=== PATIENT | female | born 1945 | race Caucasian/White ===

== ENCOUNTER 2019-05-28 18:06 | Inpatient (IN) | payer OTHER ==
[2019-05-28] MEDS ORDERED: ACETAMINOPHEN 325 MG TABLET (FP) PO ONE (18:14)
--- NOTE | 2019-05-28 19:01 | PDOC ---
Documentation entered by Yenny Stapleton SCRIBE, acting as scribe for Abhijit Adam MD. Abhijit Adam MD: This documentation has been prepared by the lucianibePieter Maria, SCRIBE, under my direction and personally reviewed by me in its entirety. I confirm that the documentation accurately reflects all work, treatment, procedures, and medical decision making performed by me. History of Present Illness - General Chief Complaint: Injury Stated Complaint: LOWER BACK PAIN History Source: Patient Exam Limitations: No Limitations - History of Present Illness Initial Comments: 05/28/19 18:23 Patient is a 73 year old female with a significant PMH of hyperthyroid, anxiety and depression who presents to the ED, via EMS, s/p fall earlier today. As per patient, she was opening her blinds, tripped, leaned against her bed and slid onto the floor. Patient states she fell onto her buttock. Patient then developed lower back pain radiating to lower legs. Patient did not take any medication for pain. Patient denies head injury. Denies loss of consciousness. Denies any other symptoms. Past History - Past Medical History Allergies/Adverse Reactions: Allergies Allergy/AdvReac Type Severity Reaction Status Date / Time No Known Allergies Allergy Verified 05/28/19 18:40 Home Medications: Ambulatory Orders Bupropion HCl [Bupropion Xl] 300 mg PO DAILY 05/28/19 Hyoscyamine Sulfate [Levsin 0.125MG Tablet -] 0.125 mg PO BID 05/28/19 Iron 65 mg PO DAILY 05/28/19 LORazepam [Ativan] 2 mg PO BID 05/28/19 Liothyronine Sodium 25 mcg PO DAILY 05/28/19 Omeprazole 40 mg PO DAILY 05/28/19 Sertraline HCl 100 mg PO DAILY 05/28/19 Ziprasidone HCl 160 mg PO HS 05/28/19 Review of Systems - Review of Systems Able to Perform ROS?: Yes Constitutional: No: Symptoms Reported, See HPI, Chills, Diaphoresis, Fever, Loss of Appetite, Malaise, Night Sweats, Weakness, Weight Stable, Unintentional Wgt. Loss, Unexplained wgt Loss, Other HEENTM: No: Symptoms Reported, See HPI, Eye Pain, Blurred Vision, Tearing, Recent change in vision, Double Vision, Cataracts, Ear Pain, Ocular Prothesis, Ear Discharge, Nose Pain, Nose Congestion, Tinnitus, Nose Bleeding, Hearing Loss , Throat Pain, Throat Swelling, Mouth Pain, Dental Problems, Difficulty Swallowing, Mouth Swelling, Other Respiratory: No: Symptoms reported, See HPI, Cough, Orthopnea, Shortness of Breath, SOB with Exertion, SOB at Rest, Stridor, Wheezing, Productive cough, Hemoptysis, Other Cardiac (ROS): No: Symptoms Reported, See HPI, Chest Pain, Edema, Irregular Heart Rate, Lightheadedness, Palpitations, Syncope, Chest Tightness, Other ABD/GI: No: Symptoms Reported, See HPI, Abdominal Distended, Abd. Pain w/ defecation, Blood Streaked Bowels, Constipated, Diarrhea, Difficulty Swallowing , Nausea, Poor Appetite, Poor Fluid Intake, Rectal Bleeding, Vomiting, Indigestion, Abdominal cramping, Tarry Stools, Other : No: Symptoms Reported, See HPI, Burning, Dysuria, Discharge, Frequency, Flank Pain, Hematuria, Incontinence, Pain, Urgency, Testicular Mass, Testicular Swelling, Lesions, Testicular Pain, Other Musculoskeletal: Yes: Other (Back Pain and leg pain). No: Symptoms Reported, See HPI, Back Pain, Gout, Joint Pain, Joint Swelling, Muscle Pain, Muscle Weakness, Neck Pain, Joint Stiffness Integumentary: No: Symptoms Reported, See HPI, Bruising, Change in Color, Change in Hair/Nails, Dryness, Erythema, Flushing, Lesions, Lumps, Pallor, Pruritus, Rash, Sweating, Other Neurological: No: Symptoms reported, See HPI, Headache, Numbness, Paresthesia, Pre-Existing Deficit, Seizure, Tingling, Tremors, Weakness, Unsteady Gait, Ataxia, Dizziness, Other Psychiatric: No: Anxiety, Depression, Frequent Crying, Stressors, Sleep Pattern Change, Emotional Problems, Mood Swings, Change in Appetite, Other Endocrine: No: Symptoms Reported, See HPI, Excessive Sweating, Flushing, Intolerance to Cold, Intolerance to Heat, Increased Hunger, Increased Thirst, Increased Urine, Unexplained Weight Gain, Unexplained Weight Loss, Change in Weight, Other Hematologic/Lymphatic: No: Symptoms Reported, See HPI, Anemia, Blood Clots, Easy Bleeding, Easy Bruising, Bleeding Diathesis, Lymph Node Abnormalities, Swollen Glands, Other All Other Systems: Reviewed and Negative *Physical Exam - Vital Signs Last Vital Signs Temp Pulse Resp BP Pulse Ox 97.5 F L 97 H 20 149/85 97 05/28/19 18:07 05/28/19 18:07 05/28/19 18:07 05/28/19 18:07 05/28/19 18:07 - Physical Exam Comments: 05/28/19 18:23 GENERAL: Well developed, well nourished. Awake and alert. No acute distress. HEENT: Normocephalic, atraumatic. PERRLA, EOMI. No conjunctival pallor. Sclera are non- icteric. Moist mucous membranes. Oropharynx is clear. NECK: Supple. Full ROM. No JVD. Carotid pulses 2+ and symmetric, without bruits. No thyromegaly. No lymphadenopathy. CARDIOVASCULAR: Regular rate and rhythm. No murmurs, rubs, or gallops. Distal pulses are 2+ and symmetric. PULMONARY: No evidence of respiratory distress. Lungs clear to auscultation bilaterally. No wheezing, rales or rhonchi. ABDOMINAL: Soft. Non-tender. Non-distended. No rebound or guarding. No organomegaly. Normoactive bowel sounds. MUSCULOSKELETAL Normal range of motion at all joints. No bony deformities or tenderness. No CVA tenderness. No spinal tenderness EXTREMITIES: No cyanosis. No clubbing. No edema. No calf tenderness. SKIN: + abrasions to b/l knees Warm and dry. Normal capillary refill. No rashes. No jaundice. NEUROLOGICAL: Alert, awake, appropriate. Cranial nerves 2-12 intact. No deficits to light touch and temperature in face, upper extremities and lower extremities. No motor deficits in the in face, upper extremities and lower extremities. Normoreflexic in the upper and lower extremities. Normal speech. Toes are down- going bilaterally. PSYCHIATRIC: Cooperative. Good eye contact. Appropriate mood and affect. ED Treatment Course - RADIOLOGY Radiology Studies Ordered: Category Date Time Status SPINE-LUMBAR SACRAL [RAD] Stat Radiology 05/28/19 18:14 Taken ED Progress Note - Progress Note Progress Note: 05/28/19 18:58 Xray lumbar spine: scoliosis, degenerative changes ? compression fracture Will obtain CT lumbar spine to r/o compression fracture Case to be endorsed to Dr. Esquivel at 1900. Discharge - Discharge Information Problems reviewed: Yes Clinical Impression/Diagnosis: Back pain Qualifiers: Back pain location: low back pain Chronicity: acute Back pain laterality: midline Sciatica presence: without sciatica Qualified Code(s): M54.5 - Low back pain Condition: Fair - Follow up/Referral - Patient Discharge Instructions - Post Discharge Activity
[2019-05-28] MEDS ORDERED: ACETAMINOPHEN 650 MG/20.3 ML ORAL SOLUTION (CUPS) ONE (19:23)
--- NOTE | 2019-05-28 21:16 | HP ---
Admitting History and Physical - Primary Care Physician PCP: Dr. Little - Admission Chief Complaint: low back pain s/p fall History of Present Illness: 73 year old female with a significant PMH of hyperthyroid, anxiety and depression who presents to the ED, via EMS, s/p fall earlier today. As per patient, she was opening her blinds, tripped, leaned against her bed and slid onto the floor. Patient states she fell onto her buttock. Patient then developed lower back pain radiating to lower legs. Patient did not take any medication for pain. Patient denies head injury. Denies loss of consciousness. Denies any other symptoms. History Source: Patient Limitations to Obtaining History: No Limitations - Past Medical History Gastrointestinal: Yes: GERD Psych: Yes: Anxiety, Bipolar, Depression Endocrine: Yes: Hypothyroidism - Past Surgical History Past Surgical History: Yes: None - Smoking History Smoking history: Never smoked Have you smoked in the past 12 months: No - Alcohol/Substance Use Hx Alcohol Use: No - Social History History of Recent Travel: No Home Medications - Allergies Allergies/Adverse Reactions: Allergies Allergy/AdvReac Type Severity Reaction Status Date / Time No Known Allergies Allergy Verified 05/28/19 18:40 - Home Medications Home Medications: Ambulatory Orders Bupropion HCl [Bupropion Xl] 300 mg PO DAILY 05/28/19 Hyoscyamine Sulfate [Levsin 0.125MG Tablet -] 0.125 mg PO BID 05/28/19 Iron 65 mg PO DAILY 05/28/19 LORazepam [Ativan] 2 mg PO BID 05/28/19 Liothyronine Sodium 25 mcg PO DAILY 05/28/19 Omeprazole 40 mg PO DAILY 05/28/19 Sertraline HCl 100 mg PO DAILY 05/28/19 Ziprasidone HCl 160 mg PO HS 05/28/19 Review of Systems - Review of Systems Constitutional: reports: No Symptoms Eyes: reports: No Symptoms HENT: reports: No Symptoms Neck: reports: No Symptoms Cardiovascular: reports: No Symptoms Respiratory: reports: No Symptoms Gastrointestinal: reports: No Symptoms Genitourinary: reports: No Symptoms Musculoskeletal: reports: Back Pain Integumentary: reports: No Symptoms Neurological: reports: No Symptoms Endocrine: reports: No Symptoms Hematology/Lymphatic: reports: No Symptoms Psychiatric: reports: No Symptoms Physical Examination Vital Signs: Vital Signs Temperature 97.5 F L 05/28/19 18:07 Pulse Rate 97 H 05/28/19 18:07 Respiratory Rate 20 05/28/19 18:07 Blood Pressure 149/85 05/28/19 18:07 O2 Sat by Pulse Oximetry (%) 97 05/28/19 18:07 Constitutional: Yes: No Distress, Calm Eyes: Yes: Conjunctiva Clear, EOM Intact HENT: Yes: Atraumatic, Normocephalic Neck: Yes: Supple, Trachea Midline Cardiovascular: Yes: Regular Rate and Rhythm Respiratory: Yes: Regular, CTA Bilaterally Gastrointestinal: Yes: Normal Bowel Sounds, Soft Musculoskeletal: Yes: WNL Edema: No Peripheral Pulses WNL: Yes Neurological: Yes: Alert, Oriented Imaging - Results X-ray: Report Reviewed (Xray lumbar spine: scoliosis, degenerative changes ? compression fracture) Problem List - Problems (1) Status post fall Code(s): Z91.81 - HISTORY OF FALLING (2) Ataxia Code(s): R27.0 - ATAXIA, UNSPECIFIED (3) Back pain Code(s): M54.9 - DORSALGIA, UNSPECIFIED Qualifiers: Back pain location: low back pain Chronicity: acute Back pain laterality : midline Sciatica presence: without sciatica Qualified Code(s): M54.5 - Low back pain (4) Depression Code(s): F32.9 - MAJOR DEPRESSIVE DISORDER, SINGLE EPISODE, UNSPECIFIED (5) Anxiety Code(s): F41.9 - ANXIETY DISORDER, UNSPECIFIED (6) GERD (gastroesophageal reflux disease) Code(s): K21.9 - GASTRO-ESOPHAGEAL REFLUX DISEASE WITHOUT ESOPHAGITIS (7) Hypothyroid Code(s): E03.9 - HYPOTHYROIDISM, UNSPECIFIED Assessment/Plan 73 year old female with a significant PMH of hyperthyroid, anxiety and depression who presents to the ED, via EMS, s/p fall earlier today, now with low back pain radiating down lower legs. # S/p fall # Lower back pain # Ataxia - Xray lumbar spine: scoliosis, degenerative changes ? compression fracture - CT Lumbar spine: compression fx of T12 with less than 20% height loss, and severe fxT11 ( appears old) - In ED given Tylenol - Pain management - follow up Ortho in AM - Physical therapy follow up # Pre-renal Azotemia - continue with IVF - follow up BMP in AM # Hypothyrodism -Liothyronine Sodium 25 mcg PO DAILY # Depression # Anxiety -Bupropion HCl 300 mg PO DAILY -LORazepam 2 mg PO BID -Sertraline HCl 100 mg PO DAILY -Ziprasidone HCl 160 mg PO HS - monitor for acute behavioral issues # GERD -Omeprazole 40 mg PO DAILY -Hyoscyamine Sulfate 0.125 mg PO BID DIET: Regular VTE: Heparin SQ Visit type - Emergency Visit Emergency Visit: Yes ED Registration Date: 05/28/19 Care time: The patient presented to the Emergency Department on the above date and was hospitalized for further evaluation of their emergent condition. - New Patient This patient is new to me today: Yes Date on this admission: 05/28/19 - Critical Care Critical Care patient: No
[2019-05-28 21:27] LABS: BASO % 0.4 % (0-2.0); HEMATOCRIT 42.4 % (32.4-45.2); HEMOGLOBIN 13.8 GM/dl (10.7-15.3); LYMPH % 14.3 % (8-40); MCH 31.5 pg (25.7-33.7); MCHC 32.6 g/dl (32.0-36.0); MEAN CELL VOLUME 96.8 fl (80-96); MEAN PLT VOLUME 7.3 fl (7.5-11.1); MONO % 4.6 % (3.8-10.2); NEUT % 79.7 % (42.8-82.8); PLATELET COUNT 252 K/MM3 (134-434); RBC 4.38 M/mm3 (3.60-5.2); RDW 13.5 % (11.6-15.6); WHITE BLOOD COUNT 10.5 K/mm3 (4.0-10.8)
[2019-05-28 21:37] LABS: ALBUMIN 3.6 g/dl (3.4-5.0); BILIRUBIN,TOTAL 0.2 mg/dl (0.2-1); CALCIUM 9.1 mg/dl (8.5-10); TOT PROT 6.4 g/dl (6.4-8.2)
--- NOTE | 2019-05-28 21:43 | PDOC ---
History of Present Illness - General Chief Complaint: Injury Stated Complaint: LOWER BACK PAIN Time Seen by Provider: 05/28/19 18:08 Past History - Past Medical History Allergies/Adverse Reactions: Allergies Allergy/AdvReac Type Severity Reaction Status Date / Time No Known Allergies Allergy Verified 05/28/19 18:40 Home Medications: Ambulatory Orders Bupropion HCl [Bupropion Xl] 300 mg PO DAILY 05/28/19 Hyoscyamine Sulfate [Levsin 0.125MG Tablet -] 0.125 mg PO BID 05/28/19 Iron 65 mg PO DAILY 05/28/19 LORazepam [Ativan] 2 mg PO BID 05/28/19 Liothyronine Sodium 25 mcg PO DAILY 05/28/19 Omeprazole 40 mg PO DAILY 05/28/19 Sertraline HCl 100 mg PO DAILY 05/28/19 Ziprasidone HCl 160 mg PO HS 05/28/19 COPD: No Thyroid Disease: Yes - Psycho Social/Smoking Cessation Hx Smoking History: Never smoked Have you smoked in the past 12 months: No Information on smoking cessation initiated: No Hx Alcohol Use: No Drug/Substance Use Hx: No *Physical Exam - Vital Signs Last Vital Signs Temp Pulse Resp BP Pulse Ox 97.5 F L 97 H 20 149/85 97 05/28/19 18:07 05/28/19 18:07 05/28/19 18:07 05/28/19 18:07 05/28/19 18:07 ED Treatment Course - LABORATORY CBC & Chemistry Diagram: 05/28/19 21:05 05/28/19 21:05 - ADDITIONAL ORDERS Additional order review: 05/28/19 21:05 RBC 4.38 MCV 96.8 H MCHC 32.6 RDW 13.5 MPV 7.3 L Neutrophils % 79.7 Lymphocytes % 14.3 Monocytes % 4.6 Eosinophils % 1.0 Basophils % 0.4 - Medications Given in the ED: ED Medications Discontinued Medications Generic Name Dose Route Start Last Admin Trade Name Freq PRN Reason Stop Dose Admin Acetaminophen 650 mg 05/28/19 18:14 05/28/19 19:26 Tylenol - PO 05/28/19 18:15 Not Given ONCE ONE Medical Decision Making - Medical Decision Making 05/28/19 21:41 received on signout. extensive degenerative disease on CT with old lower thoracic fracture. To my exam, no bony low back tenderness. She also has normal strength in lower extremities, though cannot ambulate because of poor coordination. Check labs to search for toxic/ metabolic etiology. Admit for serial exams Discharge - Discharge Information Problems reviewed: Yes Clinical Impression/Diagnosis: Back pain Qualifiers: Back pain location: low back pain Chronicity: acute Back pain laterality: midline Sciatica presence: without sciatica Qualified Code(s): M54.5 - Low back pain Condition: Fair - Follow up/Referral - Patient Discharge Instructions - Post Discharge Activity
--- NOTE | 2019-05-28 21:47 | PDOC ---
*Physical Exam - Vital Signs Last Vital Signs Temp Pulse Resp BP Pulse Ox 97.5 F L 97 H 20 149/85 97 05/28/19 18:07 05/28/19 18:07 05/28/19 18:07 05/28/19 18:07 05/28/19 18:07 ED Treatment Course - LABORATORY CBC & Chemistry Diagram: 05/28/19 21:05 05/28/19 21:05 - ADDITIONAL ORDERS Additional order review: Laboratory Results 05/28/19 21:05 Sodium 141 Potassium 4.0 Chloride 103 Carbon Dioxide 28 Anion Gap 10 BUN 31.0 H Creatinine 1.0 Est GFR (CKD-EPI)AfAm 64.27 Est GFR (CKD-EPI)NonAf 55.45 Random Glucose 104 Calcium 9.1 Total Bilirubin 0.2 AST 28 ALT 26 Alkaline Phosphatase 117 Total Protein 6.4 Albumin 3.6 05/28/19 21:05 RBC 4.38 MCV 96.8 H MCHC 32.6 RDW 13.5 MPV 7.3 L Neutrophils % 79.7 Lymphocytes % 14.3 Monocytes % 4.6 Eosinophils % 1.0 Basophils % 0.4 - Medications Given in the ED: ED Medications Discontinued Medications Generic Name Dose Route Start Last Admin Trade Name Freq PRN Reason Stop Dose Admin Acetaminophen 650 mg 05/28/19 18:14 05/28/19 19:26 Tylenol - PO 05/28/19 18:15 Not Given ONCE ONE Discharge - Discharge Information Problems reviewed: Yes Clinical Impression/Diagnosis: Back pain Qualifiers: Back pain location: low back pain Chronicity: acute Back pain laterality: midline Sciatica presence: without sciatica Qualified Code(s): M54.5 - Low back pain Condition: Fair - Admission Yes - Follow up/Referral - Patient Discharge Instructions - Post Discharge Activity
[2019-05-28] MEDS ORDERED: SODIUM CHLORIDE 0.9% 500 ML INFUS.BAG IV ONE (22:07)
[2019-05-28] MEDS ORDERED: SODIUM CHLORIDE 1,000 ML IV SCH (23:45)
[2019-05-29 08:13] LABS: HEMATOCRIT 38.3 % (32.4-45.2); HEMOGLOBIN 12.6 GM/dl (10.7-15.3); MCH 31.8 pg (25.7-33.7); MCHC 32.8 g/dl (32.0-36.0); MEAN CELL VOLUME 96.9 fl (80-96); MEAN PLT VOLUME 7.7 fl (7.5-11.1); PLATELET COUNT 169 K/MM3 (134-434); RBC 3.96 M/mm3 (3.60-5.2); WHITE BLOOD COUNT 5.6 K/mm3 (4.0-10.8)
[2019-05-29 08:17] LABS: CALCIUM 8.4 mg/dl (8.5-10); CREATININE 0.8 mg/dl (0.55-1.3); POTASSIUM 3.4 mmol/L (3.5-5.1)
[2019-05-29] MEDS ORDERED: PT OWN MED DRAWER 7, Y5N ONE (08:29)
[2019-05-29] MEDS ORDERED: POTASSIUM CHLORIDE TABS 20 MEQ TABLET.ER (FP) PO ONE (08:45)
[2019-05-29] MEDS ORDERED: HYOSCYAMINE SULFATE 0.125 MG TABLET PO SCH (10:00)
[2019-05-29] MEDS ORDERED: LORazepam 1 MG TABLET PO SCH (10:00)
[2019-05-29] MEDS: FERROUS SO4 325 MG TABLET (FP) PO SCH (10:08)
[2019-05-29] MEDS: HEPARIN NA (PORCINE) 5,000 UNITS/ML 1ML VIAL SQ SCH ×2 (10:08→21:30)
[2019-05-29] MEDS: SERTRALINE HCL 50 MG TABLET (FP) PO SCH (10:08)
[2019-05-29] MEDS: LIOTHYRONINE SODIUM 25 MCG TABLET PO SCH (10:09)
[2019-05-29] MEDS: PANTOPRAZOLE 40 MG TABLET (FP) PO SCH (10:09)
--- NOTE | 2019-05-29 12:17 | PN ---
Physical Exam: ADDITIONAL HPI Patient and HCP [facility] PCP is Dr. Adkins [phone]; called his office , she has not been seen there since 2016 [address]yschiatrist: Dr. Vadim Donohue: [phone]; cell [phone]; has been treating patient since 2001 for schizoaffective disorder and depression; has had multiple psych hospitalization over the years, none in the past few years; last time he was face to face with the patient was several years ago, conducts phone sessions, he has no information regarding her physicalhealth; the medications he prescribes are as follows: Ziprazadone PO 80 mg daily Sertraline 200mg daily Wellbutrin XL 300mg daily Liothyronine 25mcg daily (enhances effect of anti-depressants) Hyoscyamine 0.125mg BID Lorazepam 0.5mg QID3 Obtained records from [facility] 2015. Records show: Left total hip replacement Anterior 3mm listhesis of C2 on C3 03/16/16 CT spine: progressive erosive changes left C2-3 facet joint associated with edema, infectious v. inflammatory v. aggressive lesion; recommended MRI SUBJECTIVE: Patient seen and examined at bedside. Denies any type of pain. OBJECTIVE Vital Signs Period Temp Pulse Resp BP Sys/Miller Pulse Ox Last 24 Hr 97.5 F-98.2 F 88-106 17-20 117-149/70-96 93-97 GENERAL: The patient is A&O x 1 (month wrong, year 1970, place: meeting belcher) could not be reoriented; calm, friendly demeanor; thin, frail, cachectic. Protruding clavicles. Temporal wasting. Absence of body fat HEAD: Normal with no signs of trauma. EYES: PERRL, extraocular movements intact, sclera anicteric, conjunctiva clear. No ptosis. ENT: Missing teeth LUNGS: Breath sounds equal, clear to auscultation bilaterally, no wheezes, no crackles, no accessory muscle use. HEART: Regular rate and rhythm, S1, S2 ABDOMEN: Soft, nontender, nondistended, normoactive bowel sounds, no guarding, no rebound EXTREMITIES: Bilateral feet: multiple scabs on all toes, both feet; feet and lower ext deeply erythematous, 1+ DP pulses, warm NEUROLOGICAL: Cranial nerves II through XII grossly intact. Normal speech Laboratory Results - last 24 hr 05/28/19 05/28/19 05/29/19 21:05 21:05 06:55 WBC 10.5 5.6 RBC 4.38 3.96 Hgb 13.8 12.6 Hct 42.4 38.3 MCV 96.8 H 96.9 H MCH 31.5 31.8 MCHC 32.6 32.8 RDW 13.5 14.0 Plt Count 252 169 MPV 7.3 L 7.7 Absolute Neuts (auto) 8.4 Neutrophils % 79.7 Lymphocytes % 14.3 Monocytes % 4.6 Eosinophils % 1.0 Basophils % 0.4 Sodium 141 Potassium 4.0 Chloride 103 Carbon Dioxide 28 Anion Gap 10 BUN 31.0 H Creatinine 1.0 Est GFR (CKD-EPI)AfAm 64.27 Est GFR (CKD-EPI)NonAf 55.45 Random Glucose 104 Calcium 9.1 Total Bilirubin 0.2 AST 28 ALT 26 Alkaline Phosphatase 117 Total Protein 6.4 Albumin 3.6 05/29/19 06:55 WBC RBC Hgb Hct MCV MCH MCHC RDW Plt Count MPV Absolute Neuts (auto) Neutrophils % Lymphocytes % Monocytes % Eosinophils % Basophils % Sodium 142 Potassium 3.4 L Chloride 108 H Carbon Dioxide 27 Anion Gap 7 L BUN 21.0 H Creatinine 0.8 Est GFR (CKD-EPI)AfAm 84.18 Est GFR (CKD-EPI)NonAf 72.63 Random Glucose 76 Calcium 8.4 L Total Bilirubin AST ALT Alkaline Phosphatase Total Protein Albumin Active Medications Generic Name Dose Route Start Last Admin Trade Name Capoq PRN Reason Stop Dose Admin Bupropion HCl 300 mg 05/29/19 10:00 05/29/19 10:09 Wellbutrin Xl - PO 300 mg DAILY VALENCIA Administration Ferrous Sulfate 325 mg 05/29/19 10:00 05/29/19 10:08 Feosol - PO 325 mg DAILY VALENCIA Administration Heparin Sodium (Porcine) 5,000 unit 05/29/19 10:00 05/29/19 10:08 Heparin - SQ 5,000 unit BID VALENCIA Administration Liothyronine Sodium 25 mcg 05/29/19 10:00 05/29/19 10:09 Cytomel - PO 25 mcg DAILY VALENCIA Administration Lorazepam 2 mg 05/29/19 10:00 05/29/19 10:08 Ativan - PO 2 mg BID VALENCIA Administration Pantoprazole Sodium 40 mg 05/29/19 10:00 05/29/19 10:09 Protonix - PO 40 mg DAILY VALENCIA Administration Sertraline HCl 100 mg 05/29/19 10:00 05/29/19 10:08 Zoloft - PO 100 mg DAILY VALENCIA Administration Ziprasidone 160 mg 05/29/19 22:00 Geodon - PO HS VALENCIA ASSESSMENT/PLAN 73 year-old female with a PMH significant for schizoaffective disorder, depression, degenerative disc disease, s/p left total hip replacement. Has been treated via telephone sessions by her psychiatrist for several years. Has not seen PCP since ~2015. Last time brought to ED was to [place] in 2016. Adult Protective Services has been involved with patient. s/p fall at home Compression fractures --05/28 CT spine: T11 compression fracture which may be subacute; no obvious bony retropulsion; moderate T12 and mild to moderate L4 vertebral body compression fractures, chronic; at least moderate lumbar levoscoliosis; multilevel degenerate facet arthropathy; multilevel disc bulging; L3-L4 central canal stenosis --was unable to ambulate with PT --ortho consult pending Schizoaffective disorder --has had two episodes of acute agitation, one while in ED, and today on the floor; observed a rapid change in demeanor, from friendly and cooperative to suspicious, then agitated, then physically aggressive within several minutes; bitinge, threw ice water across the room onto a staff member; gave Haldol IVP 2mg --consult placed for Dr. Huynh for inpatient management --currently refusing PO meds; ziprasidone IV not in formulary; pharmacy ordered and will be here in am --for tonight will give ativan 1mg IM q6h PRN for extreme agitation, monitor respiratory status closely Prolonged QT interval --ECG from 2015 shows prolonged QTc 500; will attempt to get ECG now --check Mg level --keep K>4, Mg>2 --telemetry monitoring Hypokalemia --repleted FEN Fluids: NS@50mL/hr Electrolytes: replete as indicated Nutrition: regular diet DVT prophylaxis: subq heparin Physical therapy Dispo: continues to require inpatient care. Full code. Visit type - Emergency Visit Emergency Visit: Yes ED Registration Date: 05/28/19 Care time: The patient presented to the Emergency Department on the above date and was hospitalized for further evaluation of their emergent condition. - New Patient This patient is new to me today: Yes Date on this admission: 05/29/19 - Critical Care Critical Care patient: No
[2019-05-29] MEDS ORDERED: HALOPERIDOL LACTATE 5 MG/ML ONE (14:45)
[2019-05-29] MEDS ORDERED: HALOPERIDOL LACTATE 5 MG/ML IM ONE ×2 (15:00)
[2019-05-29] MEDS: ZIPRASIDONE 40 MG CAPSULE (FP) PO SCH ×2 (15:03→17:51)
[2019-05-29] MEDS: MUPIROCIN 2% TOPICAL OINTMENT 22 GM TUBE TP SCH (15:04)
[2019-05-29] MEDS ORDERED: SODIUM CHLORIDE 1,000 ML IV SCH (17:45)
[2019-05-29] MEDS ORDERED: LORazepam 2 MG/ML SDV VIAL IM PRN (17:52)
[2019-05-29 18:11] LABS: MAGNESIUM 2.1 mg/dL (1.8-2.4)
--- NOTE | 2019-05-29 18:32 | CONSULT ---
Consult Consult Specialty:: Vascular Surgery Reason for Consultation:: Bl lower extremity scabs. - History Source Limitations to Obtaining History: No Limitations - Past Medical History [employer]: Yes: Other (Schizo-affective disorder ) Gastrointestinal: Yes: GERD Psych: Yes: Anxiety, Bipolar, Depression Endocrine: Yes: Hypothyroidism - Past Surgical History Past Surgical History: Yes: None - Alcohol/Substance Use Hx Alcohol Use: No - Smoking History Smoking history: Never smoked Have you smoked in the past 12 months: No - Social History History of Recent Travel: No Home Medications - Allergies Allergies/Adverse Reactions: Allergies Allergy/AdvReac Type Severity Reaction Status Date / Time erythromycin base Allergy Severe Verified 05/29/19 16:36 Penicillins Allergy Severe Rash Verified 05/29/19 16:37 - Home Medications Home Medications: Ambulatory Orders Bupropion HCl [Bupropion Xl] 300 mg PO DAILY 05/28/19 LORazepam [Ativan] 0.5 mg PO QID 05/28/19 Liothyronine Sodium 25 mcg PO DAILY 05/28/19 Omeprazole 40 mg PO DAILY 05/28/19 Sertraline HCl 200 mg PO DAILY 05/28/19 Ziprasidone HCl 80 mg PO DAILY 05/28/19 Review of Systems - Review of Systems Constitutional: reports: No Symptoms Eyes: reports: No Symptoms HENT: reports: No Symptoms Neck: reports: No Symptoms Cardiovascular: reports: No Symptoms Respiratory: reports: No Symptoms Gastrointestinal: reports: No Symptoms Genitourinary: reports: No Symptoms Musculoskeletal: reports: No Symptoms Integumentary: reports: No Symptoms Neurological: reports: Confusion Endocrine: reports: No Symptoms Hematology/Lymphatic: reports: No Symptoms Physical Exam Vital Signs: Vital Signs Temperature 97.7 F 05/29/19 17:35 Pulse Rate 109 H 05/29/19 17:35 Respiratory Rate 20 05/29/19 17:35 Blood Pressure 145/87 05/29/19 17:35 O2 Sat by Pulse Oximetry (%) 95 05/29/19 14:00 Constitutional: Yes: Well Nourished, No Distress, Calm Eyes: Yes: WNL, Conjunctiva Clear, EOM Intact HENT: Yes: WNL, Atraumatic, Normocephalic Neck: Yes: WNL, Supple, Trachea Midline Cardiovascular: Yes: WNL, Regular Rate and Rhythm Respiratory: Yes: WNL, Regular, CTA Bilaterally Gastrointestinal: Yes: WNL, Normal Bowel Sounds ...Rectal Exam: Yes: WNL Renal/: Yes: WNL Breast(s): Yes: WNL Musculoskeletal: Yes: WNL Extremities: Yes: WNL, Other (Bl lower ext scabs on both feet. Palpable pulses. Dry extremities) Edema: No Peripheral Pulses WNL: Yes Integumentary: Yes: WNL Neurological: Yes: WNL, Alert, Oriented ...Motor Strength: WNL Psychiatric: Yes: WNL Labs: CBC, BMP 05/29/19 06:55 05/29/19 06:55 Problem List - Problems (1) Status post fall Assessment/Plan: Bl lower ext scabs with dryness. 1. Pt has bl lower ext palpable pulses. 2. Moisturize both legs. 3. BAcitracin to scabs on both feet daily. Barry Eller DO Code(s): Z91.81 - HISTORY OF FALLING
[2019-05-29] MEDS: LORazepam 0.5 MG TABLET PO SCH ×2 (18:35→21:31)
[2019-05-29] MEDS: BACITRACIN 15 GM TUBE TOPICAL OINTMENT TP SCH (18:59)
[2019-05-29] MEDS ORDERED: SERTRALINE HCL 50 MG TABLET (FP) PO ONE (19:17)
[2019-05-29] MEDS ORDERED: LORazepam 0.5 MG TABLET PO ONE (19:18)
[2019-05-29] MEDS ORDERED: ZIPRASIDONE 40 MG CAPSULE (FP) PO ONE (19:18)
[2019-05-29] MEDS: HYOSCYAMINE SULFATE 0.125 MG *ODT PO SCH (21:30)
[2019-05-29] MEDS: MINERAL OIL/PET HY-PHL TOPICAL OINTMENT 454 GM JAR TP SCH (21:31)
[2019-05-29] MEDS ORDERED: ZIPRASIDONE 40 MG CAPSULE (FP) PO SCH (22:00)
[2019-05-29] MEDS ORDERED: ZIPRASIDONE 80 MG CAPSULE PO SCH (22:00)
[2019-05-30 08:18] LABS: BASO % 0.8 % (0-2.0); HEMATOCRIT 39.9 % (32.4-45.2); LYMPH % 18.2 % (8-40); MCH 31.3 pg (25.7-33.7); MCHC 32.5 g/dl (32.0-36.0); MEAN CELL VOLUME 96.3 fl (80-96); MEAN PLT VOLUME 7.6 fl (7.5-11.1); MONO % 6.4 % (3.8-10.2); NEUT % 73.6 % (42.8-82.8); PLATELET COUNT 191 K/MM3 (134-434); RBC 4.14 M/mm3 (3.60-5.2); RDW 13.9 % (11.6-15.6); WHITE BLOOD COUNT 5.4 K/mm3 (4.0-10.8)
[2019-05-30 08:22] LABS: ALBUMIN 3.1 g/dl (3.4-5.0); BILIRUBIN,TOTAL 0.8 mg/dl (0.2-1); CALCIUM 8.7 mg/dl (8.5-10); CREATININE 0.8 mg/dl (0.55-1.3); MAGNESIUM 2.1 mg/dL (1.8-2.4); PHOSPHOROUS 3.6 mg/dl (2.5-4.9); TOT PROT 5.9 g/dl (6.4-8.2)
--- NOTE | 2019-05-30 09:27 | CON.PSY ---
Psychiatry Consult Chief Complaint: Patient admitted with a Compression Fracture of HIp. This 73 year old female with a long history of Schizo Affective Disorder and on Meds, being [id number] bya Psych in [facility]. tammy is a poor historian and has no relatives at this point. Her neighbor is her Health Care Proxy. Symptoms: reports: Depressed Mood, Inability to Control Temper, Aggressivity, Impulsivity - Previous Psychiatric Treatment Outpatient: More than 6 mos ago Inpatient: None - Previous Substance Abuse Treatment Outpatient: None Inpatient: None - Reason for Previous Treatment Reason for Previous Treatment: Psychotic Episode - Current Medications Current Medications: Active Medications Bacitracin (Bacitracin -) 1 applic TP DAILY [facility] Last Admin: 05/29/19 18:59 Dose: 1 applic Bupropion HCl (Wellbutrin Xl -) 300 mg PO DAILY [facility] Last Admin: 05/29/19 10:09 Dose: 300 mg Emollient Ointment (Aquaphor -) 1 applic TP BID [facility] Last Admin: 05/29/19 21:31 Dose: 1 applic Ferrous Sulfate (Feosol -) 325 mg PO DAILY [facility] Last Admin: 05/29/19 10:08 Dose: 325 mg Heparin Sodium (Porcine) (Heparin -) 5,000 unit SQ BID [facility] Last Admin: 05/29/19 21:30 Dose: Not Given Hyoscyamine Sulfate (Levsin Odt -) 0.125 mg PO BID [facility] Last Admin: 05/29/19 21:30 Dose: Not Given Sodium Chloride (Normal Saline -) 1,000 mls @ 50 mls/hr IV ASDIR [facility] Stop: 05/30/19 17:33 Last Admin: 05/29/19 17:50 Dose: 50 mls/hr Liothyronine Sodium (Cytomel -) 25 mcg PO DAILY [facility] Last Admin: 05/29/19 10:09 Dose: 25 mcg Lorazepam (Ativan -) 0.5 mg PO QID [facility] Last Admin: 05/29/19 21:31 Dose: Not Given Lorazepam (Ativan Injection -) 1 mg IM ONCE PRN PRN Reason: AGITATION Stop: 05/30/19 17:47 Last Admin: 05/29/19 20:19 Dose: 1 mg Mupirocin (Bactroban 2% Ointment -) 1 applic TP DAILY [facility] Last Admin: 05/29/19 15:04 Dose: 1 applic Pantoprazole Sodium (Protonix -) 40 mg PO DAILY [facility] Last Admin: 05/29/19 10:09 Dose: 40 mg Sertraline HCl (Zoloft -) 100 mg PO DAILY [facility] Last Admin: 05/29/19 10:08 Dose: 100 mg Ziprasidone (Geodon Injection -) 20 mg IM Q4H [facility] - Allergies Allergies: Allergies Allergy/AdvReac Type Severity Reaction Status Date / Time erythromycin base Allergy Severe Verified 05/29/19 16:36 Penicillins Allergy Severe Rash Verified 05/29/19 16:37 - Current Living Status Usual Living Arrangement: Alone - Current Mental Status Evaluation Appearance: Disheveled Attitude: Belligerent - Mood Mood: Angry - Speech/Language Expressive: Coherent - Psychomotor Activity Psychomotor Activity: Hyperactive - Thought Process Thought Process: Circumstantial - Thought Content Type: Visual Delusions: Absent - Self Perception Self Perception: No Impairment - Cognition Attention: Alert Orientation: Time Memory, Immediate Recall: Intact Memory, Short Term: 2/3 Memory, Remote with Promptin/3 - Concentration Serial Sevens Intact: No Simple Calculations Intact: Yes - Abstraction Proverb Interpretation: Impaired Judgement: Moderately Impaired - Insight Insight: Impaired - Impulse Control Impulse Control: Severly Impaired - Suicidal Ideation Suicidal Ideation: No - Homicidal Ideation Homicidal Ideation: No Assessment/Plan 1) [facility]
[2019-05-30] MEDS ORDERED: PT OWN MED DRAWER 7, Y5N ONE ×2 (09:56→20:59)
[2019-05-30] MEDS ORDERED: ZIPRASIDONE 20 MG VIAL IM SCH (10:00)
[2019-05-30] MEDS: HEPARIN NA (PORCINE) 5,000 UNITS/ML 1ML VIAL SQ SCH ×3 (10:10→21:15)
[2019-05-30] MEDS: LORazepam 0.5 MG TABLET PO SCH ×4 (10:11→21:04)
[2019-05-30] MEDS: LIOTHYRONINE SODIUM 25 MCG TABLET PO SCH (10:11)
[2019-05-30] MEDS: ZIPRASIDONE 40 MG CAPSULE (FP) PO SCH (10:15)
[2019-05-30] MEDS: SERTRALINE HCL 50 MG TABLET (FP) PO SCH (10:17)
[2019-05-30] MEDS: PANTOPRAZOLE 40 MG TABLET (FP) PO SCH (10:18)
[2019-05-30] MEDS: FERROUS SO4 325 MG TABLET (FP) PO SCH (10:18)
[2019-05-30] MEDS: HYOSCYAMINE SULFATE 0.125 MG *ODT PO SCH ×2 (10:19→21:05)
[2019-05-30] MEDS: BACITRACIN 15 GM TUBE TOPICAL OINTMENT TP SCH (10:21)
[2019-05-30] MEDS: MINERAL OIL/PET HY-PHL TOPICAL OINTMENT 454 GM JAR TP SCH ×2 (10:23→21:04)
[2019-05-30] MEDS: MUPIROCIN 2% TOPICAL OINTMENT 22 GM TUBE TP SCH (10:24)
--- NOTE | 2019-05-30 10:44 | EKG ---
Test Reason : Blood Pressure : / mmHG Vent. Rate : 111 BPM Atrial Rate : 111 BPM P-R Int : 148 ms QRS Dur : 078 ms QT Int : 348 ms P-R-T Axes : 073 -62 077 degrees QTc Int : 473 ms SINUS TACHYCARDIA POSSIBLE LEFT ATRIAL ENLARGEMENT LEFT AXIS DEVIATION ANTERIOR INFARCT , AGE UNDETERMINED ABNORMAL ECG Confirmed by MD KHRIS, NILAY ([id number]) on 05/30/2019 10:44:27 AM Referred By: HUMBERTO ANDRADE Confirmed By:NILAY PINEDO MD
--- NOTE | 2019-05-30 12:00 | PN ---
Progress Note (short form) - Note Progress Note: Ortho FULL CONSULT DICTATED BY DR. CLIFTON
--- NOTE | 2019-05-30 12:27 | CONS ---
ORTHOPAEDIC CONSULTATION [facility] DATE OF CONSULTATION: 05/30/2019 HISTORY: Patient is a 73-year-old female status post fall. Was initially complaining of some lower back pain but currently is not. Patient suffers from multiple psychiatric disorders. Difficult to get a concise history. On physical exam, patient has minimal pain in the paraspinal areas in the lower lumbar region. Good range of motion hip, knee, ankles, and toes, 5/5 motor, 2+ reflexes, intact sensation throughout. Able to straight leg raise. Negative femoral stress test, straight leg raise sign. X-rays and CAT scan revealed a chronic compression fracture L4 and T11 but no acute fracture or dislocation, lytic or blastic lesions. IMPRESSION: Chronic compression fractures seen on x-rays in a patient status post fall but with minimal, if any, symptoms currently. PLAN: Weightbearing as tolerated. Physical therapy. Discharge when medically okay. NAE CLIFTON M.D. ABAD/[id number]
--- NOTE | 2019-05-30 13:55 | PN ---
Physical Exam: SUBJECTIVE: Patient seen and examined. 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 Later in the afternoon, was oriented to place ([facility]) and month May. LUNGS: Breath sounds equal, clear to auscultation bilaterally, no wheezes, no crackles, no accessory muscle use. HEART: Regular rate and rhythm, S1, S2 ABDOMEN: Soft, nontender, nondistended, normoactive bowel sounds, no guarding, no rebound EXTREMITIES: Bilateral feet: multiple scabs on all toes, both feet; feet and lower ext deeply erythematous, 1+ DP pulses, warm NEUROLOGICAL: Cranial nerves II through XII grossly intact. Normal speech 000 Laboratory Results - last 24 hr 05/29/19 05/29/19 05/30/19 06:55 06:55 07:00 WBC 5.4 RBC 4.14 Hgb 13.0 Hct 39.9 MCV 96.3 H MCH 31.3 MCHC 32.5 RDW 13.9 Plt Count 191 MPV 7.6 Absolute Neuts (auto) 4.0 Neutrophils % 73.6 Lymphocytes % 18.2 Monocytes % 6.4 Eosinophils % 1.0 Basophils % 0.8 Sodium 142 Potassium 3.4 L Chloride 108 H Carbon Dioxide 27 Anion Gap 7 L BUN 21.0 H Creatinine 0.8 Est GFR (CKD-EPI)AfAm 84.18 Est GFR (CKD-EPI)NonAf 72.63 Random Glucose 76 Calcium 8.4 L Phosphorus Magnesium 2.1 Total Bilirubin AST ALT Alkaline Phosphatase Total Protein Albumin TSH 2.02 05/30/19 07:00 WBC RBC Hgb Hct MCV MCH MCHC RDW Plt Count MPV Absolute Neuts (auto) Neutrophils % Lymphocytes % Monocytes % Eosinophils % Basophils % Sodium 142 Potassium 4.0 Chloride 111 H Carbon Dioxide 26 Anion Gap 5 L BUN 19.0 H Creatinine 0.8 Est GFR (CKD-EPI)AfAm 84.18 Est GFR (CKD-EPI)NonAf 72.63 Random Glucose 93 Calcium 8.7 Phosphorus 3.6 Magnesium 2.1 Total Bilirubin 0.8 AST 23 ALT 22 Alkaline Phosphatase 98 D Total Protein 5.9 L Albumin 3.1 L TSH Active Medications Generic Name Dose Route Start Last Admin Trade Name Freq PRN Reason Stop Dose Admin Bacitracin 1 applic 05/29/19 18:45 05/30/19 10:21 Bacitracin - TP 1 applic DAILY [facility] Administration Bupropion HCl 300 mg 05/29/19 10:00 05/30/19 10:16 Wellbutrin Xl - PO 300 mg DAILY [facility] Administration Emollient Ointment 1 applic 05/29/19 22:00 05/30/19 10:23 Aquaphor - TP 1 applic BID [facility] Administration Ferrous Sulfate 325 mg 05/29/19 10:00 05/30/19 10:18 Feosol - PO 325 mg DAILY [facility] Administration Heparin Sodium (Porcine) 5,000 unit 05/29/19 10:00 05/30/19 10:34 Heparin - SQ Not Given BID [facility] Hyoscyamine Sulfate 0.125 mg 05/29/19 22:00 05/30/19 10:19 Levsin Odt - PO 0.125 mg BID [facility] Administration Sodium Chloride 1,000 mls @ 50 mls/hr 05/29/19 17:45 05/29/19 17:50 Normal Saline - IV 05/30/19 17:33 50 mls/hr ASDIR [facility] Administration Liothyronine Sodium 25 mcg 05/29/19 10:00 05/30/19 10:11 Cytomel - PO 25 mcg DAILY [facility] Administration Lorazepam 0.5 mg 05/29/19 18:00 05/30/19 10:11 Ativan - PO 0.5 mg QID [facility] Administration Lorazepam 1 mg 05/29/19 17:52 05/29/19 20:19 Ativan Injection - IM 05/30/19 17:47 1 mg ONCE PRN Administration AGITATION Mupirocin 1 applic 05/29/19 14:15 05/30/19 10:24 Bactroban 2% Ointment - TP 1 applic DAILY [facility] Administration Pantoprazole Sodium 40 mg 05/29/19 10:00 05/30/19 10:18 Protonix - PO 40 mg DAILY [facility] Administration Sertraline HCl 100 mg 05/29/19 10:00 05/30/19 10:17 Zoloft - PO 100 mg DAILY [facility] Administration Ziprasidone 80 mg 05/30/19 10:00 05/30/19 10:15 [place] - PO 80 mg DAILY [facility] Administration ASSESSMENT/PLAN 73 year-old female with a PMH significant for schizoaffective disorder, depression, degenerative disc disease, s/p left total hip replacement. Has been treated via telephone sessions by her psychiatrist for several years. Has not seen PCP since ~2015. Last time brought to ED was to [place] in 2016. s/p fall at home Compression fractures --05/28 CT spine: T11 compression fracture which may be subacute; no obvious bony retropulsion; moderate T12 and mild to moderate L4 vertebral body compression fractures, chronic; at least moderate lumbar levoscoliosis; multilevel degenerate facet arthropathy; multilevel disc bulging; L3-L4 central canal stenosis --was unable to ambulate with PT --ortho consult: no surgical intervention, weight-bearing as tolerated, PT Schizoaffective disorder --had two episodes of acute agitation in first 24 hours, much calmer today --seen and evaluated by Dr. Huynh, continue psych meds Prolonged QT interval --on ant-psychotic meds; avoid additional QT prolonging agents --keep K>4, Mg>2 --telemetry monitoring Severe protein calorie malnutrition --BMI 14.8, severe depletion of subq fat and muscle mass in the orbital, temporal and clavicular regions FEN Fluids: PO intake adequate Electrolytes: replete as indicated Nutrition: regular diet DVT prophylaxis: subq heparin Physical therapy Dispo: continues to require inpatient care. Full code Visit type - Emergency Visit Emergency Visit: Yes ED Registration Date: 05/28/19 Care time: The patient presented to the Emergency Department on the above date and was hospitalized for further evaluation of their emergent condition. - New Patient This patient is new to me today: No - Critical Care Critical Care patient: No
[2019-05-30] MEDS: SENNOSIDES 8.6MG TABLET (FP) PO SCH (21:05)
[2019-05-31] MEDS: ZIPRASIDONE 40 MG CAPSULE (FP) PO SCH (09:18)
[2019-05-31] MEDS: LORazepam 0.5 MG TABLET PO SCH ×2 (09:19→21:24)
[2019-05-31] MEDS: HEPARIN NA (PORCINE) 5,000 UNITS/ML 1ML VIAL SQ SCH ×2 (09:22→21:31)
[2019-05-31] MEDS: PANTOPRAZOLE 40 MG TABLET (FP) PO SCH (09:22)
[2019-05-31] MEDS: SERTRALINE HCL 50 MG TABLET (FP) PO SCH (09:22)
[2019-05-31] MEDS: FERROUS SO4 325 MG TABLET (FP) PO SCH (09:22)
[2019-05-31] MEDS ORDERED: PT OWN MED DRAWER 7, Y5N ONE ×2 (09:45→21:18)
[2019-05-31] MEDS: LIOTHYRONINE SODIUM 25 MCG TABLET PO SCH (09:49)
[2019-05-31] MEDS: BACITRACIN 15 GM TUBE TOPICAL OINTMENT TP SCH (09:50)
[2019-05-31] MEDS: MUPIROCIN 2% TOPICAL OINTMENT 22 GM TUBE TP SCH (09:50)
[2019-05-31] MEDS: HYOSCYAMINE SULFATE 0.125 MG *ODT PO SCH ×2 (09:50→21:25)
[2019-05-31] MEDS: MINERAL OIL/PET HY-PHL TOPICAL OINTMENT 454 GM JAR TP SCH ×2 (09:50→21:24)
--- NOTE | 2019-05-31 10:22 | PN ---
Physical Exam: SUBJECTIVE: Patient seen and examined oob to chair. Went for barium swallow earlier, tolerated procedure. OBJECTIVE: Vital Signs Period Temp Pulse Resp BP Sys/Miller Pulse Ox Last 24 Hr 97.4 F-99.1 F 78-93 19-20 134-150/69-81 94-98 GENERAL: Resting comfortably, sleeping but arousable. LUNGS: Breath sounds equal, clear to auscultation bilaterally, no wheezes, no crackles, no accessory muscle use. HEART: Regular rate and rhythm, S1, S2 ABDOMEN: Soft, nontender, nondistended EXTREMITIES: 2+ pulses, warm, well-perfused, no edema. Scabs on feet and legs improving. NEUROLOGICAL: Cranial nerves II through XII grossly intact. Normal speech, gait not observed. Active Medications Generic Name Dose Route Start Last Admin Trade Name Freq PRN Reason Stop Dose Admin Bacitracin 1 applic 05/29/19 18:45 05/31/19 09:50 Bacitracin - TP 1 applic DAILY [facility] Administration Bupropion HCl 300 mg 05/29/19 10:00 05/31/19 09:22 Wellbutrin Xl - PO 300 mg DAILY [facility] Administration Emollient Ointment 1 applic 05/29/19 22:00 05/31/19 09:50 Aquaphor - TP 1 applic BID [facility] Administration Ferrous Sulfate 325 mg 05/29/19 10:00 05/31/19 09:22 Feosol - PO 325 mg DAILY [facility] Administration Heparin Sodium (Porcine) 5,000 unit 05/29/19 10:00 05/31/19 09:22 Heparin - SQ 5,000 unit BID [facility] Administration Hyoscyamine Sulfate 0.125 mg 05/29/19 22:00 05/31/19 09:50 Levsin Odt - PO 0.125 mg BID [facility] Administration Liothyronine Sodium 25 mcg 05/29/19 10:00 05/31/19 09:49 Cytomel - PO 25 mcg DAILY [facility] Administration Lorazepam 0.5 mg 05/29/19 18:00 05/31/19 09:19 Ativan - PO 0.5 mg QID [facility] Administration Mupirocin 1 applic 05/29/19 14:15 05/31/19 09:50 Bactroban 2% Ointment - TP 1 applic DAILY [facility] Administration Pantoprazole Sodium 40 mg 05/29/19 10:00 05/31/19 09:22 Protonix - PO 40 mg DAILY [facility] Administration Senna 2 tab 05/30/19 22:00 05/30/19 21:05 Senna - PO 2 tab HS [facility] Administration Sertraline HCl 100 mg 05/29/19 10:00 05/31/19 09:22 Zoloft - PO 100 mg DAILY [facility] Administration Ziprasidone 80 mg 05/30/19 10:00 05/31/19 09:18 Geodon - PO 80 mg DAILY [facility] Administration ASSESSMENT/PLAN 73 year-old female with a PMH significant for schizoaffective disorder, depression, degenerative disc disease, s/p left total hip replacement. Has been treated via telephone sessions by her psychiatrist for several years. Has not seen PCP since ~2015. Last time brought to ED was to [place] in 2016. s/p fall at home Compression fractures --05/28 CT spine: T11 compression fracture which may be subacute; no obvious bony retropulsion; moderate T12 and mild to moderate L4 vertebral body compression fractures, chronic; at least moderate lumbar levoscoliosis; multilevel degenerate facet arthropathy; multilevel disc bulging; L3-L4 central canal stenosis --receives daily PT, still has not walked --ortho consult: no surgical intervention, weight-bearing as tolerated, PT Schizoaffective disorder --had two episodes of acute agitation in first 24 hours, mood is much better on current psych drug regimen --seen and evaluated by Dr. Huynh, continue psych meds Prolonged QT interval --on ant-psychotic meds; avoid additional QT prolonging agents --keep K>4, Mg>2 --telemetry monitoring Severe protein calorie malnutrition --BMI 14.8, severe depletion of subq fat and muscle mass in the orbital, temporal and clavicular regions Swallow evaluation --barium swallow today, normal study FEN Fluids: PO intake adequate Electrolytes: replete as indicated Nutrition: regular diet, ensure, magic cup DVT prophylaxis: subq heparin Physical therapy Dispo: continues to require inpatient care. Full code Visit type - Emergency Visit Emergency Visit: Yes ED Registration Date: 05/28/19 Care time: The patient presented to the Emergency Department on the above date and was hospitalized for further evaluation of their emergent condition. - New Patient This patient is new to me today: No - Critical Care Critical Care patient: No
[2019-05-31] MEDS: NYSTATIN 100,000 UNIT/GM TOPICAL CREAM 15 GM TUBE TP SCH (21:51)
[2019-05-31] MEDS: SENNOSIDES 8.6MG TABLET (FP) PO SCH (21:52)
[2019-05-31] MEDS ORDERED: SODIUM CHLORIDE 1,000 ML IV SCH (22:00)
--- NOTE | 2019-06-01 10:00 | PN ---
Physical Exam: SUBJECTIVE: Patient seen and examined at bedside. OBJECTIVE: Vital Signs Period Temp Pulse Resp BP Sys/Miller Pulse Ox Last 24 Hr 97.7 F-98.6 F 80-102 14-20 109-177/59-87 93-95 GENERAL: The patient is awake, alert, anxious, distressed, resisting care; cachectic LUNGS: CTA HEART: Regular rate and rhythm, S1, S2 ABDOMEN: Soft, nontender, nondistended, normoactive bowel sounds, no guarding, no rebound EXTREMITIES: 2+ pulses, warm, well-perfused, no edema. NEUROLOGICAL: Cranial nerves II through XII grossly intact. SKIN: Bilateral feet: many of scabs seen on admission now resolved; skin intact ; venous stasis changes Active Medications Generic Name Dose Route Start Last Admin Trade Name Freq PRN Reason Stop Dose Admin Bacitracin 1 applic 05/29/19 18:45 05/31/19 09:50 Bacitracin - TP 1 applic DAILY [facility] Administration Bupropion HCl 300 mg 05/29/19 10:00 05/31/19 09:22 Wellbutrin Xl - PO 300 mg DAILY [facility] Administration Emollient Ointment 1 applic 05/29/19 22:00 05/31/19 21:24 Aquaphor - TP 1 applic BID [facility] Administration Heparin Sodium (Porcine) 5,000 unit 05/29/19 10:00 05/31/19 21:31 Heparin - SQ 5,000 unit BID [facility] Administration Hyoscyamine Sulfate 0.125 mg 05/29/19 22:00 05/31/19 21:25 Levsin Odt - PO 0.125 mg BID [facility] Administration Liothyronine Sodium 25 mcg 05/29/19 10:00 05/31/19 09:49 Cytomel - PO 25 mcg DAILY [facility] Administration Lorazepam 0.5 mg 05/31/19 22:00 05/31/19 21:24 Ativan - PO 0.5 mg BID [facility] Administration Mupirocin 1 applic 05/29/19 14:15 05/31/19 09:50 Bactroban 2% Ointment - TP 1 applic DAILY [facility] Administration Nystatin 1 applic 05/31/19 22:00 05/31/19 21:51 Mycostatin Cream - TP 1 applic BID [facility] Administration Pantoprazole Sodium 40 mg 05/29/19 10:00 05/31/19 09:22 Protonix - PO 40 mg DAILY [facility] Administration Senna 2 tab 05/30/19 22:00 05/31/19 21:52 Senna - PO 2 tab HS [facility] Administration Sertraline HCl 100 mg 05/29/19 10:00 05/31/19 09:22 Zoloft - PO 100 mg DAILY [facility] Administration Ziprasidone 80 mg 05/30/19 10:00 05/31/19 09:18 Geodon - PO 80 mg DAILY [facility] Administration ASSESSMENT/PLAN 73 year-old female with a PMH significant for schizoaffective disorder, depression, degenerative disc disease, s/p left total hip replacement. Admitted following a fall at home. s/p fall at home Compression fractures, chronic --05/28 CT spine: T11 compression fracture which may be subacute; no obvious bony retropulsion; moderate T12 and mild to moderate L4 vertebral body compression fractures, chronic; at least moderate lumbar levoscoliosis; multilevel degenerate facet arthropathy; multilevel disc bulging; L3-L4 central canal stenosis --ortho consult: no surgical intervention, weight-bearing as tolerated, PT; will order lumbar corset Schizoaffective disorder --had two episodes of acute agitation in first 24 hours; mental status waxes and wanes --seen and evaluated by Dr. Huynh, continue psych meds Fungal dermatitis --erythematous papular rash across back --Nystatin cream BID Peripheral vascular disease --chronic venous stasis changes --scabbing improved with Aquaphor Knee abrasions --present on admission --mupirocin Prolonged QT interval --on ant-psychotic meds; avoid additional QT prolonging agents --keep K>4, Mg>2 Severe protein calorie malnutrition --BMI 14.8, severe depletion of subq fat and muscle mass in the orbital, temporal and clavicular regions FEN Fluids: PO intake adequate Electrolytes: replete as indicated Nutrition: regular diet, magic cup, Ensure DVT prophylaxis: subq heparin Physical therapy Dispo: continues to require inpatient care. Full code Visit type - Emergency Visit Emergency Visit: Yes ED Registration Date: 05/28/19 Care time: The patient presented to the Emergency Department on the above date and was hospitalized for further evaluation of their emergent condition. - New Patient This patient is new to me today: No - Critical Care Critical Care patient: No
[2019-06-01] MEDS: MINERAL OIL/PET HY-PHL TOPICAL OINTMENT 454 GM JAR TP SCH ×2 (10:03→21:48)
[2019-06-01] MEDS: LORazepam 0.5 MG TABLET PO SCH (10:04)
[2019-06-01] MEDS: BACITRACIN 15 GM TUBE TOPICAL OINTMENT TP SCH (10:04)
[2019-06-01] MEDS: MUPIROCIN 2% TOPICAL OINTMENT 22 GM TUBE TP SCH (10:04)
[2019-06-01] MEDS: HEPARIN NA (PORCINE) 5,000 UNITS/ML 1ML VIAL SQ SCH ×2 (10:05→21:47)
[2019-06-01] MEDS: ZIPRASIDONE 40 MG CAPSULE (FP) PO SCH (10:05)
[2019-06-01] MEDS: PANTOPRAZOLE 40 MG TABLET (FP) PO SCH (10:06)
[2019-06-01] MEDS: SERTRALINE HCL 50 MG TABLET (FP) PO SCH (10:06)
[2019-06-01] MEDS ORDERED: PT OWN MED DRAWER 7, Y5N ONE (10:23)
[2019-06-01] MEDS: NYSTATIN 100,000 UNIT/GM TOPICAL CREAM 15 GM TUBE TP SCH ×2 (10:29→21:49)
--- NOTE | 2019-06-01 10:57 | CONSULT ---
Consult Consult Specialty:: podiatry Reason for Consultation:: b/l wounds - History of Present Illness History of Present Illness: s/p fall admitted with fractures and scabbing on feet. - Past Medical History BAGGAGE PORTER: Yes: Other (Schizo-affective disorder ) Gastrointestinal: Yes: GERD Psych: Yes: Anxiety, Bipolar, Depression Endocrine: Yes: Hypothyroidism Dermatology: Yes: Other (b/l LE scabbing, no erythema, no edema, no ope wound, no signs of infection) - Past Surgical History Past Surgical History: Yes: None - Alcohol/Substance Use Hx Alcohol Use: No - Smoking History Smoking history: Never smoked Have you smoked in the past 12 months: No - Social History Usual Living Arrangement: Alone History of Recent Travel: No Home Medications - Allergies Allergies/Adverse Reactions: Allergies Allergy/AdvReac Type Severity Reaction Status Date / Time erythromycin base Allergy Severe Verified 05/29/19 16:36 Penicillins Allergy Severe Rash Verified 05/29/19 16:37 - Home Medications Home Medications: Ambulatory Orders Bupropion HCl [Bupropion Xl] 300 mg PO DAILY 05/28/19 LORazepam [Ativan] 0.5 mg PO QID 05/28/19 Liothyronine Sodium 25 mcg PO DAILY 05/28/19 Omeprazole 40 mg PO DAILY 05/28/19 Sertraline HCl 200 mg PO DAILY 05/28/19 Ziprasidone HCl 80 mg PO DAILY 05/28/19 Physical Exam Vital Signs: Vital Signs Temperature 98.2 F 06/01/19 06:00 Pulse Rate 94 H 06/01/19 06:00 Respiratory Rate 18 06/01/19 06:00 Blood Pressure 138/79 06/01/19 06:56 O2 Sat by Pulse Oximetry (%) 94 L 06/01/19 06:00 Labs: CBC, BMP 05/30/19 07:00 05/30/19 07:00 Assessment/Plan 73 y/o schizophrenic female s/p fall with compression fracture Evaluated and reviewed cont bacitracin stable scabs on feet b/l f/u as outpatient; no acute podiatric care needed at this time Thank you for this consult.
[2019-06-01] MEDS: LIOTHYRONINE SODIUM 25 MCG TABLET PO SCH (12:13)
[2019-06-01] MEDS: HYOSCYAMINE SULFATE 0.125 MG *ODT PO SCH (12:13)
--- NOTE | 2019-06-01 15:52 | HOSP ---
Subjective - Review of Symptoms Events since last encounter: Patient with increasing lethargy. Periods of wakefulness and interaction with the staff less frequent over the past 48 hours, noticeably after administration of morning meds. On 05/31, decreased ativan 0.5mg QID to BID but lethargy persisting today, will d/c. Will also discontinue hyoscyamine, not clear why patient was on med at home , contraindicated under [place]ers criteria. Neuro consult pending. Will discuss with Dr. Huynh. Physical Examination Vital Signs: Vital Signs Temperature 97.6 F 06/01/19 14:11 Pulse Rate 84 06/01/19 14:11 Respiratory Rate 16 06/01/19 14:11 Blood Pressure 149/80 06/01/19 14:11 O2 Sat by Pulse Oximetry (%) 100 06/01/19 14:11 Labs: CBC, BMP 05/30/19 07:00 05/30/19 07:00
[2019-06-01 16:18] LABS: BASO % 0.6 % (0-2.0); EOS % 0.8 % (0-4.5); HEMOGLOBIN 12.9 GM/dl (10.7-15.3); LYMPH % 23.7 % (8-40); MCH 30.9 pg (25.7-33.7); MCHC 31.5 g/dl (32.0-36.0); MEAN CELL VOLUME 98.1 fl (80-96); MEAN PLT VOLUME 7.7 fl (7.5-11.1); MONO % 8.2 % (3.8-10.2); NEUT % 66.7 % (42.8-82.8); PLATELET COUNT 160 K/MM3 (134-434); RBC 4.18 M/mm3 (3.60-5.2); RDW 14.5 % (11.6-15.6); WHITE BLOOD COUNT 5.9 K/mm3 (4.0-10.8)
[2019-06-01 16:31] LABS: ALBUMIN 3.2 g/dl (3.4-5.0); BILIRUBIN,TOTAL 0.4 mg/dl (0.2-1); CALCIUM 8.6 mg/dl (8.5-10); CREATININE 0.7 mg/dl (0.55-1.3); MAGNESIUM 2.3 mg/dL (1.8-2.4); PHOSPHOROUS 3.3 mg/dl (2.5-4.9); POTASSIUM 3.9 mmol/L (3.5-5.1); TOT PROT 5.8 g/dl (6.4-8.2)
[2019-06-01 16:38] LABS: BILIRUBIN,DIRECT 0.1 mg/dL (0.0-0.2)
--- NOTE | 2019-06-01 18:07 | CON.NEURO ---
Consult - History of Present Illness History of Present Illness: 73 year old female with a significant PMH of hyperthyroid, anxiety and depression who presents to the ED, via EMS, s/p fall, found to have thoracic compression FX. Patient then developed lower back pain radiating to lower legs. Patient did not take any medication for pain. Patient denies head injury. Denies loss of consciousness. 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: Other (Schizo-affective disorder ) Gastrointestinal: Yes: GERD Psych: Yes: Anxiety, Bipolar, Depression Endocrine: Yes: Hypothyroidism Dermatology: Yes: Other (b/l LE scabbing, no erythema, no edema, no ope wound, no signs of infection) - Past Surgical History Past Surgical History: Yes: None - Alcohol/Substance Use Hx Alcohol Use: No - Smoking History Smoking history: Never smoked Have you smoked in the past 12 months: No - Social History Usual Living Arrangement: Alone History of Recent Travel: No Home Medications - Allergies Allergies/Adverse Reactions: Allergies Allergy/AdvReac Type Severity Reaction Status Date / Time erythromycin base Allergy Severe Verified 05/29/19 16:36 Penicillins Allergy Severe Rash Verified 05/29/19 16:37 - Home Medications Home Medications: Ambulatory Orders Bupropion HCl [Bupropion Xl] 300 mg PO DAILY 05/28/19 LORazepam [Ativan] 0.5 mg PO QID 05/28/19 Liothyronine Sodium 25 mcg PO DAILY 05/28/19 Omeprazole 40 mg PO DAILY 05/28/19 Sertraline HCl 200 mg PO DAILY 05/28/19 Ziprasidone HCl 80 mg PO DAILY 05/28/19 Physical Exam-Neuro Vital Signs: Vital Signs Temperature 97.6 F 06/01/19 14:11 Pulse Rate 84 06/01/19 14:11 Respiratory Rate 16 06/01/19 14:11 Blood Pressure 149/80 06/01/19 14:11 O2 Sat by Pulse Oximetry (%) 100 06/01/19 14:11 Constitutional: Yes: Cachectic (poorly arousable, but then wakes up, difficult answering orientation questions, follow simple request, EOMI, no facial, motor : neck dec ROM , no focal weakness but very poor effort ) Labs: CBC, BMP 06/01/19 15:55 06/01/19 15:55 Problem List - Problems (1) Dementia Code(s): F03.90 - UNSPECIFIED DEMENTIA WITHOUT BEHAVIORAL DISTURBANCE (2) Ataxia Code(s): R27.0 - ATAXIA, UNSPECIFIED (3) Back pain Code(s): M54.9 - DORSALGIA, UNSPECIFIED Qualifiers: Back pain location: low back pain Chronicity: acute Back pain laterality : midline Sciatica presence: without sciatica Qualified Code(s): M54.5 - Low back pain (4) Depression Code(s): F32.9 - MAJOR DEPRESSIVE DISORDER, SINGLE EPISODE, UNSPECIFIED Assessment/Plan 73 year old female with a significant PMH of hyperthyroid, anxiety and depression who presents to the ED, via EMS, s/p fall, found to have thoracic compression FX. Patient then developed lower back pain radiating to lower legs. Patient did not take any medication for pain. Patient denies head injury. Denies loss of consciousness. called for change MS Xavi smith stopped this AM, limited mobility as per staff from home , she lives alone, appears cachetic --poorly arousable now on barely answers any questions, does not know yr , place, date ; AP : suspect dementia with underlying depression /schizoaffective DO , very poorly deconditioned / ? malnourished, no clear evidence of meningitis, seizure , stroke no evidence of tardive dyskinesia limit sedatives/anticholinergics if this is sig change form her baseline would check HD CT check B12/ B1 /VIT E /vit D SW/ likely candidate for NH given poor functional status and cognitive state PSYCH FU DR KRUEGER
[2019-06-01] MEDS: SENNOSIDES 8.6MG TABLET (FP) PO SCH (21:48)
[2019-06-02] MEDS ORDERED: PT OWN MED DRAWER 7, Y5N ONE (09:50)
[2019-06-02] MEDS: SERTRALINE HCL 50 MG TABLET (FP) PO SCH (10:00)
[2019-06-02] MEDS: ZIPRASIDONE 40 MG CAPSULE (FP) PO SCH ×2 (10:00→11:53)
[2019-06-02] MEDS: PANTOPRAZOLE 40 MG TABLET (FP) PO SCH ×2 (10:00→10:19)
[2019-06-02] MEDS: BACITRACIN 15 GM TUBE TOPICAL OINTMENT TP SCH (10:01)
[2019-06-02] MEDS: MINERAL OIL/PET HY-PHL TOPICAL OINTMENT 454 GM JAR TP SCH ×2 (10:01→22:31)
[2019-06-02] MEDS: HEPARIN NA (PORCINE) 5,000 UNITS/ML 1ML VIAL SQ SCH ×2 (10:01→22:31)
[2019-06-02] MEDS: MUPIROCIN 2% TOPICAL OINTMENT 22 GM TUBE TP SCH (10:01)
--- NOTE | 2019-06-02 10:01 | PN ---
Physical Exam: SUBJECTIVE: Patient seen and examined at bedside. OBJECTIVE: Vital Signs Period Temp Pulse Resp BP Sys/Miller Pulse Ox Last 24 Hr 97.6 F-99.0 F 82-92 14-19 136-168/77-90 94-100 GENERAL: The patient is awake, oriented x 2 but says she lives in [place]. LUNGS: CTA HEART: Regular rate and rhythm, S1, S2 ABDOMEN: Soft, nontender, nondistended, normoactive bowel sounds EXTREMITIES: 2+ pulses, warm, well-perfused, no edema. Scabbing on lower extremities much improved. NEUROLOGICAL: Cranial nerves II through XII grossly intact. SKIN: Warm, dry, normal turgor, no rashes or lesions noted Laboratory Results - last 24 hr 06/01/19 06/01/19 06/01/19 15:55 15:55 18:30 WBC 5.9 RBC 4.18 Hgb 12.9 Hct 41.0 MCV 98.1 H MCH 30.9 MCHC 31.5 L RDW 14.5 Plt Count 160 MPV 7.7 Absolute Neuts (auto) 4.0 Neutrophils % 66.7 Lymphocytes % 23.7 Monocytes % 8.2 Eosinophils % 0.8 Basophils % 0.6 Sodium 143 Potassium 3.9 Chloride 109 H Carbon Dioxide 30 Anion Gap 4 L BUN 22.0 H Creatinine 0.7 Est GFR (CKD-EPI)AfAm 98.92 Est GFR (CKD-EPI)NonAf 85.35 Random Glucose 103 Calcium 8.6 Phosphorus 3.3 Magnesium 2.3 Total Bilirubin 0.4 Direct Bilirubin 0.1 AST 16 ALT 19 Alkaline Phosphatase 99 Total Protein 5.8 L Albumin 3.2 L Vitamin B12 451 Urine Color Urine Appearance Urine pH Urine Protein Urine Glucose (UA) Urine Ketones Urine Blood Urine Nitrite Urine Bilirubin Urine Urobilinogen Ur Leukocyte Esterase 06/01/19 19:00 WBC RBC Hgb Hct MCV MCH MCHC RDW Plt Count MPV Absolute Neuts (auto) Neutrophils % Lymphocytes % Monocytes % Eosinophils % Basophils % Sodium Potassium Chloride Carbon Dioxide Anion Gap BUN Creatinine Est GFR (CKD-EPI)AfAm Est GFR (CKD-EPI)NonAf Random Glucose Calcium Phosphorus Magnesium Total Bilirubin Direct Bilirubin AST ALT Alkaline Phosphatase Total Protein Albumin Vitamin B12 Urine Color Yellow Urine Appearance Clear Urine pH 7.0 Urine Protein Negative Urine Glucose (UA) Negative Urine Ketones Negative Urine Blood Negative Urine Nitrite Negative Urine Bilirubin Negative Urine Urobilinogen 0.2 Ur Leukocyte Esterase Negative Active Medications Generic Name Dose Route Start Last Admin Trade Name Freq PRN Reason Stop Dose Admin Bacitracin 1 applic 05/29/19 18:45 06/01/19 10:04 Bacitracin - TP 1 applic DAILY VALENCIA Administration Bupropion HCl 300 mg 05/29/19 10:00 06/01/19 10:06 Wellbutrin Xl - PO 300 mg DAILY VALENCIA Administration Emollient Ointment 1 applic 05/29/19 22:00 06/01/19 21:48 Aquaphor - TP 1 applic BID VALENCIA Administration Heparin Sodium (Porcine) 5,000 unit 05/29/19 10:00 06/01/19 21:47 Heparin - SQ 5,000 unit BID VALENCIA Administration Liothyronine Sodium 25 mcg 05/29/19 10:00 06/01/19 12:13 Cytomel - PO Not Given DAILY VALENCIA Mupirocin 1 applic 05/29/19 14:15 06/01/19 10:04 Bactroban 2% Ointment - TP 1 applic DAILY VALENCIA Administration Nystatin 1 applic 05/31/19 22:00 06/01/19 21:49 Mycostatin Cream - TP 1 applic BID VALENCIA Administration Pantoprazole Sodium 40 mg 05/29/19 10:00 06/01/19 10:06 Protonix - PO 40 mg DAILY VALENCIA Administration Senna 2 tab 05/30/19 22:00 06/01/19 21:48 Senna - PO 2 tab HS VALENCIA Administration Sertraline HCl 100 mg 05/29/19 10:00 06/01/19 10:06 Zoloft - PO 100 mg DAILY VALENCIA Administration Ziprasidone 80 mg 05/30/19 10:00 06/01/19 10:05 Geodon - PO 80 mg DAILY VALENCIA Administration ASSESSMENT/PLAN 73 year-old female with a PMH significant for schizoaffective disorder, depression, degenerative disc disease, s/p left total hip replacement. Admitted following a fall at home. s/p fall at home Compression fractures, chronic --05/28 CT spine: T11 compression fracture which may be subacute; no obvious bony retropulsion; moderate T12 and mild to moderate L4 vertebral body compression fractures, chronic; at least moderate lumbar levoscoliosis; multilevel degenerate facet arthropathy; multilevel disc bulging; L3-L4 central canal stenosis --ortho consult: no surgical intervention, weight-bearing as tolerated, PT; will order lumbar corset Schizoaffective disorder --had two episodes of acute agitation in first 24 hours; in the past 48 hours has been somnolent and lethargic --have weaned off ativan, stopped hyoscyamine (anticholinergic), and stopped protonix, see if mental status improves --psych following Fungal dermatitis --erythematous papular rash across back --Nystatin cream BID Peripheral vascular disease --chronic venous stasis changes --scabbing improved with Aquaphor Knee abrasions --present on admission --mupirocin Prolonged QT interval --on ant-psychotic meds; avoid additional QT prolonging agents --keep K>4, Mg>2 Severe protein calorie malnutrition --BMI 14.8, severe depletion of subq fat and muscle mass in the orbital, temporal and clavicular regions FEN Fluids: PO intake adequate Electrolytes: replete as indicated Nutrition: regular diet, magic cup, Ensure DVT prophylaxis: subq heparin Physical therapy Dispo: continues to require inpatient care. Full code Visit type - Emergency Visit Emergency Visit: Yes ED Registration Date: 05/28/19 Care time: The patient presented to the Emergency Department on the above date and was hospitalized for further evaluation of their emergent condition. - New Patient This patient is new to me today: No - Critical Care Critical Care patient: No
[2019-06-02] MEDS: NYSTATIN 100,000 UNIT/GM TOPICAL CREAM 15 GM TUBE TP SCH ×2 (10:02→22:31)
[2019-06-02] MEDS: LIOTHYRONINE SODIUM 25 MCG TABLET PO SCH (10:02)
[2019-06-02] MEDS: dilTIAZem HCL 50 MG/10 ML - 10 ML VIAL IVPUSH SCH ×2 (10:45→11:35)
[2019-06-02] MEDS ORDERED: LORazepam 2 MG/ML SDV VIAL ONE (10:52)
--- NOTE | 2019-06-02 11:16 | HOSP ---
Subjective - Review of Symptoms Events since last encounter: Summoned to patient's room for elevated BP 174/134, p120. ECG: sinus tach @139 BP 185/118 Physical exam General/neuro: non verbal, making soft repetitive sounds, not following commands ; extremities tensed Lungs: rapid shallow breathing CV: S1, S2, regular, rapid Assessment Sinus tachycardia --had been attempting to wean ativan for lethargy, last dose was 24 hours ago ; ativan 1mg IM given; resume 0.25mg IM q12h, go back up to q6h if needed --cardizem IVP 10mg x 2 pushes --BP improved after the second push of cardizem -->131/99, p93 --if mental status improves may start PO cardizem --echo --cardiology consult Physical Examination Vital Signs: Vital Signs Temperature 99.0 F 06/02/19 05:00 Pulse Rate 85 06/02/19 05:00 Respiratory Rate 18 06/02/19 05:00 Blood Pressure 162/90 06/02/19 05:00 O2 Sat by Pulse Oximetry (%) 95 06/02/19 06:22 Labs: CBC, BMP 06/01/19 15:55 06/01/19 15:55
[2019-06-02 11:20] LABS: BASO % 0.5 % (0-2.0); EOS % 0.2 % (0-4.5); HEMATOCRIT 43.9 % (32.4-45.2); HEMOGLOBIN 14.4 GM/dl (10.7-15.3); LYMPH % 9.6 % (8-40); MCH 31.9 pg (25.7-33.7); MCHC 32.8 g/dl (32.0-36.0); MEAN CELL VOLUME 97.5 fl (80-96); MEAN PLT VOLUME 7.5 fl (7.5-11.1); MONO % 3.1 % (3.8-10.2); NEUT % 86.6 % (42.8-82.8); PLATELET COUNT 241 K/MM3 (134-434); RBC 4.51 M/mm3 (3.60-5.2); RDW 14.3 % (11.6-15.6); WHITE BLOOD COUNT 8.8 K/mm3 (4.0-10.8)
[2019-06-02] MEDS: ZIPRASIDONE 20 MG VIAL IM SCH (11:29)
[2019-06-02 11:34] LABS: ALBUMIN 3.6 g/dl (3.4-5.0); BILIRUBIN,TOTAL 0.6 mg/dl (0.2-1); CALCIUM 9.2 mg/dl (8.5-10); CREATININE 0.8 mg/dl (0.55-1.3); MAGNESIUM 2.1 mg/dL (1.8-2.4); PHOSPHOROUS 3.5 mg/dl (2.5-4.9); POTASSIUM 4.1 mmol/L (3.5-5.1); TOT PROT 6.6 g/dl (6.4-8.2)
[2019-06-02] MEDS ORDERED: LORazepam 2 MG/ML SDV VIAL IM ONE (12:00)
[2019-06-02] MEDS ORDERED: DEXTROSE 5%-0.45% SALINE 1,000 ML IV SCH (13:30)
--- NOTE | 2019-06-02 13:55 | ECHO ---
Name: ONEILL, RAGHU Exam:Adult Echocardiogram Study Date: 06/02/2019 12:53 PM Age: 73 yrs Height: 66 in Weight: 97 lb BSA: 1.5 m2 MMode/2D Measurements & Calculations IVSd: 0.93 cm Ao root diam: 3.2 cm LVIDd: 2.9 cm LA dimension: 1.9 cm LVIDs: 2.2 cm LVPWd: 1.0 cm LVPWs: 0.83 cm EDV(Teich): 30.9 ml ESV(Teich): 15.3 ml LVOT diam: 1.7 cm Doppler Measurements & Calculations MV E max miguel: 65.4 cm/sec MV A max miguel: 88.2 cm/sec MV dec slope: 407.6 cm/sec2 MV E/A: 0.74 Ao V2 max: 85.7 cm/sec LV V1 max P.5 mmHg Ao max P.9 mmHg LV V1 max: 78.6 cm/sec BRDOY(V,D): 2.1 cm2 TR max miguel: 191.0 cm/sec PA V2 max: 64.1 cm/sec TR max P.6 mmHg PA max P.6 mmHg Left Ventricle There is mild concentric left ventricular hypertrophy. Left ventricular systolic function is normal. Ejection Fraction = 55-60%. Right Ventricle The right ventricle is normal in size and function. Atria Normal left and right atrial size and function. Mitral Valve There is mild mitral valve thickening. There is no mitral valve stenosis. Tricuspid Valve The tricuspid valve is not well visualized, but is grossly normal. There is mild tricuspid regurgitat ion. Right ventricular systolic pressure is normal. Aortic Valve The aortic valve opens well. No hemodynamically significant valvular aortic stenosis. Pulmonic Valve The pulmonic valve is not well visualized. There is no pulmonic valvular stenosis. Great Vessels The aortic root is normal size. Pericardium/Pleura Trivial pericardial effusion not hemodynamically significant. Interpretation Summary There is mild concentric left ventricular hypertrophy. Left ventricular systolic function is normal. Ejection Fraction = 55-60%. The right ventricle is normal in size and function. There is mild mitral valve thickening. There is mild tricuspid regurgitation. Right ventricular systolic pressure is normal. Trivial pericardial effusion not hemodynamically significant MD Rangel *Amber 06/02/2019 01:55 PM
[2019-06-02] MEDS ORDERED: ZIPRASIDONE 20 MG VIAL IM PRN (16:02)
--- NOTE | 2019-06-02 16:37 | CON.CARD ---
Cardiology Consult (text) - Consultation Consultation Note: cc: fall hpi: 73 f hx hyperthyroid,dementia, depression, anxiety here s/p fall. She says she tripped near her bed and fell but had no prodrome sxs or loc. Denies frequent falls. No cp sob palps dizzy loc pnd orthopnea le edema. Denies hx hrt dz. pmh: per hpi psh: denies social: no tob fam: unknown ros: per hpi; all others nl meds: Ambulatory Orders Bupropion HCl [Bupropion Xl] 300 mg PO DAILY 05/28/19 LORazepam [Ativan] 0.5 mg PO QID 05/28/19 Liothyronine Sodium 25 mcg PO DAILY 05/28/19 Omeprazole 40 mg PO DAILY 05/28/19 Sertraline HCl 200 mg PO DAILY 05/28/19 Ziprasidone HCl 80 mg PO DAILY 05/28/19 pe: Vital Signs Period Temp Pulse Resp BP Sys/Miller Pulse Ox Last 24 Hr 98.0 F-99.5 F 82-125 15-24 119-190/77-173 94-100 nad no jvd rrr s1s2 no mrg cta bl nl eff awake alert no le e/c/c abd nt nd pos bs no jaundice diaphoresis abd nt nd pos bs Laboratory Last Values WBC 8.8 K/mm3 (4.0-10.8) 06/02/19 11:00 RBC 4.51 M/mm3 (3.60-5.2) 06/02/19 11:00 Hgb 14.4 GM/dl (10.7-15.3) 06/02/19 11:00 Hct 43.9 % (32.4-45.2) 06/02/19 11:00 MCV 97.5 fl (80-96) H 06/02/19 11:00 MCH 31.9 pg (25.7-33.7) 06/02/19 11:00 MCHC 32.8 g/dl (32.0-36.0) 06/02/19 11:00 RDW 14.3 % (11.6-15.6) 06/02/19 11:00 Plt Count 241 K/MM3 (134-434) 06/02/19 11:00 MPV 7.5 fl (7.5-11.1) 06/02/19 11:00 Absolute Neuts (auto) 7.7 K/mm3 06/02/19 11:00 Neutrophils % 86.6 % (42.8-82.8) H 06/02/19 11:00 Lymphocytes % 9.6 % (8-40) 06/02/19 11:00 Monocytes % 3.1 % (3.8-10.2) L 06/02/19 11:00 Eosinophils % 0.2 % (0-4.5) 06/02/19 11:00 Basophils % 0.5 % (0-2.0) 06/02/19 11:00 Sodium 140 mmol/L (136-145) 06/02/19 11:00 Potassium 4.1 mmol/L (3.5-5.1) 06/02/19 11:00 Chloride 107 mmol/L (98-107) 06/02/19 11:00 Carbon Dioxide 26 mmol/L (21-32) 06/02/19 11:00 Anion Gap 7 MMOL/L (8-16) L 06/02/19 11:00 BUN 23.0 mg/dl (7-18) H 06/02/19 11:00 Creatinine 0.8 mg/dl (0.55-1.3) 06/02/19 11:00 Est GFR (CKD-EPI)AfAm 84.18 06/02/19 11:00 Est GFR (CKD-EPI)NonAf 72.63 06/02/19 11:00 Random Glucose 131 mg/dl (74-106) H 06/02/19 11:00 Calcium 9.2 mg/dl (8.5-10) 06/02/19 11:00 Phosphorus 3.5 mg/dl (2.5-4.9) 06/02/19 11:00 Magnesium 2.1 mg/dL (1.8-2.4) 06/02/19 11:00 Total Bilirubin 0.6 mg/dl (0.2-1) 06/02/19 11:00 Direct Bilirubin 0.1 mg/dL (0.0-0.2) 06/01/19 15:55 AST 22 U/L (15-37) 06/02/19 11:00 ALT 20 U/L (13-61) 06/02/19 11:00 Alkaline Phosphatase 109 U/L (45-117) D 06/02/19 11:00 Troponin I < 0.03 ng/ml (0.00-0.05) 06/02/19 11:00 Total Protein 6.6 g/dl (6.4-8.2) 06/02/19 11:00 Albumin 3.6 g/dl (3.4-5.0) 06/02/19 11:00 Vitamin B12 451 pg/ml (193-986) 06/01/19 18:30 TSH 2.02 uIU/ml (0.358-3.74) 05/29/19 06:55 Urine Color Yellow 06/01/19 19:00 Urine Appearance Clear 06/01/19 19:00 Urine pH 7.0 (4.5-8) 06/01/19 19:00 Urine Protein Negative (NEGATIVE) 06/01/19 19:00 Urine Glucose (UA) Negative (NEGATIVE) 06/01/19 19:00 Urine Ketones Negative (NEGATIVE) 06/01/19 19:00 Urine Blood Negative (NEGATIVE) 06/01/19 19:00 Urine Nitrite Negative (NEGATIVE) 06/01/19 19:00 Urine Bilirubin Negative (NEGATIVE) 06/01/19 19:00 Urine Urobilinogen 0.2 (0.2-1.0) 06/01/19 19:00 Ur Leukocyte Esterase Negative (NEGATIVE) 06/01/19 19:00 echo 05/2019: mild lvh, nl lvef, nl rv, mild tr, nl rvsp cxr: clear lungs ecg: sr nl intervals no ischemic changes tele: sr a/p: 73 f hx hyperthyroid,dementia, depression, anxiety here s/p fall. fall: -seems mechanical -echo and tele benign -pt/rehab eval htn: -no known hx htn but having episodes of htn here. Possibly related to episodes of agitation and withdrawal from ativan. Continue to monitor for now, if has frequent elevations then would start cardizem 120 mg qd. sinus tachy: -likely related to psych issues and psych med adjustments -ecg, tsh, tele benign -cont tele for now
[2019-06-02] MEDS ORDERED: LORazepam 2 MG/ML SDV VIAL IM SCH (22:00)
[2019-06-02] MEDS: SENNOSIDES 8.6MG TABLET (FP) PO SCH (22:31)
--- NOTE | 2019-06-02 23:34 | EKG ---
Test Reason : Blood Pressure : / mmHG Vent. Rate : 109 BPM Atrial Rate : 109 BPM P-R Int : 138 ms QRS Dur : 068 ms QT Int : 342 ms P-R-T Axes : 075 -70 090 degrees QTc Int : 460 ms POOR DATA QUALITY, INTERPRETATION MAY BE ADVERSELY AFFECTED SINUS TACHYCARDIA POSSIBLE LEFT ATRIAL ENLARGEMENT LEFT ANTERIOR FASCICULAR BLOCK CANNOT RULE OUT ANTERIOR INFARCT (CITED ON OR BEFORE 29-MAY-2019) ABNORMAL ECG WHEN COMPARED WITH ECG OF 29-MAY-2019 18:08, QUESTIONABLE CHANGE IN INITIAL FORCES OF ANTERIOR LEADS Confirmed by MD Sandro, Silvestre ([id number]) on 06/02/2019 11:34:34 PM Referred By: MADIHA ANDRADE Confirmed By:Silvestre Jo MD
[2019-06-03] MEDS ORDERED: dilTIAZem HCL 30 MG TABLET (FP) PO ONE (08:27)
[2019-06-03] MEDS: SERTRALINE HCL 50 MG TABLET (FP) PO SCH (08:30)
[2019-06-03] MEDS: ZIPRASIDONE 20 MG VIAL IM SCH (08:30)
--- NOTE | 2019-06-03 08:35 | PN ---
Physical Exam: SUBJECTIVE: Patient seen and examined at bedside. BP elevated this morning. started cardizem CD 120mg last night; give 30mg PO now, titrate as needed NO ATIVAN - causes respiratory distress Give morning meds at 8am Can titrate geodon up to 20mg IM twice a day (MDD 40mg) Discussed with Iain Huynh OBJECTIVE: Vital Signs Period Temp Pulse Resp BP Sys/Miller Pulse Ox Last 24 Hr 98.2 F-99.5 F 83-125 15-24 119-190/78-173 96-100 GENERAL: The patient is awake, oriented x 2, lives in [place]. LUNGS: CTA HEART: Regular rate and rhythm, S1, S2 ABDOMEN: Soft, nontender, nondistended, normoactive bowel sounds EXTREMITIES: 2+ pulses, warm, well-perfused, no edema. Scabbing on lower extremities resolved. NEUROLOGICAL: Cranial nerves II through XII grossly intact. SKIN: Warm, dry, normal turgor, no rashes or lesions noted Laboratory Results - last 24 hr 06/02/19 06/02/19 06/02/19 11:00 11:00 11:00 WBC 8.8 RBC 4.51 Hgb 14.4 Hct 43.9 MCV 97.5 H MCH 31.9 MCHC 32.8 RDW 14.3 Plt Count 241 MPV 7.5 Absolute Neuts (auto) 7.7 Neutrophils % 86.6 H Lymphocytes % 9.6 Monocytes % 3.1 L Eosinophils % 0.2 Basophils % 0.5 Sodium 140 Potassium 4.1 Chloride 107 Carbon Dioxide 26 Anion Gap 7 L BUN 23.0 H Creatinine 0.8 Est GFR (CKD-EPI)AfAm 84.18 Est GFR (CKD-EPI)NonAf 72.63 Random Glucose 131 H Calcium 9.2 Phosphorus 3.5 Magnesium 2.1 Total Bilirubin 0.6 AST 22 ALT 20 Alkaline Phosphatase 109 D Troponin I < 0.03 Total Protein 6.6 Albumin 3.6 06/02/19 16:50 WBC RBC Hgb Hct MCV MCH MCHC RDW Plt Count MPV Absolute Neuts (auto) Neutrophils % Lymphocytes % Monocytes % Eosinophils % Basophils % Sodium Potassium Chloride Carbon Dioxide Anion Gap BUN Creatinine Est GFR (CKD-EPI)AfAm Est GFR (CKD-EPI)NonAf Random Glucose Calcium Phosphorus Magnesium Total Bilirubin AST ALT Alkaline Phosphatase Troponin I < 0.03 Total Protein Albumin Active Medications Generic Name Dose Route Start Last Admin Trade Name Paco PRN Reason Stop Dose Admin Bacitracin 1 applic 05/29/19 18:45 06/02/19 10:01 Bacitracin - TP 1 applic DAILY VALENCIA Administration Bupropion HCl 300 mg 05/29/19 10:00 06/02/19 10:00 Wellbutrin Xl - PO 300 mg DAILY VALENCIA Administration Diltiazem HCl 120 mg 06/02/19 22:00 06/02/19 22:30 Cardizem Cd - PO 120 mg DAILY VALENCIA Administration Diltiazem HCl 30 mg 06/03/19 08:27 Cardizem - PO 06/03/19 08:28 ONCE ONE Emollient Ointment 1 applic 05/29/19 22:00 06/02/19 22:31 Aquaphor - TP 1 applic BID VALENCIA Administration Heparin Sodium (Porcine) 5,000 unit 05/29/19 10:00 06/02/19 22:31 Heparin - SQ 5,000 unit BID VALENCIA Administration Dextrose/Sodium Chloride 1,000 mls @ 50 mls/hr 06/02/19 13:30 06/02/19 13:38 D5-1/2ns - IV 50 mls/hr ASDIR VALENCIA Administration Liothyronine Sodium 25 mcg 05/29/19 10:00 06/02/19 10:02 Cytomel - PO 25 mcg DAILY VALENCIA Administration Mupirocin 1 applic 05/29/19 14:15 06/02/19 10:01 Bactroban 2% Ointment - TP 1 applic DAILY VALENCIA Administration Nystatin 1 applic 05/31/19 22:00 06/02/19 22:31 Mycostatin Cream - TP 1 applic BID VALENCIA Administration Senna 2 tab 05/30/19 22:00 06/02/19 22:31 Senna - PO 2 tab HS VALENCIA Administration Sertraline HCl 100 mg 05/29/19 10:00 06/02/19 10:00 Zoloft - PO 100 mg DAILY VALENCIA Administration Ziprasidone 20 mg 06/02/19 11:30 06/02/19 11:29 Geodon Injection - IM 20 mg DAILY VALENCIA Administration Ziprasidone 10 mg 06/02/19 16:02 Geodon Injection - IM ONCE PRN AGITATION ASSESSMENT/PLAN: 73 year-old female with a PMH significant for schizoaffective disorder, depression, degenerative disc disease, s/p left total hip replacement. Admitted following a fall at home. s/p fall at home Compression fractures, chronic --05/28 CT spine: T11 compression fracture which may be subacute; no obvious bony retropulsion; moderate T12 and mild to moderate L4 vertebral body compression fractures, chronic; at least moderate lumbar levoscoliosis; multilevel degenerate facet arthropathy; multilevel disc bulging; L3-L4 central canal stenosis --ortho consult: no surgical intervention, weight-bearing as tolerated, PT Schizoaffective disorder --mental status waxes and wanes; at her most lucent, responds to most questions with the answer "yes", makes eye contact, eats food that is fed to her ; other times somnolent, sometimes mildly agitated; no further repeat of the psychotic episodes witnessed in the first 24 hours --no ativan as it leads to oversedation and respiratory depression --reviewed meds with Dr. Huynh yesterday, continue bupropion, sertraline, ziprasidone, liothyronine Hypertension --yesterday's events recorded in previous notes, spike in BP and HR, treated with cardizem IVP x 2, started Cardizem CD 120mg last night; hypertensive again this morning, gave 30mg PO dose --06/02 Echo: mild cLVH; LV normal, EF 55-60%; RV normal; mild TR --cardiology following Fungal dermatitis --erythematous papular rash across back --Nystatin cream BID Peripheral vascular disease --chronic venous stasis changes --scabbing improved with Aquaphor Knee abrasions --present on admission --mupirocin Prolonged QT interval --on ant-psychotic meds; avoid additional QT prolonging agents --keep K>4, Mg>2 Severe protein calorie malnutrition --BMI 14.8, severe depletion of subq fat and muscle mass in the orbital, temporal and clavicular regions Functional quadriplegia --completely dependent for all ADLs, needs to be fed, toileted, positioned FEN Fluids: PO intake adequate Electrolytes: replete as indicated Nutrition: passed barium swallow exam, regular diet, Ensure, Magic Cup DVT prophylaxis: subq heparin Physical therapy Dispo: continues to require inpatient care. Full code Visit type - Emergency Visit Emergency Visit: Yes ED Registration Date: 05/28/19 Care time: The patient presented to the Emergency Department on the above date and was hospitalized for further evaluation of their emergent condition. - New Patient This patient is new to me today: No - Critical Care Critical Care patient: No
[2019-06-03] MEDS: NYSTATIN 100,000 UNIT/GM TOPICAL CREAM 15 GM TUBE TP SCH ×2 (09:28→21:40)
[2019-06-03] MEDS: HEPARIN NA (PORCINE) 5,000 UNITS/ML 1ML VIAL SQ SCH ×2 (09:28→21:40)
[2019-06-03] MEDS: MINERAL OIL/PET HY-PHL TOPICAL OINTMENT 454 GM JAR TP SCH ×2 (09:29→21:40)
[2019-06-03] MEDS: LIOTHYRONINE SODIUM 25 MCG TABLET PO SCH (09:29)
[2019-06-03] MEDS: BACITRACIN 15 GM TUBE TOPICAL OINTMENT TP SCH (09:29)
[2019-06-03] MEDS: MUPIROCIN 2% TOPICAL OINTMENT 22 GM TUBE TP SCH (09:29)
[2019-06-03] MEDS: SENNOSIDES 8.6MG TABLET (FP) PO SCH (21:40)
[2019-06-04] MEDS: LIOTHYRONINE SODIUM 25 MCG TABLET PO SCH (07:58)
[2019-06-04] MEDS: SERTRALINE HCL 50 MG TABLET (FP) PO SCH (07:58)
[2019-06-04] MEDS: BACITRACIN 15 GM TUBE TOPICAL OINTMENT TP SCH (09:29)
[2019-06-04] MEDS: MUPIROCIN 2% TOPICAL OINTMENT 22 GM TUBE TP SCH (09:29)
[2019-06-04] MEDS: MINERAL OIL/PET HY-PHL TOPICAL OINTMENT 454 GM JAR TP SCH ×2 (09:29→22:03)
[2019-06-04] MEDS: ZIPRASIDONE 20 MG VIAL IM SCH ×2 (09:29→20:37)
[2019-06-04] MEDS: NYSTATIN 100,000 UNIT/GM TOPICAL CREAM 15 GM TUBE TP SCH ×2 (09:29→22:04)
[2019-06-04] MEDS: HEPARIN NA (PORCINE) 5,000 UNITS/ML 1ML VIAL SQ SCH ×2 (09:29→22:04)
--- NOTE | 2019-06-04 09:44 | PN ---
Physical Exam: SUBJECTIVE: Patient seen and examined at bedside, remains weak/ lethargic but easily arousable. OBJECTIVE: Vital Signs Period Temp Pulse Resp BP Sys/Miller Pulse Ox Last 24 Hr 97.9 F-99.0 F 82-95 17-20 116-171/65-99 96-100 GENERAL: The patient is awake, alert, no acute distress. HEAD: Normal with no signs of trauma. EYES: PERRL, extraocular movements intact, sclera anicteric, conjunctiva clear. No ptosis. ENT: Ears normal, nares patent, oropharynx clear without exudates, moist mucous membranes. NECK: Trachea midline, full range of motion, supple. LUNGS: Breath sounds equal, clear to auscultation bilaterally, no wheezes, no crackles, no accessory muscle use. HEART: Regular rate and rhythm, S1, S2 without murmur, rub or gallop. ABDOMEN: Soft, nontender, nondistended, normoactive bowel sounds, no guarding, no rebound, no hepatosplenomegaly, no masses. EXTREMITIES: 2+ pulses, warm, well-perfused, no edema. NEUROLOGICAL: Cranial nerves II through XII grossly intact. Normal speech, gait not observed. PSYCH: Normal mood, normal affect. SKIN: Pressure ulcers sacral and left hip, left knee abrasion intact with dsg Active Medications Generic Name Dose Route Start Last Admin Trade Name Freq PRN Reason Stop Dose Admin Bacitracin 1 applic 05/29/19 18:45 06/04/19 09:29 Bacitracin - TP 1 applic DAILY VALENCIA Administration Bupropion HCl 300 mg 06/04/19 08:00 06/04/19 07:57 Wellbutrin Xl - PO 300 mg 0800 VALENCIA Administration Diltiazem HCl 180 mg 06/03/19 22:00 06/03/19 21:40 Cardizem Cd - PO 180 mg HS VALENCIA Administration Emollient Ointment 1 applic 05/29/19 22:00 06/04/19 09:29 Aquaphor - TP 1 applic BID VALENCIA Administration Heparin Sodium (Porcine) 5,000 unit 05/29/19 10:00 06/04/19 09:29 Heparin - SQ 5,000 unit BID VALENCIA Administration Liothyronine Sodium 25 mcg 06/04/19 08:00 06/04/19 07:58 Cytomel - PO 25 mcg DAILY@0800 VALENCIA Administration Mupirocin 1 applic 05/29/19 14:15 06/04/19 09:29 Bactroban 2% Ointment - TP 1 applic DAILY VALENCIA Administration Nystatin 1 applic 05/31/19 22:00 06/04/19 09:29 Mycostatin Cream - TP 1 applic BID VALENCIA Administration Senna 2 tab 05/30/19 22:00 06/03/19 21:40 Senna - PO 2 tab HS VALENCIA Administration Sertraline HCl 100 mg 06/04/19 08:00 06/04/19 07:58 Zoloft - PO 100 mg DAILY@0800 VALENCIA Administration Ziprasidone 20 mg 06/02/19 11:30 06/04/19 09:29 Geodon Injection - IM 20 mg DAILY VALENCIA Administration Ziprasidone 10 mg 06/02/19 16:02 Geodon Injection - IM ONCE PRN AGITATION Imaging 05/28 CT spine: T11 compression fracture which may be subacute; no obvious bony retropulsion; moderate T12 and mild to moderate L4 vertebral body compression fractures, chronic; at least moderate lumbar levoscoliosis; multilevel degenerate facet arthropathy; multilevel disc bulging; L3-L4 central canal stenosis, Diffuse osteoporosis. Head CT: No acute intracranial pathology CXR: No acute lung pathology ASSESSMENT/PLAN: 73 year-old female with a PMH significant for schizoaffective disorder, depression,,anxiety,hyperthyroid,dementia, degenerative disc disease, s/p left total hip replacement. Admitted following a fall at home. *s/p fall at home CT Lumabr spine: T11 compression fracture which may be subacute; -ortho consult done, rec no surgical intervention, weight-bearing as tolerated , PT - Pt following *Schizoaffective disorder - seen by PSY Dr. Huynh ,rec to continue bupropion, sertraline, ziprasidone, liothyronine - remains calm -no ativan as it leads to oversedation and respiratory depression *Hypertension- Uncontrolled BP and tachycardia -BP and HR stable now remains stable now - s/p cardizem IVP x2 - will cont on Cardizem 180mg daily -06/02 Echo: mild cLVH; LV normal, EF 55-60%; RV normal; mild TR -cardiology input appreciated *Fungal dermatitis -erythematous papular rash across back -will cont on Nystatin cream BID *Peripheral vascular disease -chronic venous stasis changes -will cont on Aquaphor *Knee abrasions-present on admission - on mupirocin *Prolonged QT interval, < QTC < 500 -on ant-psychotic meds; avoid additional QT prolonging agents -will keep keep K>4, Mg>2 *Severe protein calorie malnutrition -BMI 14.8, severe depletion of subq fat and muscle mass in the orbital, temporal and clavicular regions *Functional quadriplegia -completely dependent for all ADLs, needs to be fed, toileted, positioned * Hypothyroidism - will cont on Cytomel - TSH- WNL *FEN Fluids: PO intake adequate Electrolytes: replete as indicated Nutrition: passed barium swallow exam, regular diet, Ensure, Magic Cup DVT prophylaxis: subq heparin Physical therapy Dispo: continues to require inpatient care. Full code Visit type - Emergency Visit Emergency Visit: Yes ED Registration Date: 05/28/19 Care time: The patient presented to the Emergency Department on the above date and was hospitalized for further evaluation of their emergent condition. - New Patient This patient is new to me today: Yes Date on this admission: 06/04/19 - Critical Care Critical Care patient: No
[2019-06-04] MEDS ORDERED: VANCOMYCIN 1 GM in D5W (PRE-DOCKED) 1,000 MG/250 ML IVPB ONE (19:19)
[2019-06-04] MEDS ORDERED: ACETAMINOPHEN 1000 MG/100 ML VIAL (NON FORMULARY) IVPB PRN (19:21)
[2019-06-04] MEDS ORDERED: SODIUM CHLORIDE 1,000 ML IV SCH (19:30)
[2019-06-04 19:33] LABS: BASO % 0.8 % (0-2.0); HEMOGLOBIN 14.8 GM/dl (10.7-15.3); LYMPH % 5.6 % (8-40); MCH 31.5 pg (25.7-33.7); MCHC 32.1 g/dl (32.0-36.0); MEAN PLT VOLUME 8.1 fl (7.5-11.1); MONO % 3.9 % (3.8-10.2); NEUT % 89.7 % (42.8-82.8); PLATELET COUNT 265 K/MM3 (134-434); RBC 4.69 M/mm3 (3.60-5.2); RDW 14.3 % (11.6-15.6); WHITE BLOOD COUNT 15.1 K/mm3 (4.0-10.8)
[2019-06-04] MEDS ORDERED: MEROPENEM 1 GM in DEXTROSE 5%-WATER 100 ML IVPB SCH (19:45)
[2019-06-04 19:46] LABS: ALBUMIN 4.1 g/dl (3.4-5.0); BILIRUBIN,TOTAL 0.7 mg/dl (0.2-1); CREATININE 0.9 mg/dl (0.55-1.3); MAGNESIUM 2.5 mg/dL (1.8-2.4); TOT PROT 7.2 g/dl (6.4-8.2)
[2019-06-04] MEDS ORDERED: SODIUM CHLORIDE 500 ML IV STA ×2 (19:54→21:20)
[2019-06-04 20:07] LABS: EPITHELIAL CELLS MODERATE /hpf
[2019-06-04] MEDS ORDERED: PIPERACILLIN/TAZOB 2.25 GM 2.25 GM in DEXTROSE 5%-WATER - 50 ML IVPB SCH (21:00)
[2019-06-04] MEDS ORDERED: DEXTROSE 5%-WATER 100 ML IVPB ONE (21:57)
[2019-06-04] MEDS ORDERED: MEROPENEM 1 GM VIAL (RESTRICTED TO ID) IVPB ONE (21:57)
[2019-06-04 22:01] LABS: CALCIUM 9.9 mg/dl (8.5-10); POTASSIUM 4.3 mmol/L (3.5-5.1)
[2019-06-04] MEDS: MEROPENEM 1 GM in DEXTROSE 5%-WATER 100 ML IVPB SCH (22:03)
[2019-06-04] MEDS: SENNOSIDES 8.6MG TABLET (FP) PO SCH (22:04)
[2019-06-04] MEDS: ACETAMINOPHEN 1000 MG/100 ML VIAL (NON FORMULARY) IVPB PRN (23:00)
[2019-06-05] MEDS: ACETAMINOPHEN 1000 MG/100 ML VIAL (NON FORMULARY) IVPB PRN ×2 (06:07→22:49)
[2019-06-05] MEDS ORDERED: DEXTROSE 5%-WATER 100 ML IVPB ONE ×2 (07:11→17:27)
[2019-06-05] MEDS ORDERED: MEROPENEM 1 GM VIAL (RESTRICTED TO ID) IVPB ONE ×2 (07:11→17:27)
--- NOTE | 2019-06-05 07:28 | PN ---
Physical Exam: SUBJECTIVE: Patient seen and examined at bedside. Earlier this morning was visited by nephew and grand niece. Recognized a photo of her brother, said his name. One word answers, mostly "yes." This afternoon not responding to commands. OBJECTIVE: Vital Signs Period Temp Pulse Resp BP Sys/Miller Pulse Ox Last 24 Hr 98.1 F-102.6 F 79-105 18-22 130-150/68-118 90-99 GENERAL: The patient is awake. Answers questions with "yes". Reaching to grab medical devices. No other words. Involuntary movements arms and legs. LUNGS: CTA HEART: Regular rate and rhythm, S1, S2 ABDOMEN: Soft, nontender, nondistended, normoactive bowel sounds EXTREMITIES: 2+ pulses, warm, well-perfused, no edema. NEUROLOGICAL: Cranial nerves II through XII grossly intact. Normal speech, gait not observed. SKIN: Rash on back resolved. Laboratory Results - last 24 hr 06/04/19 06/04/19 06/04/19 19:12 19:12 19:12 WBC 15.1 H RBC 4.69 Hgb 14.8 Hct 46.0 H MCV 98.0 H MCH 31.5 MCHC 32.1 RDW 14.3 Plt Count 265 MPV 8.1 Absolute Neuts (auto) 13.6 Neutrophils % 89.7 H Lymphocytes % 5.6 L Monocytes % 3.9 Eosinophils % 0.0 Basophils % 0.8 Sodium 144 Potassium 4.3 Chloride 108 H Carbon Dioxide 31 Anion Gap 5 L BUN 36.0 H Creatinine 0.9 Est GFR (CKD-EPI)AfAm 73.00 Est GFR (CKD-EPI)NonAf 62.99 Random Glucose 113 H Lactic Acid 2.4 H* Calcium 9.9 Magnesium 2.5 H Total Bilirubin 0.7 AST 23 ALT 21 Alkaline Phosphatase 111 Total Protein 7.2 Albumin 4.1 Urine Color Urine Appearance Urine pH Urine Protein Urine Glucose (UA) Urine Ketones Urine Blood Urine Nitrite Urine Bilirubin Urine Urobilinogen Ur Leukocyte Esterase Urine RBC Urine WBC Ur Transition Epith Cell Urine Bacteria 06/04/19 19:39 WBC RBC Hgb Hct MCV MCH MCHC RDW Plt Count MPV Absolute Neuts (auto) Neutrophils % Lymphocytes % Monocytes % Eosinophils % Basophils % Sodium Potassium Chloride Carbon Dioxide Anion Gap BUN Creatinine Est GFR (CKD-EPI)AfAm Est GFR (CKD-EPI)NonAf Random Glucose Lactic Acid Calcium Magnesium Total Bilirubin AST ALT Alkaline Phosphatase Total Protein Albumin Urine Color Yellow Urine Appearance Cloudy Urine pH 5.5 Urine Protein 1+ H Urine Glucose (UA) Negative Urine Ketones Negative Urine Blood 3+ H Urine Nitrite Positive H Urine Bilirubin Negative Urine Urobilinogen 0.2 Ur Leukocyte Esterase 2+ Urine RBC 10-20 Urine WBC 60-80 Ur Transition Epith Cell Moderate Urine Bacteria Moderate Active Medications Generic Name Dose Route Start Last Admin Trade Name Freq PRN Reason Stop Dose Admin Acetaminophen 750 mg 06/04/19 21:27 06/05/19 06:07 Ofirmev Injection - IVPB 750 mg Q6H PRN Administration FEVER Bacitracin 1 applic 05/29/19 18:45 06/04/19 09:29 Bacitracin - TP 1 applic DAILY VALENCIA Administration Bupropion HCl 300 mg 06/04/19 08:00 06/04/19 07:57 Wellbutrin Xl - PO 300 mg 0800 VALENCIA Administration Diltiazem HCl 180 mg 06/03/19 22:00 06/04/19 22:04 Cardizem Cd - PO 180 mg HS VALENCIA Administration Emollient Ointment 1 applic 05/29/19 22:00 06/04/19 22:03 Aquaphor - TP 1 applic BID VALENCIA Administration Heparin Sodium (Porcine) 5,000 unit 05/29/19 10:00 06/04/19 22:04 Heparin - SQ 5,000 unit BID VALENCIA Administration Sodium Chloride 1,000 mls @ 50 mls/hr 06/04/19 19:30 06/04/19 20:17 Normal Saline - IV 06/05/19 19:19 50 mls/hr ASDIR VALENCIA Administration Meropenem 1 gm/ Dextrose 100 mls @ 100 mls/hr 06/04/19 19:45 IVPB Q12H VALENCIA Meropenem 1 gm/ Dextrose 100 mls @ 200 mls/hr 06/04/19 20:00 06/04/19 22:03 IVPB 06/05/19 08:29 200 mls/hr Q12H VALENCIA Administration Liothyronine Sodium 25 mcg 06/04/19 08:00 06/04/19 07:58 Cytomel - PO 25 mcg DAILY@0800 VALENCIA Administration Mupirocin 1 applic 05/29/19 14:15 06/04/19 09:29 Bactroban 2% Ointment - TP 1 applic DAILY VALENCIA Administration Nystatin 1 applic 05/31/19 22:00 06/04/19 22:04 Mycostatin Cream - TP 1 applic BID VALENCIA Administration Senna 2 tab 05/30/19 22:00 06/04/19 22:04 Senna - PO 2 tab HS VALENCIA Administration Sertraline HCl 100 mg 06/04/19 08:00 06/04/19 07:58 Zoloft - PO 100 mg DAILY@0800 VALENCIA Administration Ziprasidone 20 mg 06/04/19 20:00 06/04/19 20:37 Geodon Injection - IM 20 mg BID VALENCIA Administration ASSESSMENT/PLAN 73 year-old female with a PMH significant for schizoaffective disorder, depression, degenerative disc disease, s/p left total hip replacement. Admitted following a fall at home. Severe sepsis secondary to UTI --yesterday spiked fever to 102, WBC 15.1k, lactic acid 2.4, pyuria --started on meropenem (today day #2) --fluid resuscitated but not to sepsis guidelines due to BMI 13.8, co- morbidities, concern for respiratory distress Schizoaffective disorder --discussed geodon dosing with Dr. Huynh, will increase to 20mg IM q8h --no ativan as it leads to oversedation and respiratory depression --continue bupropion, sertraline, liothyronine Hypertension --continue cardizem CD 180mg daily ++++++++++++++++++++++ Compression fractures, chronic --ortho consult: no surgical intervention, weight-bearing as tolerated, PT Fungal dermatitis, resolved Peripheral vascular disease --chronic venous stasis changes Knee abrasions, improved --present on admission --mupirocin Prolonged QT interval --on anti-psychotic meds; avoid additional QT prolonging agents --keep K>4, Mg>2 Severe protein calorie malnutrition --BMI 14.8, severe depletion of subq fat and muscle mass in the orbital, temporal and clavicular regions Functional quadriplegia --completely dependent for all ADLs, needs to be fed, toileted, positioned FEN Fluids: D51/2@83mL/hr Electrolytes: replete as indicated Nutrition: NPO for now due to mental status DVT prophylaxis: subq heparin Physical therapy Dispo: continues to require inpatient care. Full code Visit type - Emergency Visit Emergency Visit: Yes ED Registration Date: 05/28/19 Care time: The patient presented to the Emergency Department on the above date and was hospitalized for further evaluation of their emergent condition. - New Patient This patient is new to me today: No - Critical Care Critical Care patient: Yes Total Critical Care Time (in minutes): 90 Critical Care Statement: The care of this patient involved high complexity decision making to prevent further life threatening deterioration of the patient 's condition and/or to evaluate & treat vital organ system(s) failure or risk of failure.
[2019-06-05] MEDS: MEROPENEM 1 GM in DEXTROSE 5%-WATER 100 ML IVPB SCH ×2 (07:32→18:00)
[2019-06-05] MEDS: ZIPRASIDONE 20 MG VIAL IM SCH ×3 (07:46→16:52)
[2019-06-05 08:18] LABS: HEMATOCRIT 38.2 % (32.4-45.2); HEMOGLOBIN 12.6 GM/dl (10.7-15.3); MCH 31.9 pg (25.7-33.7); MCHC 32.9 g/dl (32.0-36.0); MEAN CELL VOLUME 97.1 fl (80-96); MEAN PLT VOLUME 8.1 fl (7.5-11.1); PLATELET COUNT 187 K/MM3 (134-434); RBC 3.94 M/mm3 (3.60-5.2); RDW 14.3 % (11.6-15.6); WHITE BLOOD COUNT 11.7 K/mm3 (4.0-10.8)
[2019-06-05 09:12] LABS: ALBUMIN 3.3 g/dl (3.4-5.0); BILIRUBIN,DIRECT 0.2 mg/dL (0.0-0.2); BILIRUBIN,TOTAL 0.7 mg/dL (0.2-1); BLOOD UREA NITROGEN 27.1 mg/dL (7-18); CALCIUM 9.3 mg/dL (8.5-10.1); CREATININE 0.8 mg/dL (0.55-1.3); MAGNESIUM 2.5 mg/dL (1.8-2.4); PHOSPHOROUS 3.2 mg/dL (2.5-4.9); POTASSIUM 3.7 mmol/L (3.5-5.1); TOT PROT 6.6 g/dl (6.4-8.2)
[2019-06-05 09:33] LABS: PLATELET ESTIMATE ADEQUATE
[2019-06-05] MEDS: SERTRALINE HCL 50 MG TABLET (FP) PO SCH (09:57)
[2019-06-05] MEDS: LIOTHYRONINE SODIUM 25 MCG TABLET PO SCH (09:58)
[2019-06-05] MEDS: MINERAL OIL/PET HY-PHL TOPICAL OINTMENT 454 GM JAR TP SCH ×2 (09:58→21:08)
[2019-06-05] MEDS: BACITRACIN 15 GM TUBE TOPICAL OINTMENT TP SCH (09:58)
[2019-06-05] MEDS: NYSTATIN 100,000 UNIT/GM TOPICAL CREAM 15 GM TUBE TP SCH ×2 (09:59→21:07)
[2019-06-05] MEDS: MUPIROCIN 2% TOPICAL OINTMENT 22 GM TUBE TP SCH (09:59)
[2019-06-05] MEDS: HEPARIN NA (PORCINE) 5,000 UNITS/ML 1ML VIAL SQ SCH ×2 (09:59→21:07)
--- NOTE | 2019-06-05 14:41 | PN ---
Progress Note (short form) - Note Progress Note: s: alert, not responding to questions. Current Medications Acetaminophen (Ofirmev Injection -) 750 mg IVPB Q6H PRN PRN Reason: FEVER Last Admin: 06/05/19 06:07 Dose: 750 mg Bacitracin (Bacitracin -) 1 applic TP DAILY VALENCIA Last Admin: 06/05/19 09:58 Dose: 1 applic Bupropion HCl (Wellbutrin Xl -) 300 mg PO 0800 [facility] Last Admin: 06/05/19 09:58 Dose: 300 mg Diltiazem HCl (Cardizem Cd -) 180 mg PO HS VALENCIA Last Admin: 06/04/19 22:04 Dose: 180 mg Emollient Ointment (Aquaphor -) 1 applic TP BID [facility] Last Admin: 06/05/19 09:58 Dose: 1 applic Heparin Sodium (Porcine) (Heparin -) 5,000 unit SQ BID [facility] Last Admin: 06/05/19 09:59 Dose: 5,000 unit Sodium Chloride (Normal Saline -) 1,000 mls @ 50 mls/hr IV ASDIR VALENCIA Stop: 06/05/19 19:19 Last Admin: 06/04/19 20:17 Dose: 50 mls/hr Meropenem 1 gm/ Dextrose 100 mls @ 100 mls/hr IVPB Q12H [facility] Liothyronine Sodium (Cytomel -) 25 mcg PO DAILY@0800 [facility] Last Admin: 06/05/19 09:58 Dose: 25 mcg Mupirocin (Bactroban 2% Ointment -) 1 applic TP DAILY [facility] Last Admin: 06/05/19 09:59 Dose: 1 applic Nystatin (Mycostatin Cream -) 1 applic TP BID [facility] Last Admin: 06/05/19 09:59 Dose: 1 applic Senna (Senna -) 2 tab PO HS [facility] Last Admin: 06/04/19 22:04 Dose: 2 tab Sertraline HCl (Zoloft -) 100 mg PO DAILY@0800 [facility] Last Admin: 06/05/19 09:57 Dose: 100 mg Ziprasidone (Geodon Injection -) 20 mg IM Q8H [facility] Vital Signs Period Temp Pulse Resp BP Sys/Miller Pulse Ox Last 24 Hr 98.6 F-102.6 F 79-105 18-22 130-150/69-118 90-98 nad no jvd rrr s1s2 no mrg cta bl nl eff awake alert no le e/c/c abd nt nd pos bs no jaundice diaphoresis abd nt nd pos bs echo 05/2019: mild lvh, nl lvef, nl rv, mild tr, nl rvsp cxr: clear lungs ecg: sr nl intervals no ischemic changes tele: sr, artifact a/p: 73 f hx hyperthyroid,dementia, depression, anxiety here s/p fall. fever, UTI - abx per primary fall: -seems mechanical -echo and tele benign -pt/rehab eval htn: -no known hx htn but having episodes of htn here. Possibly related to episodes of agitation and withdrawal from ativan. - cardizem started - increased to 180 mg daily with improved BP, continue sinus tachy: -likely related to psych issues and psych med adjustments as well as fever -ecg, tsh, tele benign -cont tele for now
--- NOTE | 2019-06-05 16:09 | CON.ID ---
Consult Consult Specialty:: infectious diseases Referred by:: Peg Reason for Consultation:: sepsis,fever - History of Present Illness Chief Complaint: fever History of Present Illness: patient is demented,failure to thrive.History obtained from the charts 73 year old female with a significant PMH of hyperthyroid, anxiety and depression , s/p fall As per patient, she was opening her blinds, tripped, leaned against her bed and slid onto the floor. Patient states she fell onto her buttock. Patient then developed lower back pain radiating to lower legs. Patient did not take any medication for pain. Patient denies head injury. Denies loss of consciousness. Denies any other symptoms. this was the history obtained from the charts seems patients mental status was better and now patient is awake but non responsive and not answering any questions patient started spiking high grade fevers and i was called to evaluate the patient - History Source History Provided By: Medical Record Limitations to Obtaining History: Clinical Condition - Past Medical History [employer]: Yes: Other (Schizo-affective disorder ) Gastrointestinal: Yes: GERD Psych: Yes: Anxiety, Bipolar, Depression Endocrine: Yes: Hypothyroidism Dermatology: Yes: Other (b/l LE scabbing, no erythema, no edema, no ope wound, no signs of infection) - Past Surgical History Past Surgical History: Yes: None - Alcohol/Substance Use Hx Alcohol Use: No - Smoking History Smoking history: Never smoked Have you smoked in the past 12 months: No - Social History Usual Living Arrangement: Alone History of Recent Travel: No Home Medications - Allergies Allergies/Adverse Reactions: Allergies Allergy/AdvReac Type Severity Reaction Status Date / Time erythromycin base Allergy Severe Verified 05/29/19 16:36 Penicillins Allergy Severe Rash Verified 05/29/19 16:37 lorazepam [From Ativan] AdvReac Difficulty Verified 06/02/19 16:01 Breathing - Home Medications Home Medications: Ambulatory Orders Bupropion HCl [Bupropion Xl] 300 mg PO DAILY 05/28/19 LORazepam [Ativan] 0.5 mg PO QID 05/28/19 Liothyronine Sodium 25 mcg PO DAILY 05/28/19 Omeprazole 40 mg PO DAILY 05/28/19 Sertraline HCl 200 mg PO DAILY 05/28/19 Ziprasidone HCl 80 mg PO DAILY 05/28/19 Review of Systems Unable to obtain ROS, reason: unable to obtain Physical Exam Vital Signs: Vital Signs Temperature 99.1 F 06/05/19 10:00 Pulse Rate 105 H 06/05/19 05:00 Respiratory Rate 19 06/05/19 05:00 Blood Pressure 130/80 06/05/19 05:00 O2 Sat by Pulse Oximetry (%) 93 L 06/05/19 08:20 Constitutional: Yes: Other (failure to thrive) Eyes: Yes: Conjunctiva Clear Cardiovascular: Yes: Regular Rate and Rhythm Respiratory: Yes: Regular, Poor Air Entry Gastrointestinal: Yes: Normal Bowel Sounds, Soft Musculoskeletal: Yes: WNL Extremities: Yes: WNL Neurological: Yes: Other (non responsive ,non verbal) Labs: CBC, BMP 06/05/19 06:40 06/05/19 06:40 Imaging - Results Chest X-ray: Report Reviewed, Image Reviewed Cat Scan: Report Reviewed, Image Reviewed Assessment/Plan 73 year-old female with a PMH significant for schizoaffective disorder, depression, degenerative disc disease, s/p left total hip replacement. Admitted following a fall at home. the exact course of fevers unknown.patients oral cavity is bad.I am worried if patient has uti or is having silent aspiration i agree with the patient starting on meropenam would consider keeping the patient npo hydration rest as per the team await for all cx reports
[2019-06-05] MEDS ORDERED: IBUPROFEN 800 MG/8 ML IJ IVPB ONE (16:28)
[2019-06-05] MEDS ORDERED: DEXTROSE 5%-0.45% SALINE 1,000 ML IV SCH (17:00)
[2019-06-05] MEDS: SENNOSIDES 8.6MG TABLET (FP) PO SCH (21:08)
[2019-06-06] MEDS: ZIPRASIDONE 20 MG VIAL IM SCH ×3 (00:34→15:50)
[2019-06-06] MEDS ORDERED: DEXTROSE 5%-WATER 100 ML IVPB ONE ×3 (01:17→18:01)
[2019-06-06] MEDS ORDERED: MEROPENEM 1 GM VIAL (RESTRICTED TO ID) IVPB ONE ×3 (01:17→18:02)
[2019-06-06] MEDS: MEROPENEM 1 GM in DEXTROSE 5%-WATER 100 ML IVPB SCH ×3 (01:32→18:31)
--- NOTE | 2019-06-06 06:33 | PN ---
Physical Exam: SUBJECTIVE: Patient seen and examined at bedside. . RN at bedside administering morning meds. OBJECTIVE: Vital Signs Period Temp Pulse Resp BP Sys/Miller Pulse Ox Last 24 Hr 99.1 F-103.4 F 67-102 17-19 140-152/64-101 93-94 GENERAL: The patient is awake. Nonverbal, tense, flexed extremities, pulling at devices LUNGS: CTA HEART: Regular rate and rhythm, S1, S2 ABDOMEN: Soft, nontender, nondistended, normoactive bowel sounds EXTREMITIES: 2+ pulses, warm, well-perfused, no edema. NEUROLOGICAL: Cranial nerves II through XII grossly intact. Normal speech, gait not observed. SKIN: Rash on back slightly worse today Laboratory Results - last 24 hr 06/05/19 06/05/19 06/05/19 06:40 06:40 06:40 WBC 11.7 H RBC 3.94 Hgb 12.6 Hct 38.2 D MCV 97.1 H MCH 31.9 MCHC 32.9 RDW 14.3 Plt Count 187 MPV 8.1 Absolute Neuts (auto) 10.6 Neutrophils % No Result Required. Neutrophils % (Manual) 93.0 H* Lymphocytes % No Result Required. Lymphocytes % (Manual) 5.0 L Monocytes % (Manual) 2 L Platelet Estimate Adequate Sodium 146 H Potassium 3.7 Chloride 111 H Carbon Dioxide 31 Anion Gap 4 L BUN 27.1 H Creatinine 0.8 Est GFR (CKD-EPI)AfAm 84.18 Est GFR (CKD-EPI)NonAf 72.63 Random Glucose 95 Lactic Acid 1.0 Calcium 9.3 Phosphorus 3.2 Magnesium 2.5 H Total Bilirubin 0.7 Direct Bilirubin 0.2 AST 16 ALT 22 Alkaline Phosphatase 120 H Total Protein 6.6 Albumin 3.3 L Urine Osmolality Ur Random Creatinine Ur Random Sodium 06/05/19 06/05/19 06/05/19 12:30 12:30 12:30 WBC RBC Hgb Hct MCV MCH MCHC RDW Plt Count MPV Absolute Neuts (auto) Neutrophils % Neutrophils % (Manual) Lymphocytes % Lymphocytes % (Manual) Monocytes % (Manual) Platelet Estimate Sodium Potassium Chloride Carbon Dioxide Anion Gap BUN Creatinine Est GFR (CKD-EPI)AfAm Est GFR (CKD-EPI)NonAf Random Glucose Lactic Acid Calcium Phosphorus Magnesium Total Bilirubin Direct Bilirubin AST ALT Alkaline Phosphatase Total Protein Albumin Urine Osmolality 628 Ur Random Creatinine 44.0 Ur Random Sodium 112 Active Medications Generic Name Dose Route Start Last Admin Trade Name Freq PRN Reason Stop Dose Admin Acetaminophen 750 mg 06/04/19 21:27 06/05/19 22:49 Ofirmev Injection - IVPB 750 mg Q6H PRN Administration FEVER Bacitracin 1 applic 05/29/19 18:45 06/05/19 09:58 Bacitracin - TP 1 applic DAILY VALENCIA Administration Bupropion HCl 300 mg 06/04/19 08:00 06/05/19 09:58 Wellbutrin Xl - PO 300 mg 0800 VALENCIA Administration Diltiazem HCl 180 mg 06/03/19 22:00 06/05/19 20:18 Cardizem Cd - PO 180 mg HS VALENCIA Administration Emollient Ointment 1 applic 05/29/19 22:00 06/05/19 21:08 Aquaphor - TP 1 applic BID VALENCIA Administration Heparin Sodium (Porcine) 5,000 unit 05/29/19 10:00 06/05/19 21:07 Heparin - SQ 5,000 unit BID VALENCIA Administration Meropenem 1 gm/ Dextrose 100 mls @ 200 mls/hr 06/05/19 18:00 06/06/19 01:32 IVPB 200 mls/hr Q8H-IV VALENCIA Administration Dextrose/Sodium Chloride 1,000 mls @ 83 mls/hr 06/05/19 17:00 06/05/19 17:41 D5-1/2ns - IV 83 mls/hr ASDIR VALENCIA Administration Liothyronine Sodium 25 mcg 06/04/19 08:00 06/05/19 09:58 Cytomel - PO 25 mcg DAILY@0800 VALENCIA Administration Mupirocin 1 applic 05/29/19 14:15 06/05/19 09:59 Bactroban 2% Ointment - TP 1 applic DAILY VALENCIA Administration Nystatin 1 applic 05/31/19 22:00 06/05/19 21:07 Mycostatin Cream - TP 1 applic BID VALENCIA Administration Senna 2 tab 05/30/19 22:00 06/05/19 21:08 Senna - PO 2 tab HS VALENCIA Administration Sertraline HCl 100 mg 06/04/19 08:00 06/05/19 09:57 Zoloft - PO 100 mg DAILY@0800 VALENCIA Administration Ziprasidone 20 mg 06/05/19 16:00 06/06/19 00:34 Geodon Injection - IM 20 mg Q8H VALENCIA Administration Microbiology 06/04/19 19:39 Urine - Urine - Catheterized Urine Culture - Preliminary Lactose Fermenting Neg Bacilli 06/04/19 19:17 Blood - Peripheral Venous Blood Culture - Preliminary NO GROWTH OBTAINED AFTER 24 HOURS, INCUBATION TO CONTINUE FOR 4 DAYS. 06/04/19 19:12 Blood - Peripheral Venous Blood Culture - Preliminary NO GROWTH OBTAINED AFTER 24 HOURS, INCUBATION TO CONTINUE FOR 4 DAYS. 06/01/19 19:00 Urine - Urine - Catheterized Urine Culture - Final NO GROWTH OBTAINED ASSESSMENT/PLAN: 73 year-old female with a PMH significant for schizoaffective disorder, depression, degenerative disc disease, s/p left total hip replacement. Admitted following a fall at home. Severe sepsis secondary to LFGNB UTI --Tm 102.7, Tc 100.1, leukocytosis resolved --continue meropenem (day #3) Schizoaffective disorder --episodes of agitation, muscle rigidity, non purposeful movements are decreased on the increased dose of geodon; but periods of somnolence are longer --no ativan as it leads to oversedation and respiratory depression --continue bupropion, sertraline, liothyronine Hypertension --continue cardizem CD 180mg daily Hypokalemia --replete Compression fractures, chronic --ortho consult: no surgical intervention, weight-bearing as tolerated, PT Fungal dermatitis --Nystatin cream Peripheral vascular disease --chronic venous stasis changes Knee abrasions, improved --present on admission --mupirocin Prolonged QT interval --on anti-psychotic meds; avoid additional QT prolonging agents --keep K>4, Mg>2 Severe protein calorie malnutrition --BMI 14.8, severe depletion of subq fat and muscle mass in the orbital, temporal and clavicular regions --starting tube feeds Functional quadriplegia --completely dependent for all ADLs, needs to be fed, toileted, positioned FEN Fluids: D51/2+40K@83mL/hr Electrolytes: replete as indicated Nutrition: Jevity 1.5, goal 45mL/hr DVT prophylaxis: subq heparin Physical therapy Dispo: continues to require inpatient care. Full code Visit type - Emergency Visit Emergency Visit: Yes ED Registration Date: 05/28/19 Care time: The patient presented to the Emergency Department on the above date and was hospitalized for further evaluation of their emergent condition. - New Patient This patient is new to me today: No - Critical Care Critical Care patient: No
[2019-06-06 09:00] LABS: BASO % 1.5 % (0-2.0); EOS % 0.1 % (0-4.5); HEMATOCRIT 39.3 % (32.4-45.2); HEMOGLOBIN 12.7 GM/dl (10.7-15.3); LYMPH % 10.1 % (8-40); MCH 31.9 pg (25.7-33.7); MCHC 32.3 g/dl (32.0-36.0); MEAN CELL VOLUME 98.8 fl (80-96); MEAN PLT VOLUME 8.8 fl (7.5-11.1); MONO % 5.3 % (3.8-10.2); PLATELET COUNT 147 K/MM3 (134-434); RBC 3.98 M/mm3 (3.60-5.2); RDW 14.6 % (11.6-15.6); WHITE BLOOD COUNT 8.8 K/mm3 (4.0-10.8)
[2019-06-06 09:17] LABS: ALBUMIN 3.5 g/dl (3.4-5.0); BILIRUBIN,TOTAL 0.6 mg/dl (0.2-1); CALCIUM 8.8 mg/dl (8.5-10); CREATININE 0.7 mg/dl (0.55-1.3); MAGNESIUM 2.3 mg/dL (1.8-2.4); TOT PROT 6.3 g/dl (6.4-8.2)
[2019-06-06] MEDS: MINERAL OIL/PET HY-PHL TOPICAL OINTMENT 454 GM JAR TP SCH ×2 (09:30→22:10)
[2019-06-06] MEDS: BACITRACIN 15 GM TUBE TOPICAL OINTMENT TP SCH (10:00)
[2019-06-06] MEDS: NYSTATIN 100,000 UNIT/GM TOPICAL CREAM 15 GM TUBE TP SCH ×2 (10:00→22:10)
[2019-06-06] MEDS: LIOTHYRONINE SODIUM 25 MCG TABLET PO SCH (10:30)
[2019-06-06] MEDS ORDERED: D5-1/2NS+40 MEQ KCL - 40 MEQ/1,000 ML INFUS.BAG IV SCH (10:30)
[2019-06-06] MEDS: SERTRALINE HCL 50 MG TABLET (FP) PO SCH (10:31)
[2019-06-06] MEDS: HEPARIN NA (PORCINE) 5,000 UNITS/ML 1ML VIAL SQ SCH ×2 (10:31→22:10)
[2019-06-06] MEDS: KCL 10 MEQ IVPB 10 MEQ/100 ML INFUS.BAG IVPB SCH ×3 (12:08→14:11)
[2019-06-06] MEDS: MUPIROCIN 2% TOPICAL OINTMENT 22 GM TUBE TP SCH (13:02)
--- NOTE | 2019-06-06 13:20 | PN ---
Progress Note, Physician Chief Complaint: eyes open Able to answer yes/no Denies CP, SOB, palps. TELE: NSR, artifact. Receiving K+ supplement - Current Medication List Current Medications: Active Medications Acetaminophen (Ofirmev Injection -) 750 mg IVPB Q6H PRN PRN Reason: FEVER Last Admin: 06/05/19 22:49 Dose: 750 mg Bacitracin (Bacitracin -) 1 applic TP DAILY [facility] Last Admin: 06/06/19 10:00 Dose: 1 applic Bupropion HCl (Wellbutrin Xl -) 300 mg PO 0800 [facility] Last Admin: 06/06/19 10:31 Dose: 300 mg Diltiazem HCl (Cardizem Cd -) 180 mg PO HS [facility] Last Admin: 06/05/19 20:18 Dose: 180 mg Emollient Ointment (Aquaphor -) 1 applic TP BID [facility] Last Admin: 06/06/19 09:30 Dose: 1 applic Heparin Sodium (Porcine) (Heparin -) 5,000 unit SQ BID [facility] Last Admin: 06/06/19 10:31 Dose: 5,000 unit Meropenem 1 gm/ Dextrose 100 mls @ 200 mls/hr IVPB Q8H-IV [facility] Last Admin: 06/06/19 10:32 Dose: 200 mls/hr Potassium Chloride (Potassium Chloride 10 Meq Premix Ivpb -) 10 meq in 100 mls @ 100 mls/hr IVPB Q60M [facility] Stop: 06/06/19 13:29 Last Admin: 06/06/19 13:05 Dose: 100 mls/hr Dextrose/Sodium Chloride (D5-1/2ns+40 Meq Kcl -) 40 meq in 1,000 mls @ 83 mls/ hr IV ASDIR [facility] Stop: 06/06/19 22:33 Last Admin: 06/06/19 12:07 Dose: 83 mls/hr Liothyronine Sodium (Cytomel -) 25 mcg PO DAILY@0800 [facility] Last Admin: 06/06/19 10:30 Dose: 25 mcg Mupirocin (Bactroban 2% Ointment -) 1 applic TP DAILY [facility] Last Admin: 06/06/19 13:02 Dose: 1 applic Nystatin (Mycostatin Cream -) 1 applic TP BID [facility] Last Admin: 06/06/19 10:00 Dose: 1 applic Senna (Senna -) 2 tab PO HS [facility] Last Admin: 06/05/19 21:08 Dose: 2 tab Sertraline HCl (Zoloft -) 100 mg PO DAILY@0800 [facility] Last Admin: 06/06/19 10:31 Dose: 100 mg Ziprasidone (Geodon Injection -) 20 mg IM Q8H [facility] Last Admin: 06/06/19 10:30 Dose: 20 mg - Objective Vital Signs: Vital Signs Temperature 99.1 F 06/06/19 05:42 Pulse Rate 76 06/06/19 05:42 Respiratory Rate 17 06/06/19 05:42 Blood Pressure 151/91 06/06/19 05:42 O2 Sat by Pulse Oximetry (%) 94 L 06/06/19 05:43 Constitutional: Yes: No Distress, Thin Eyes: Yes: Conjunctiva Clear Cardiovascular: Yes: Regular Rate and Rhythm Respiratory: Yes: CTA Bilaterally Gastrointestinal: Yes: Soft (NT) Edema: No Neurological: Yes: Alert Labs: CBC, BMP 06/06/19 08:18 06/06/19 08:18 Microbiology 06/01/19 19:00 Urine - Urine - Catheterized Urine Culture - Final NO GROWTH OBTAINED 06/04/19 19:39 Urine - Urine - Catheterized Urine Culture - Preliminary Lactose Fermenting Neg Bacilli 06/04/19 19:12 Blood - Peripheral Venous Blood Culture - Preliminary NO GROWTH OBTAINED AFTER 24 HOURS, INCUBATION TO CONTINUE FOR 4 DAYS. Laboratory Tests 06/06/19 06/06/19 08:18 08:18 WBC 8.8 Hgb 12.7 Plt Count 147 Sodium 144 Potassium 3.0 L Creatinine 0.7 - ....Imaging EKG: Image Reviewed Assessment/Plan echo 05/2019: mild lvh, nl lvef, nl rv, mild tr, nl rvsp cxr: clear lungs ecg: sr nl intervals no ischemic changes tele: sr, artifact a/p: 73 f hx hyperthyroid,dementia, depression, anxiety here s/p fall with UTI. fever, UTI: - abx per primary, f/u cultures fall: -seems mechanical -echo and tele benign -pt/rehab eval htn: -no known hx htn but having episodes of htn here. Possibly related to episodes of agitation and withdrawal from ativan. - cardizem titrated yesterday- overall BP trend improved and now near goal 150/ 90 (for age) sinus tachy: -likely related to psych issues and psych med adjustments as well as fever- also improved. -ecg, tsh, tele benign -can d/c tele as there are no sig arrhythmias and sinus tach has improved.
[2019-06-06] MEDS: SENNOSIDES 8.6MG TABLET (FP) PO SCH (22:09)
[2019-06-07] MEDS: ZIPRASIDONE 20 MG VIAL IM SCH ×3 (00:05→16:38)
[2019-06-07] MEDS: ACETAMINOPHEN 1000 MG/100 ML VIAL (NON FORMULARY) IVPB PRN ×3 (00:20→22:07)
[2019-06-07] MEDS: MEROPENEM 1 GM in DEXTROSE 5%-WATER 100 ML IVPB SCH ×3 (03:17→22:06)
[2019-06-07 08:07] LABS: HEMATOCRIT 42.4 % (32.4-45.2); HEMOGLOBIN 13.8 GM/dl (10.7-15.3); MCH 31.8 pg (25.7-33.7); MCHC 32.5 g/dl (32.0-36.0); MEAN CELL VOLUME 97.6 fl (80-96); MEAN PLT VOLUME 8.1 fl (7.5-11.1); PLATELET COUNT 207 K/MM3 (134-434); RBC 4.34 M/mm3 (3.60-5.2); RDW 14.8 % (11.6-15.6)
--- NOTE | 2019-06-07 08:10 | PN ---
Physical Exam: SUBJECTIVE: Patient seen and examined at bedside. OBJECTIVE: Vital Signs Period Temp Pulse Resp BP Sys/Miller Pulse Ox Last 24 Hr 99.6 F-101.6 F 73-112 20-20 131-160/44-104 97-98 GENERAL/Neuro: The patient is awake. Answers "yes" to every question. Tracks with eyes. Follows commands. Shown picture of brother, said "[place]." LUNGS: CTA HEART: Regular rate and rhythm, S1, S2 ABDOMEN: Soft, nontender, nondistended, normoactive bowel sounds EXTREMITIES: 2+ pulses, warm, well-perfused, no edema. NEUROLOGICAL: Cranial nerves II through XII grossly intact. Normal speech, gait not observed. SKIN: maculopapular rash on back Laboratory Results - last 24 hr 06/06/19 06/06/19 06/06/19 06:00 06:00 08:18 WBC 8.8 RBC 3.98 Hgb 12.7 Hct 39.3 MCV 98.8 H MCH 31.9 MCHC 32.3 RDW 14.6 Plt Count 147 MPV 8.8 Absolute Neuts (auto) 7.3 Neutrophils % 83.0 H Lymphocytes % 10.1 Monocytes % 5.3 Eosinophils % 0.1 Basophils % 1.5 Sodium Potassium Chloride Carbon Dioxide Anion Gap BUN Creatinine Est GFR (CKD-EPI)AfAm Est GFR (CKD-EPI)NonAf Random Glucose Calcium Magnesium Total Bilirubin AST ALT Alkaline Phosphatase Total Protein Albumin TSH 0.54 Free T4 0.66 L Free T3 1.6 L 06/06/19 08:18 WBC RBC Hgb Hct MCV MCH MCHC RDW Plt Count MPV Absolute Neuts (auto) Neutrophils % Lymphocytes % Monocytes % Eosinophils % Basophils % Sodium 144 Potassium 3.0 L Chloride 111 H Carbon Dioxide 27 Anion Gap 6 L BUN 28.0 H Creatinine 0.7 Est GFR (CKD-EPI)AfAm 98.92 Est GFR (CKD-EPI)NonAf 85.35 Random Glucose 99 Calcium 8.8 Magnesium 2.3 Total Bilirubin 0.6 AST 41 H ALT 24 Alkaline Phosphatase 87 D Total Protein 6.3 L Albumin 3.5 TSH Free T4 Free T3 Active Medications Generic Name Dose Route Start Last Admin Trade Name Freq PRN Reason Stop Dose Admin Bacitracin 1 applic 05/29/19 18:45 06/06/19 10:00 Bacitracin - TP 1 applic DAILY [facility] Administration Bupropion HCl 300 mg 06/04/19 08:00 06/06/19 10:31 Wellbutrin Xl - PO 300 mg 0800 [facility] Administration Diltiazem HCl 180 mg 06/03/19 22:00 06/06/19 22:09 Cardizem Cd - PO 180 mg HS [facility] Administration Emollient Ointment 1 applic 05/29/19 22:00 06/06/19 22:10 Aquaphor - TP 1 applic BID [facility] Administration Heparin Sodium (Porcine) 5,000 unit 05/29/19 10:00 06/06/19 22:10 Heparin - SQ 5,000 unit BID [facility] Administration Meropenem 1 gm/ Dextrose 100 mls @ 200 mls/hr 06/05/19 18:00 06/07/19 03:17 IVPB 200 mls/hr Q8H-IV [facility] Administration Liothyronine Sodium 25 mcg 06/04/19 08:00 06/06/19 10:30 Cytomel - PO 25 mcg DAILY@0800 [facility] Administration Mupirocin 1 applic 05/29/19 14:15 06/06/19 13:02 Bactroban 2% Ointment - TP 1 applic DAILY [facility] Administration Nystatin 1 applic 05/31/19 22:00 06/06/19 22:10 Mycostatin Cream - TP 1 applic BID [facility] Administration Senna 2 tab 05/30/19 22:00 06/06/19 22:09 Senna - PO 2 tab HS [facility] Administration Sertraline HCl 100 mg 06/04/19 08:00 06/06/19 10:31 Zoloft - PO 100 mg DAILY@0800 [facility] Administration Ziprasidone 20 mg 06/05/19 16:00 06/07/19 00:05 Geodon Injection - IM 20 mg Q8H [facility] Administration ASSESSMENT/PLAN Microbiology 06/04/19 19:39 Urine - Urine - Catheterized Urine Culture - Preliminary Lactose Fermenting Neg Bacilli 06/04/19 19:17 Blood - Peripheral Venous Blood Culture - Preliminary NO GROWTH OBTAINED AFTER 24 HOURS, INCUBATION TO CONTINUE FOR 4 DAYS. 06/04/19 19:12 Blood - Peripheral Venous Blood Culture - Preliminary NO GROWTH OBTAINED AFTER 24 HOURS, INCUBATION TO CONTINUE FOR 4 DAYS. 06/01/19 19:00 Urine - Urine - Catheterized Urine Culture - Final NO GROWTH OBTAINED ASSESSMENT/PLAN: 73 year-old female with a PMH significant for schizoaffective disorder, depression, degenerative disc disease, s/p left total hip replacement. Admitted following a fall at home. Severe sepsis secondary to E.coli UTI --continues to spike fevers, WBC spike to 20k today --discussed with Dr. Izaguirre, dose vanco 1.25g for possible aspiration event? CXR clear today; wallis culture again today --continue meropenem (day #4) Schizoaffective disorder --episodes of agitation, muscle rigidity, non purposeful movements are decreased on the increased dose of geodon; but periods of somnolence are longer --NO ATIVAN as it leads to oversedation and respiratory depression --continue bupropion, sertraline, liothyronine --daily discussions with Dr. Huynh, he will see patient today Hypertension --continue cardizem CD 180mg daily --OK to d/c tele --cardiology following Hypokalemia --replete Compression fractures, chronic --ortho consult: no surgical intervention, weight-bearing as tolerated, PT Fungal dermatitis --Nystatin cream Peripheral vascular disease --chronic venous stasis changes Knee abrasions, improved --present on admission --mupirocin Prolonged QT interval --on anti-psychotic meds; avoid additional QT prolonging agents --keep K>4, Mg>2 Severe protein calorie malnutrition --BMI 14.8, severe depletion of subq fat and muscle mass in the orbital, temporal and clavicular regions --starting tube feeds Functional quadriplegia --completely dependent for all ADLs, needs to be fed, toileted, positioned FEN Fluids: D51/2@50mL/hr Electrolytes: replete as indicated Nutrition: patient has had a barium swallow, has no difficulty swallowing and when she is awake, she has a very good appetite; when she is more somnolent , or if she is her meals are not supervised, she falls behind on calories; dietary has calculated her tube feeds needs but have deferred starting tube feeds until now; may eventually need a PEG but that issue will have to be addressed with the family and the health care proxy Claudia Manley DVT prophylaxis: subq heparin Physical therapy Dispo: continues to require inpatient care. Full code Visit type - Emergency Visit Emergency Visit: Yes ED Registration Date: 05/28/19 Care time: The patient presented to the Emergency Department on the above date and was hospitalized for further evaluation of their emergent condition. - New Patient This patient is new to me today: No - Critical Care Critical Care patient: No
[2019-06-07 08:11] LABS: ALBUMIN 3.4 g/dl (3.4-5.0); BILIRUBIN,TOTAL 0.6 mg/dl (0.2-1); CALCIUM 8.9 mg/dl (8.5-10); CREATININE 0.7 mg/dl (0.55-1.3); MAGNESIUM 2.2 mg/dL (1.8-2.4); POTASSIUM 3.6 mmol/L (3.5-5.1); TOT PROT 6.3 g/dl (6.4-8.2)
[2019-06-07 08:16] LABS: ADD RBC MORPHOLOGY YES
[2019-06-07] MEDS: LIOTHYRONINE SODIUM 25 MCG TABLET PO SCH (08:34)
[2019-06-07] MEDS: SERTRALINE HCL 50 MG TABLET (FP) PO SCH (08:34)
[2019-06-07] MEDS ORDERED: VANCOMYCIN HCL 1,250 MG in DEXTROSE 5%-WATER - 250 ML IVPB ONE (09:00)
[2019-06-07] MEDS ORDERED: DEXTROSE 5%-WATER 100 ML IVPB ONE ×2 (09:37→22:03)
[2019-06-07] MEDS ORDERED: MEROPENEM 1 GM VIAL (RESTRICTED TO ID) IVPB ONE ×2 (09:37→22:04)
[2019-06-07] MEDS: BACITRACIN 15 GM TUBE TOPICAL OINTMENT TP SCH (09:54)
[2019-06-07] MEDS: MUPIROCIN 2% TOPICAL OINTMENT 22 GM TUBE TP SCH (09:54)
[2019-06-07] MEDS: MINERAL OIL/PET HY-PHL TOPICAL OINTMENT 454 GM JAR TP SCH ×2 (09:54→22:06)
[2019-06-07] MEDS: NYSTATIN 100,000 UNIT/GM TOPICAL CREAM 15 GM TUBE TP SCH ×2 (09:55→22:06)
[2019-06-07 10:09] LABS: ANISOCYTOSIS 1+; PLATELET ESTIMATE ADEQUATE
[2019-06-07] MEDS: HEPARIN NA (PORCINE) 5,000 UNITS/ML 1ML VIAL SQ SCH ×2 (10:30→22:06)
[2019-06-07] MEDS ORDERED: ACETAMINOPHEN 1000 MG/100 ML VIAL (NON FORMULARY) IVPB PRN (10:31)
[2019-06-07] MEDS: DEXTROSE 5%-0.45% SALINE 1,000 ML IV SCH (14:27)
--- NOTE | 2019-06-07 14:45 | PN ---
Progress Note, Physician History of Present Illness: patient spiking fevers wbc has jumped up - Current Medication List Current Medications: Active Medications Acetaminophen (Ofirmev Injection -) 500 mg IVPB Q6H PRN PRN Reason: FEVER Last Admin: 06/07/19 14:26 Dose: 500 mg Bacitracin (Bacitracin -) 1 applic TP DAILY [facility] Last Admin: 06/07/19 09:54 Dose: 1 applic Bupropion HCl (Wellbutrin Xl -) 300 mg PO 0800 [facility] Last Admin: 06/07/19 08:34 Dose: 300 mg Diltiazem HCl (Cardizem Cd -) 180 mg PO HS [facility] Last Admin: 06/06/19 22:09 Dose: 180 mg Emollient Ointment (Aquaphor -) 1 applic TP BID [facility] Last Admin: 06/07/19 09:54 Dose: 1 applic Heparin Sodium (Porcine) (Heparin -) 5,000 unit SQ BID [facility] Last Admin: 06/07/19 10:30 Dose: 5,000 unit Meropenem 1 gm/ Dextrose 100 mls @ 200 mls/hr IVPB Q12H [facility] Dextrose/Sodium Chloride (D5-1/2ns -) 1,000 mls @ 50 mls/hr IV ASDIR [facility] Last Admin: 06/07/19 14:27 Dose: 50 mls/hr Liothyronine Sodium (Cytomel -) 25 mcg PO DAILY@0800 [facility] Last Admin: 06/07/19 08:34 Dose: 25 mcg Mupirocin (Bactroban 2% Ointment -) 1 applic TP DAILY [facility] Last Admin: 06/07/19 09:54 Dose: 1 applic Nystatin (Mycostatin Cream -) 1 applic TP BID [facility] Last Admin: 06/07/19 09:55 Dose: 1 applic Senna (Senna -) 2 tab PO HS [facility] Last Admin: 06/06/19 22:09 Dose: 2 tab Sertraline HCl (Zoloft -) 100 mg PO DAILY@0800 [facility] Last Admin: 06/07/19 08:34 Dose: 100 mg Ziprasidone (Geodon Injection -) 20 mg IM Q8H [facility] Last Admin: 06/07/19 08:35 Dose: 20 mg - Objective Vital Signs: Vital Signs Temperature 101.8 F H 06/07/19 14:00 Pulse Rate 111 H 06/07/19 10:00 Respiratory Rate 06/07/19 14:00 Blood Pressure 148/95 06/07/19 14:00 O2 Sat by Pulse Oximetry (%) 97 06/07/19 14:00 Constitutional: Yes: Calm, Mild Distress Cardiovascular: Yes: S1, S2 Respiratory: Yes: Regular, Poor Air Entry (bases) Gastrointestinal: Yes: Soft, Hypoactive Bowel Sounds Musculoskeletal: Yes: WNL Extremities: Yes: Other Neurological: Yes: Alert, Other Psychiatric: Yes: Other Labs: CBC, BMP 06/07/19 07:22 06/07/19 07:22 Assessment/Plan 73 year-old female with a PMH significant for schizoaffective disorder, depression, degenerative disc disease, s/p left total hip replacement. Admitted following a fall at home. fever uti weakness plan repeat cbc ct of the chest abd labs await for repeat cx reports will decide on further plan once we have all that
--- NOTE | 2019-06-07 15:40 | PN ---
Progress Note (short form) - Note Progress Note: s: no cp sob palps dizzy Current Medications Generic Name Dose Route Start Last Admin Trade Name Freq PRN Reason Stop Dose Admin Acetaminophen 500 mg 06/07/19 10:56 06/07/19 14:26 Ofirmev Injection - IVPB 500 mg Q6H PRN Administration FEVER Bacitracin 1 applic 05/29/19 18:45 06/07/19 09:54 Bacitracin - TP 1 applic DAILY [facility] Administration Bupropion HCl 300 mg 06/04/19 08:00 06/07/19 08:34 Wellbutrin Xl - PO 300 mg 0800 [facility] Administration Diltiazem HCl 180 mg 06/03/19 22:00 06/06/19 22:09 Cardizem Cd - PO 180 mg HS [facility] Administration Emollient Ointment 1 applic 05/29/19 22:00 06/07/19 09:54 Aquaphor - TP 1 applic BID [facility] Administration Heparin Sodium (Porcine) 5,000 unit 05/29/19 10:00 06/07/19 10:30 Heparin - SQ 5,000 unit BID [facility] Administration Meropenem 1 gm/ Dextrose 100 mls @ 200 mls/hr 06/07/19 22:00 IVPB Q12H [facility] Dextrose/Sodium Chloride 1,000 mls @ 50 mls/hr 06/07/19 13:30 06/07/19 14:27 D5-1/2ns - IV 50 mls/hr ASDIR [facility] Administration Liothyronine Sodium 25 mcg 06/04/19 08:00 06/07/19 08:34 Cytomel - PO 25 mcg DAILY@0800 [facility] Administration Mupirocin 1 applic 05/29/19 14:15 06/07/19 09:54 Bactroban 2% Ointment - TP 1 applic DAILY [facility] Administration Nystatin 1 applic 05/31/19 22:00 06/07/19 09:55 Mycostatin Cream - TP 1 applic BID [facility] Administration Senna 2 tab 05/30/19 22:00 06/06/19 22:09 Senna - PO 2 tab HS [facility] Administration Sertraline HCl 100 mg 06/04/19 08:00 06/07/19 08:34 Zoloft - PO 100 mg DAILY@0800 [facility] Administration Ziprasidone 20 mg 06/05/19 16:00 06/07/19 08:35 Geodon Injection - IM 20 mg Q8H [facility] Administration Vital Signs Period Temp Pulse Resp BP Sys/Miller Pulse Ox Last 24 Hr 99.6 F-102.8 F 73-112 18-20 131-151/44-104 97-98 Constitutional: Yes: No Distress, Thin Eyes: Yes: Conjunctiva Clear Cardiovascular: Yes: Regular Rate and Rhythm Respiratory: Yes: CTA Bilaterally Gastrointestinal: Yes: Soft (NT) Edema: No Neurological: Yes: Alert no jaundice diaphoresis CBC, BMP 06/07/19 07:22 06/07/19 07:22 Assessment/Plan echo 05/2019: mild lvh, nl lvef, nl rv, mild tr, nl rvsp cxr: clear lungs ecg: sr nl intervals no ischemic changes a/p: 73 f hx hyperthyroid,dementia, depression, anxiety here s/p fall with UTI. fever, UTI: - abx per primary fall: -seems mechanical -echo and tele benign -pt/rehab eval htn: -continue dilt, titrate up prn sinus tachy: -likely related to psych issues and psych med adjustments as well as fever- also improved. -ecg, tsh, tele benign
[2019-06-07 18:08] LABS: EPITHELIAL CELLS FEW /hpf
[2019-06-07 19:37] LABS: BASO % 2.6 % (0-2.0); EOS % 0.2 % (0-4.5); HEMATOCRIT 43.4 % (32.4-45.2); MCH 31.6 pg (25.7-33.7); MCHC 32.3 g/dl (32.0-36.0); MEAN CELL VOLUME 97.7 fl (80-96); MONO % 6.8 % (3.8-10.2); NEUT % 81.4 % (42.8-82.8); PLATELET COUNT 135 K/MM3 (134-434); RBC 4.44 M/mm3 (3.60-5.2); RDW 14.4 % (11.6-15.6); WHITE BLOOD COUNT 10.3 K/mm3 (4.0-10.8)
[2019-06-07] MEDS ORDERED: MEROPENEM 1 GM in DEXTROSE 5%-WATER 100 ML IVPB SCH (22:00)
[2019-06-07] MEDS: SENNOSIDES 8.6MG TABLET (FP) PO SCH (22:07)
[2019-06-08] MEDS: ZIPRASIDONE 20 MG VIAL IM SCH ×4 (00:04→23:38)
[2019-06-08] MEDS: ACETAMINOPHEN 1000 MG/100 ML VIAL (NON FORMULARY) IVPB PRN (06:51)
--- NOTE | 2019-06-08 09:12 | PN ---
Physical Exam: SUBJECTIVE: Patient seen and examined OBJECTIVE: Vital Signs Period Temp Pulse Resp BP Sys/Miller Pulse Ox Last 24 Hr 100.3 F-102.1 F 72-111 18-20 127-170/71-97 91-99 GENERAL/Neuro: Patient asleep but arousable LUNGS: CTA HEART: Regular rate and rhythm, S1, S2 ABDOMEN: Soft, nontender, nondistended, normoactive bowel sounds EXTREMITIES: 2+ pulses, warm, well-perfused, no edema. NEUROLOGICAL: Cranial nerves II through XII grossly intact. Gait not observed. SKIN: maculopapular rash on back, Scabs on feet. Laboratory Results - last 24 hr 06/07/19 06/07/19 06/07/19 07:22 09:00 14:55 WBC RBC Hgb Hct MCV MCH MCHC RDW Plt Count MPV Absolute Neuts (auto) Neutrophils % Neutrophils % (Manual) 92.0 H* Band Neutrophils % 2.0 Lymphocytes % Lymphocytes % (Manual) 4.0 L Monocytes % Monocytes % (Manual) 2 L Eosinophils % Basophils % Platelet Estimate Adequate Anisocytosis 1+ Lactic Acid 1.6 Urine Color Yellow Urine Appearance Clear Urine pH 6.0 Urine Protein 1+ H Urine Glucose (UA) Negative Urine Ketones Trace Urine Blood Trace-intact Urine Nitrite Negative Urine Bilirubin Negative Urine Urobilinogen 0.2 Ur Leukocyte Esterase Negative Urine RBC 2-5 Urine WBC 5-10 Ur Transition Epith Cell Few Urine Bacteria Few 06/07/19 19:15 WBC 10.3 RBC 4.44 Hgb 14.0 Hct 43.4 MCV 97.7 H MCH 31.6 MCHC 32.3 RDW 14.4 Plt Count 135 MPV 8.0 Absolute Neuts (auto) 8.4 Neutrophils % 81.4 Neutrophils % (Manual) Band Neutrophils % Lymphocytes % 9.0 Lymphocytes % (Manual) Monocytes % 6.8 Monocytes % (Manual) Eosinophils % 0.2 Basophils % 2.6 H Platelet Estimate Anisocytosis Lactic Acid Urine Color Urine Appearance Urine pH Urine Protein Urine Glucose (UA) Urine Ketones Urine Blood Urine Nitrite Urine Bilirubin Urine Urobilinogen Ur Leukocyte Esterase Urine RBC Urine WBC Ur Transition Epith Cell Urine Bacteria Active Medications Generic Name Dose Route Start Last Admin Trade Name Freq PRN Reason Stop Dose Admin Acetaminophen 500 mg 06/07/19 10:56 06/08/19 06:51 Ofirmev Injection - IVPB 500 mg Q6H PRN Administration FEVER Bacitracin 1 applic 05/29/19 18:45 06/07/19 09:54 Bacitracin - TP 1 applic DAILY [facility] Administration Bupropion HCl 300 mg 06/04/19 08:00 06/07/19 08:34 Wellbutrin Xl - PO 300 mg 0800 [facility] Administration Diltiazem HCl 180 mg 06/03/19 22:00 06/07/19 22:06 Cardizem Cd - PO 180 mg HS [facility] Administration Emollient Ointment 1 applic 05/29/19 22:00 06/07/19 22:06 Aquaphor - TP 1 applic BID [facility] Administration Heparin Sodium (Porcine) 5,000 unit 05/29/19 10:00 06/07/19 22:06 Heparin - SQ 5,000 unit BID [facility] Administration Meropenem 1 gm/ Dextrose 100 mls @ 200 mls/hr 06/07/19 22:00 06/07/19 22:06 IVPB 200 mls/hr Q12H [facility] Administration Dextrose/Sodium Chloride 1,000 mls @ 50 mls/hr 06/07/19 13:30 06/07/19 14:27 D5-1/2ns - IV 50 mls/hr ASDIR [facility] Administration Liothyronine Sodium 25 mcg 06/04/19 08:00 06/07/19 08:34 Cytomel - PO 25 mcg DAILY@0800 [facility] Administration Mupirocin 1 applic 05/29/19 14:15 06/07/19 09:54 Bactroban 2% Ointment - TP 1 applic DAILY [facility] Administration Nystatin 1 applic 05/31/19 22:00 06/07/19 22:06 Mycostatin Cream - TP 1 applic BID [facility] Administration Senna 2 tab 05/30/19 22:00 06/07/19 22:07 Senna - PO 2 tab HS [facility] Administration Sertraline HCl 100 mg 06/04/19 08:00 06/07/19 08:34 Zoloft - PO 100 mg DAILY@0800 [facility] Administration Ziprasidone 20 mg 06/05/19 16:00 06/08/19 00:04 Geodon Injection - IM 20 mg Q8H [facility] Administration ASSESSMENT/PLAN: 73 year-old female with a PMH significant for schizo affective disorder, depression, degenerative disc disease, s/p left total hip replacement. Admitted following a fall at home and currently being treated for Sepsis and UTI. Severe sepsis secondary to E.coli UTI --Fever 98.5 @10am down from 101.5 @0600 WBC down to 7.4 from 10.3 yesterday evening --Per Dr. Izaguirre, One time dose vanco 1gm IVPB --continue meropenem (day #5) Schizoaffective disorder --episodes of agitation previously observed but patient is currenly resting comfortably, muscle rigidity, non purposeful movements are decreased on the increased dose of geodon ; --NO ATIVAN as it leads to oversedation and respiratory depression --continue bupropion, sertraline, liothyronine Hypertension --continue cardizem CD 180mg daily --cardiology following, Seen by Dr. Clark today. BP goal range -150/90 Hypokalemia --K+ 3.0 --KCL 10meq IVPB x 3 bags and repeat and until K+ is greater than or equal to 4. --Recheck CMP and Mg Compression fractures, chronic --ortho consult: no surgical intervention, weight-bearing as tolerated, PT Fungal dermatitis --Nystatin cream Peripheral vascular disease --chronic venous stasis changes Knee abrasions, improved --present on admission --mupirocin Prolonged QT interval --on anti-psychotic meds; avoid additional QT prolonging agents --keep K>4, Mg>2 --EKG in AM Severe protein calorie malnutrition --BMI 14.8, severe depletion of subq fat and muscle mass in the orbital, temporal and clavicular regions --Likely to need tube feeds Functional quadriplegia --completely dependent for all ADLs, needs to be fed, toileted, positioned FEN Fluids: D5 1/2NS @ 50ml/hr 1000ml Electrolytes: replete as indicated Nutrition: patient has had a barium swallow, has no difficulty swallowing and when she is awake, she has a very good appetite; when she is more somnolent , or if she is her meals are not supervised, she falls behind on calories; dietary has calculated her tube feeds needs but have deferred starting tube feeds until now; may eventually need a PEG but that issue will have to be addressed with the family and the health care proxy Claudia Manley DVT prophylaxis: subq heparin Physical therapy Dispo: continues to require inpatient care. Full code Visit type - Emergency Visit Emergency Visit: Yes ED Registration Date: 05/28/19 Care time: The patient presented to the Emergency Department on the above date and was hospitalized for further evaluation of their emergent condition. - New Patient This patient is new to me today: Yes Date on this admission: 06/09/19 - Critical Care Critical Care patient: No
[2019-06-08] MEDS ORDERED: DEXTROSE 5%-WATER 100 ML IVPB ONE ×2 (09:31→21:27)
[2019-06-08] MEDS ORDERED: MEROPENEM 1 GM VIAL (RESTRICTED TO ID) IVPB ONE ×2 (09:31→21:27)
[2019-06-08] MEDS: HEPARIN NA (PORCINE) 5,000 UNITS/ML 1ML VIAL SQ SCH ×2 (09:38→21:29)
[2019-06-08] MEDS: SERTRALINE HCL 50 MG TABLET (FP) PO SCH (09:38)
[2019-06-08] MEDS: MINERAL OIL/PET HY-PHL TOPICAL OINTMENT 454 GM JAR TP SCH ×2 (09:39→21:29)
[2019-06-08] MEDS: BACITRACIN 15 GM TUBE TOPICAL OINTMENT TP SCH (09:39)
[2019-06-08] MEDS: MUPIROCIN 2% TOPICAL OINTMENT 22 GM TUBE TP SCH (09:39)
[2019-06-08] MEDS: LIOTHYRONINE SODIUM 25 MCG TABLET PO SCH (09:46)
[2019-06-08] MEDS: NYSTATIN 100,000 UNIT/GM TOPICAL CREAM 15 GM TUBE TP SCH ×2 (09:47→21:30)
[2019-06-08] MEDS: MEROPENEM 1 GM in DEXTROSE 5%-WATER 100 ML IVPB SCH ×2 (09:47→21:29)
--- NOTE | 2019-06-08 10:07 | PN ---
Progress Note, Physician Chief Complaint: Still spiking fevers CT C/A/P done yest: intrahepatic ductal dilatation was the notable finding. D/W Hospitalist Leandro to consult GI Patient has eyes open but today does not respond verbally as she had on my exam few days ago. At times, BP is slightly above the goal of 150/90 - Current Medication List Current Medications: Active Medications Acetaminophen (Ofirmev Injection -) 500 mg IVPB Q6H PRN PRN Reason: FEVER Last Admin: 06/08/19 06:51 Dose: 500 mg Bacitracin (Bacitracin -) 1 applic TP DAILY [facility] Last Admin: 06/08/19 09:39 Dose: 1 applic Bupropion HCl (Wellbutrin Xl -) 300 mg PO 0800 [facility] Last Admin: 06/08/19 09:37 Dose: 300 mg Diltiazem HCl (Cardizem Cd -) 180 mg PO HS [facility] Last Admin: 06/07/19 22:06 Dose: 180 mg Emollient Ointment (Aquaphor -) 1 applic TP BID [facility] Last Admin: 06/08/19 09:39 Dose: 1 applic Heparin Sodium (Porcine) (Heparin -) 5,000 unit SQ BID [facility] Last Admin: 06/08/19 09:38 Dose: 5,000 unit Meropenem 1 gm/ Dextrose 100 mls @ 200 mls/hr IVPB Q12H [facility] Last Admin: 06/08/19 09:47 Dose: 200 mls/hr Dextrose/Sodium Chloride (D5-1/2ns -) 1,000 mls @ 50 mls/hr IV ASDIR [facility] Last Admin: 06/07/19 14:27 Dose: 50 mls/hr Liothyronine Sodium (Cytomel -) 25 mcg PO DAILY@0800 [facility] Last Admin: 06/08/19 09:46 Dose: 25 mcg Mupirocin (Bactroban 2% Ointment -) 1 applic TP DAILY [facility] Last Admin: 06/08/19 09:39 Dose: 1 applic Nystatin (Mycostatin Cream -) 1 applic TP BID [facility] Last Admin: 06/08/19 09:47 Dose: 1 applic Senna (Senna -) 2 tab PO HS [facility] Last Admin: 06/07/19 22:07 Dose: 2 tab Sertraline HCl (Zoloft -) 100 mg PO DAILY@0800 [facility] Last Admin: 06/08/19 09:38 Dose: 100 mg Ziprasidone (Geodon Injection -) 20 mg IM Q8H [facility] Last Admin: 06/08/19 09:47 Dose: 20 mg - Objective Vital Signs: Vital Signs Temperature 101.5 F H 06/08/19 06:00 Pulse Rate 72 06/08/19 06:00 Respiratory Rate 20 06/08/19 06:00 Blood Pressure 170/97 06/08/19 06:00 O2 Sat by Pulse Oximetry (%) 91 L 06/08/19 06:00 Constitutional: Yes: No Distress Cardiovascular: Yes: Regular Rate and Rhythm (no murmurs) Respiratory: Yes: Other (clear anteriorly, laterally; no active wheezing.) Gastrointestinal: Yes: Soft (NT on my exam.) Edema: No Labs: CBC, BMP 06/07/19 19:15 06/07/19 07:22 Laboratory Tests 06/07/19 06/07/19 07:22 19:15 WBC 10.3 Hgb 14.0 Plt Count 135 Sodium 143 Potassium 3.6 BUN 23.0 H Creatinine 0.7 Total Bilirubin 0.6 AST 31 ALT 26 Alkaline Phosphatase 87 Total Protein 6.3 L Albumin 3.4 - ....Imaging EKG: Image Reviewed Assessment/Plan Assessment/Plan echo 05/2019: mild lvh, nl lvef, nl rv, mild tr, nl rvsp cxr: clear lungs ecg: sr nl intervals no ischemic changes a/p: 73 f hx hyperthyroid,dementia, depression, anxiety here s/p fall with UTI , persistent fevers and now CT showing intrahepatic ductal dilatation. Fevers UTI: - abx per primary -Serial cultures -Recommend GI consult, discussed with hospitalist. Fall: -seems mechanical -echo and tele benign -pt/rehab eval HTN: the goal for age group is 150/90 -At times, she is slightly above this but overall average BP is acceptable. -continue dilt -For now would be cautious in aggressively treating BP as she is febrile and possibly in early stages of sepsis. Sinus Tachycardia: improved -likely related to psych issues and psych med adjustments as well as fever/ infection -ecg, tsh, tele benign
[2019-06-08 11:47] LABS: BASO % 0.4 % (0-2.0); EOS % 0.1 % (0-4.5); HEMATOCRIT 38.7 % (32.4-45.2); HEMOGLOBIN 12.9 GM/dl (10.7-15.3); LYMPH % 7.5 % (8-40); MCH 32.2 pg (25.7-33.7); MCHC 33.2 g/dl (32.0-36.0); MEAN PLT VOLUME 8.5 fl (7.5-11.1); MONO % 4.8 % (3.8-10.2); NEUT % 87.2 % (42.8-82.8); PLATELET COUNT 150 K/MM3 (134-434); RBC 3.99 M/mm3 (3.60-5.2); RDW 14.3 % (11.6-15.6); WHITE BLOOD COUNT 7.4 K/mm3 (4.0-10.8)
[2019-06-08 11:55] LABS: ALBUMIN 3.1 g/dl (3.4-5.0); BILIRUBIN,TOTAL 0.7 mg/dl (0.2-1); CALCIUM 8.3 mg/dl (8.5-10); CREATININE 0.6 mg/dl (0.55-1.3); MAGNESIUM 2.3 mg/dL (1.8-2.4); TOT PROT 5.8 g/dl (6.4-8.2)
[2019-06-08] MEDS ORDERED: VANCOMYCIN 1 GM in D5W (PRE-DOCKED) 1,000 MG/250 ML IVPB ONE (13:03)
[2019-06-08] MEDS: KCL 10 MEQ IVPB 10 MEQ/100 ML INFUS.BAG IVPB SCH ×4 (14:00→23:42)
[2019-06-08] MEDS: DEXTROSE 5%-0.45% SALINE 1,000 ML IV SCH ×2 (14:27→23:42)
[2019-06-08 20:21] LABS: ALBUMIN 3.4 g/dl (3.4-5.0); BILIRUBIN,TOTAL 0.7 mg/dl (0.2-1); CALCIUM 9.2 mg/dl (8.5-10); CREATININE 0.8 mg/dl (0.55-1.3); POTASSIUM 3.4 mmol/L (3.5-5.1); TOT PROT 6.3 g/dl (6.4-8.2)
[2019-06-08] MEDS: SENNOSIDES 8.6MG TABLET (FP) PO SCH (21:30)
[2019-06-09] MEDS: KCL 10 MEQ IVPB 10 MEQ/100 ML INFUS.BAG IVPB SCH (01:19)
[2019-06-09] MEDS: ACETAMINOPHEN 1000 MG/100 ML VIAL (NON FORMULARY) IVPB PRN (07:08)
[2019-06-09 08:07] LABS: BASO % 0.4 % (0-2.0); EOS % 2.2 % (0-4.5); HEMATOCRIT 40.5 % (32.4-45.2); HEMOGLOBIN 13.2 GM/dl (10.7-15.3); LYMPH % 12.1 % (8-40); MCH 31.7 pg (25.7-33.7); MCHC 32.6 g/dl (32.0-36.0); MEAN CELL VOLUME 97.4 fl (80-96); MEAN PLT VOLUME 8.5 fl (7.5-11.1); MONO % 4.7 % (3.8-10.2); NEUT % 80.6 % (42.8-82.8); PLATELET COUNT 193 K/MM3 (134-434); RBC 4.16 M/mm3 (3.60-5.2); RDW 14.6 % (11.6-15.6); WHITE BLOOD COUNT 8.7 K/mm3 (4.0-10.8)
[2019-06-09 08:13] LABS: ALBUMIN 3.2 g/dl (3.4-5.0); BILIRUBIN,TOTAL 0.6 mg/dl (0.2-1); CALCIUM 8.8 mg/dl (8.5-10); CREATININE 0.5 mg/dl (0.55-1.3); MAGNESIUM 2.2 mg/dL (1.8-2.4); POTASSIUM 3.6 mmol/L (3.5-5.1); TOT PROT 5.9 g/dl (6.4-8.2)
--- NOTE | 2019-06-09 08:52 | PN ---
Physical Exam: SUBJECTIVE: Patient seen and examined at bedside. No signs or symptoms of distress. Patient states her name only. OBJECTIVE: Vital Signs Period Temp Pulse Resp BP Sys/Miller Pulse Ox Last 24 Hr 98.3 F-98.7 F 74-105 18-20 124-180/69-98 97-100 GENERAL/Neuro: Patient awake and alert to person. LUNGS: CTA HEART: Regular rate and rhythm, S1, S2 ABDOMEN: Soft, nontender, nondistended, normoactive bowel sounds EXTREMITIES: 2+ pulses, warm, well-perfused, no edema. NEUROLOGICAL: Cranial nerves II through XII grossly intact. Gait not observed. SKIN: maculopapular rash on back, Scabs on feet. Laboratory Results - last 24 hr 06/08/19 06/08/19 06/08/19 11:20 11:20 20:00 WBC 7.4 RBC 3.99 Hgb 12.9 Hct 38.7 MCV 97.0 H MCH 32.2 MCHC 33.2 RDW 14.3 Plt Count 150 MPV 8.5 Absolute Neuts (auto) 6.4 Neutrophils % 87.2 H Lymphocytes % 7.5 L Monocytes % 4.8 Eosinophils % 0.1 Basophils % 0.4 Sodium 143 139 Potassium 3.0 L 3.4 L Chloride 107 105 Carbon Dioxide 29 29 Anion Gap 7 L 5 L BUN 26.0 H 27.0 H Creatinine 0.6 0.8 Est GFR (CKD-EPI)AfAm 104.07 84.18 Est GFR (CKD-EPI)NonAf 89.79 72.63 Random Glucose 114 H 138 H Calcium 8.3 L 9.2 Magnesium 2.3 Total Bilirubin 0.7 0.7 AST 26 29 ALT 24 26 Alkaline Phosphatase 75 D 84 Total Protein 5.8 L 6.3 L Albumin 3.1 L 3.4 06/09/19 06/09/19 07:19 07:19 WBC 8.7 RBC 4.16 Hgb 13.2 Hct 40.5 MCV 97.4 H MCH 31.7 MCHC 32.6 RDW 14.6 Plt Count 193 MPV 8.5 Absolute Neuts (auto) 7.0 Neutrophils % 80.6 Lymphocytes % 12.1 Monocytes % 4.7 Eosinophils % 2.2 Basophils % 0.4 Sodium 136 Potassium 3.6 Chloride 101 Carbon Dioxide 28 Anion Gap 7 L BUN 22.0 H Creatinine 0.5 L Est GFR (CKD-EPI)AfAm 110.50 Est GFR (CKD-EPI)NonAf 95.34 Random Glucose 108 H Calcium 8.8 Magnesium 2.2 Total Bilirubin 0.6 AST 26 ALT 24 Alkaline Phosphatase 81 Total Protein 5.9 L Albumin 3.2 L Active Medications Generic Name Dose Route Start Last Admin Trade Name Freq PRN Reason Stop Dose Admin Acetaminophen 500 mg 06/07/19 10:56 06/09/19 07:08 Ofirmev Injection - IVPB 500 mg Q6H PRN Administration FEVER Bacitracin 1 applic 05/29/19 18:45 06/08/19 09:39 Bacitracin - TP 1 applic DAILY [facility] Administration Bupropion HCl 300 mg 06/04/19 08:00 06/08/19 09:37 Wellbutrin Xl - PO 300 mg 0800 [facility] Administration Diltiazem HCl 180 mg 06/03/19 22:00 06/08/19 21:29 Cardizem Cd - PO 180 mg HS [facility] Administration Emollient Ointment 1 applic 05/29/19 22:00 06/08/19 21:29 Aquaphor - TP 1 applic BID [facility] Administration Heparin Sodium (Porcine) 5,000 unit 05/29/19 10:00 06/08/19 21:29 Heparin - SQ 5,000 unit BID [facility] Administration Meropenem 1 gm/ Dextrose 100 mls @ 200 mls/hr 06/07/19 22:00 06/08/19 21:29 IVPB 200 mls/hr Q12H [facility] Administration Dextrose/Sodium Chloride 1,000 mls @ 50 mls/hr 06/08/19 23:30 06/08/19 23:42 D5-1/2ns - IV 50 mls/hr ASDIR [facility] Administration Liothyronine Sodium 25 mcg 06/04/19 08:00 06/08/19 09:46 Cytomel - PO 25 mcg DAILY@0800 [facility] Administration Mupirocin 1 applic 05/29/19 14:15 06/08/19 09:39 Bactroban 2% Ointment - TP 1 applic DAILY [facility] Administration Nystatin 1 applic 05/31/19 22:00 06/08/19 21:30 Mycostatin Cream - TP 1 applic BID [facility] Administration Senna 2 tab 05/30/19 22:00 06/08/19 21:30 Senna - PO 2 tab HS [facility] Administration Sertraline HCl 100 mg 06/04/19 08:00 06/08/19 09:38 Zoloft - PO 100 mg DAILY@0800 [facility] Administration Ziprasidone 20 mg 06/05/19 16:00 06/08/19 23:38 Geodon Injection - IM 20 mg Q8H [facility] Administration ASSESSMENT/PLAN: 73 year-old female with a PMH significant for schizo affective disorder, depression, degenerative disc disease, s/p left total hip replacement. Admitted following a fall at home and currently being treated for Sepsis and UTI. Severe sepsis secondary to E.coli UTI --Temp 98.5 WBC 8.7 --ID Following- Dr. Izaguirre --continue meropenem (day #6) Schizoaffective disorder --episodes of agitation previously observed but patient is currenly resting comfortably, muscle rigidity, non purposeful movements are decreased on the increased dose of geodon ; --NO ATIVAN as it leads to oversedation and respiratory depression --continue bupropion, sertraline, liothyronine Hypertension --continue cardizem CD 180mg daily --cardiology following, Seen by Dr. Clark today. BP goal range -150/90 Hypokalemia --K+ 3.6 --KCl 40meq x 2 --Recheck K+ at 1800 for goal (K+ is greater than or equal to 4) Compression fractures, chronic --ortho consult: no surgical intervention, weight-bearing as tolerated, PT Fungal dermatitis --Nystatin cream Peripheral vascular disease --chronic venous stasis changes Knee abrasions, improved --present on admission --mupirocin Prolonged QT interval --on anti-psychotic meds; avoid additional QT prolonging agents --keep K>4, Mg>2 Severe protein calorie malnutrition --BMI 14.8, severe depletion of subq fat and muscle mass in the orbital, temporal and clavicular regions --Likely to need tube feeds Functional quadriplegia --completely dependent for all ADLs, needs to be fed, toileted, positioned FEN Fluids: D5 1/2NS @ 50ml/hr 1000ml Electrolytes: replete as indicated Nutrition: Regular Diet- patient has had a barium swallow, has no difficulty swallowing and when she is awake, she has a very good appetite; when she is more somnolent, or if she is her meals are not supervised, she falls behind on calories; dietary has calculated her tube feeds needs but have deferred starting tube feeds until now; may eventually need a PEG but that issue will have to be addressed with the family and the health care proxy Claudia Manley DVT prophylaxis: subq heparin Physical therapy Dispo: continues to require inpatient care. Full code Visit type - Emergency Visit Emergency Visit: Yes ED Registration Date: 05/28/19 Care time: The patient presented to the Emergency Department on the above date and was hospitalized for further evaluation of their emergent condition. - New Patient This patient is new to me today: Yes Date on this admission: 06/10/19 - Critical Care Critical Care patient: No - Discharge Referral Referred to [facility] No
[2019-06-09] MEDS ORDERED: KCL 10 MEQ IVPB 10 MEQ/100 ML INFUS.BAG IVPB SCH (09:45)
[2019-06-09] MEDS ORDERED: DEXTROSE 5%-WATER 100 ML IVPB ONE ×3 (09:58→21:29)
[2019-06-09] MEDS ORDERED: MEROPENEM 1 GM VIAL (RESTRICTED TO ID) IVPB ONE ×2 (09:59→21:30)
[2019-06-09] MEDS: LIOTHYRONINE SODIUM 25 MCG TABLET PO SCH (10:06)
[2019-06-09] MEDS: SERTRALINE HCL 50 MG TABLET (FP) PO SCH (10:06)
[2019-06-09] MEDS: ZIPRASIDONE 20 MG VIAL IM SCH ×2 (10:10→16:46)
[2019-06-09] MEDS: MINERAL OIL/PET HY-PHL TOPICAL OINTMENT 454 GM JAR TP SCH ×2 (10:11→22:08)
[2019-06-09] MEDS: MEROPENEM 1 GM in DEXTROSE 5%-WATER 100 ML IVPB SCH ×2 (10:49→22:08)
[2019-06-09] MEDS: HEPARIN NA (PORCINE) 5,000 UNITS/ML 1ML VIAL SQ SCH ×2 (10:49→22:08)
[2019-06-09] MEDS: MUPIROCIN 2% TOPICAL OINTMENT 22 GM TUBE TP SCH (10:49)
[2019-06-09] MEDS: NYSTATIN 100,000 UNIT/GM TOPICAL CREAM 15 GM TUBE TP SCH ×2 (10:49→22:09)
[2019-06-09] MEDS: BACITRACIN 15 GM TUBE TOPICAL OINTMENT TP SCH (10:49)
[2019-06-09] MEDS ORDERED: POTASSIUM CHLORIDE TABS 20 MEQ TABLET.ER (FP) PO ONE ×2 (11:15→16:00)
[2019-06-09 14:44] VITALS: BMI 12.9
--- NOTE | 2019-06-09 15:32 | PN ---
Progress Note, Physician History of Present Illness: patient looks stable more awake and alert wbc has normalized - Current Medication List Current Medications: Active Medications Acetaminophen (Ofirmev Injection -) 500 mg IVPB Q6H PRN PRN Reason: FEVER Last Admin: 06/09/19 07:08 Dose: 500 mg Bacitracin (Bacitracin -) 1 applic TP DAILY [facility] Last Admin: 06/09/19 10:49 Dose: 1 applic Bupropion HCl (Wellbutrin Xl -) 300 mg PO 0800 [facility] Last Admin: 06/09/19 10:07 Dose: 300 mg Diltiazem HCl (Cardizem Cd -) 180 mg PO HS [facility] Last Admin: 06/08/19 21:29 Dose: 180 mg Emollient Ointment (Aquaphor -) 1 applic TP BID [facility] Last Admin: 06/09/19 10:11 Dose: 1 applic Heparin Sodium (Porcine) (Heparin -) 5,000 unit SQ BID [facility] Last Admin: 06/09/19 10:49 Dose: 5,000 unit Meropenem 1 gm/ Dextrose 100 mls @ 200 mls/hr IVPB Q12H [facility] Last Admin: 06/09/19 10:49 Dose: 200 mls/hr Dextrose/Sodium Chloride (D5-1/2ns -) 1,000 mls @ 50 mls/hr IV ASDIR [facility] Last Admin: 06/08/19 23:42 Dose: 50 mls/hr Liothyronine Sodium (Cytomel -) 25 mcg PO DAILY@0800 [facility] Last Admin: 06/09/19 10:06 Dose: 25 mcg Mupirocin (Bactroban 2% Ointment -) 1 applic TP DAILY [facility] Last Admin: 06/09/19 10:49 Dose: 1 applic Nystatin (Mycostatin Cream -) 1 applic TP BID [facility] Last Admin: 06/09/19 10:49 Dose: 1 applic Potassium Chloride (K-Dur -) 40 meq PO ONCE ONE Stop: 06/09/19 16:01 Senna (Senna -) 2 tab PO HS [facility] Last Admin: 06/08/19 21:30 Dose: 2 tab Sertraline HCl (Zoloft -) 100 mg PO DAILY@0800 [facility] Last Admin: 06/09/19 10:06 Dose: 100 mg Ziprasidone (Geodon Injection -) 20 mg IM Q8H [facility] Last Admin: 06/09/19 10:10 Dose: 20 mg - Objective Vital Signs: Vital Signs Temperature 98.3 F 06/09/19 14:24 Pulse Rate 84 06/09/19 14:24 Respiratory Rate 17 06/09/19 14:24 Blood Pressure 120/83 06/09/19 14:24 O2 Sat by Pulse Oximetry (%) 90 L 06/09/19 14:24 Constitutional: Yes: No Distress, Calm, Thin, Other (failure to thrive) Cardiovascular: Yes: Regular Rate and Rhythm Respiratory: Yes: Regular, CTA Bilaterally Gastrointestinal: Yes: Normal Bowel Sounds, Soft Musculoskeletal: Yes: WNL Extremities: Yes: WNL Neurological: Yes: Alert, Other Psychiatric: Yes: Other Labs: CBC, BMP 06/09/19 07:19 06/09/19 07:19 Assessment/Plan 73 year-old female with a PMH significant for schizoaffective disorder, depression, degenerative disc disease, s/p left total hip replacement. Admitted following a fall at home. fever uti weakness plan continue abx asp precautions nutrition rest as per the team
--- NOTE | 2019-06-09 15:48 | PN ---
Progress Note (short form) - Note Progress Note: s: no cp sob palps dizzy Active Medications Generic Name Dose Route Start Last Admin Trade Name Freq PRN Reason Stop Dose Admin Acetaminophen 500 mg 06/07/19 10:56 06/09/19 07:08 Ofirmev Injection - IVPB 500 mg Q6H PRN Administration FEVER Bacitracin 1 applic 05/29/19 18:45 06/09/19 10:49 Bacitracin - TP 1 applic DAILY [facility] Administration Bupropion HCl 300 mg 06/04/19 08:00 06/09/19 10:07 Wellbutrin Xl - PO 300 mg 0800 [facility] Administration Diltiazem HCl 180 mg 06/03/19 22:00 06/08/19 21:29 Cardizem Cd - PO 180 mg HS [facility] Administration Emollient Ointment 1 applic 05/29/19 22:00 06/09/19 10:11 Aquaphor - TP 1 applic BID [facility] Administration Heparin Sodium (Porcine) 5,000 unit 05/29/19 10:00 06/09/19 10:49 Heparin - SQ 5,000 unit BID [facility] Administration Meropenem 1 gm/ Dextrose 100 mls @ 200 mls/hr 06/07/19 22:00 06/09/19 10:49 IVPB 200 mls/hr Q12H [facility] Administration Dextrose/Sodium Chloride 1,000 mls @ 50 mls/hr 06/08/19 23:30 06/08/19 23:42 D5-1/2ns - IV 50 mls/hr ASDIR [facility] Administration Vancomycin HCl 1,000 mg/ 250 mls @ 200 mls/hr 06/09/19 15:30 Dextrose IVPB Q24H [facility] Protocol Liothyronine Sodium 25 mcg 06/04/19 08:00 06/09/19 10:06 Cytomel - PO 25 mcg DAILY@0800 [facility] Administration Mupirocin 1 applic 05/29/19 14:15 06/09/19 10:49 Bactroban 2% Ointment - TP 1 applic DAILY [facility] Administration Nystatin 1 applic 05/31/19 22:00 06/09/19 10:49 Mycostatin Cream - TP 1 applic BID [facility] Administration Potassium Chloride 40 meq 06/09/19 16:00 K-Dur - PO 06/09/19 16:01 ONCE ONE Senna 2 tab 05/30/19 22:00 06/08/19 21:30 Senna - PO 2 tab HS [facility] Administration Sertraline HCl 100 mg 06/04/19 08:00 06/09/19 10:06 Zoloft - PO 100 mg DAILY@0800 [facility] Administration Ziprasidone 20 mg 06/05/19 16:00 06/09/19 10:10 Geodon Injection - IM 20 mg Q8H [facility] Administration Vital Signs Period Temp Pulse Resp BP Sys/Miller Pulse Ox Last 24 Hr 98.3 F-98.7 F 74-105 17-20 120-180/69-98 90-100 Constitutional: Yes: No Distress, Thin Eyes: Yes: Conjunctiva Clear Cardiovascular: Yes: Regular Rate and Rhythm Respiratory: Yes: CTA Bilaterally Gastrointestinal: Yes: Soft (NT) Edema: No Neurological: Yes: Alert no jaundice diaphoresis CBC, BMP 06/09/19 07:19 06/09/19 07:19 Assessment/Plan echo 05/2019: mild lvh, nl lvef, nl rv, mild tr, nl rvsp cxr: clear lungs ecg: sr nl intervals no ischemic changes a/p: 73 f hx hyperthyroid,dementia, depression, anxiety here s/p fall with UTI , persistent fevers and now CT showing intrahepatic ductal dilatation. Fevers UTI: -abx per primary -Serial cultures -GI consult pending Fall: -seems mechanical -echo and tele benign -pt/rehab eval HTN: the goal for age group is 150/90 -At times, she is slightly above this but overall average BP is acceptable. -continue dilt -For now would be cautious in aggressively treating BP in setting of infection/ sepsis Sinus Tachycardia: improved -likely related to psych issues and psych med adjustments as well as fever/ infection -ecg, tsh, tele benign
[2019-06-09] MEDS: VANCOMYCIN 1 GRAM (PRE-DOCKED) 1,000 MG/250 ML BAG IVPB SCH (16:46)
[2019-06-09] MEDS ORDERED: PT OWN MED DRAWER 7, Y5N ONE (21:29)
[2019-06-09] MEDS: SENNOSIDES 8.6MG TABLET (FP) PO SCH (22:08)
[2019-06-10] MEDS: ZIPRASIDONE 20 MG VIAL IM SCH ×3 (07:59→15:32)
[2019-06-10] MEDS: LIOTHYRONINE SODIUM 25 MCG TABLET PO SCH (08:00)
[2019-06-10] MEDS: SERTRALINE HCL 50 MG TABLET (FP) PO SCH (08:00)
[2019-06-10 08:28] LABS: BASO % 0.2 % (0-2.0); EOS % 0.9 % (0-4.5); HEMATOCRIT 39.4 % (32.4-45.2); HEMOGLOBIN 12.9 GM/dl (10.7-15.3); LYMPH % 6.7 % (8-40); MCH 32.1 pg (25.7-33.7); MCHC 32.8 g/dl (32.0-36.0); MEAN CELL VOLUME 97.8 fl (80-96); MEAN PLT VOLUME 8.5 fl (7.5-11.1); MONO % 3.8 % (3.8-10.2); NEUT % 88.4 % (42.8-82.8); PLATELET COUNT 194 K/MM3 (134-434); RBC 4.03 M/mm3 (3.60-5.2); RDW 14.5 % (11.6-15.6); WHITE BLOOD COUNT 12.8 K/mm3 (4.0-10.8)
[2019-06-10 08:44] LABS: ALBUMIN 3.1 g/dl (3.4-5.0); BILIRUBIN,TOTAL 0.6 mg/dl (0.2-1); CALCIUM 8.7 mg/dl (8.5-10); CREATININE 0.5 mg/dl (0.55-1.3); POTASSIUM 3.7 mmol/L (3.5-5.1); TOT PROT 5.7 g/dl (6.4-8.2)
[2019-06-10] MEDS ORDERED: POTASSIUM CHLORIDE TABS 20 MEQ TABLET.ER (FP) PO ONE ×2 (09:00→13:00)
--- NOTE | 2019-06-10 09:15 | PN ---
Physical Exam: SUBJECTIVE: Patient seen and examined in recliner. No signs or symptoms of distress. pt responds when asked if she is in any pain, "No pain" OBJECTIVE: Vital Signs Period Temp Pulse Resp BP Sys/Miller Pulse Ox Last 24 Hr 97.4 F-98.5 F 71-96 17-20 120-150/55-84 90-97 GENERAL/Neuro: Patient awake and alert to person. LUNGS: CTA HEART: Regular rate and rhythm, S1, S2 ABDOMEN: Soft, nontender, nondistended, normoactive bowel sounds EXTREMITIES: 2+ pulses, warm, well-perfused, no edema. NEUROLOGICAL: Cranial nerves II through XII grossly intact. Gait not observed. SKIN: maculopapular rash on back, Scabs on feet. Laboratory Results - last 24 hr 06/05/19 06/09/19 06/10/19 06:40 18:00 07:15 WBC 12.8 H RBC 4.03 Hgb 12.9 Hct 39.4 MCV 97.8 H MCH 32.1 MCHC 32.8 RDW 14.5 Plt Count 194 MPV 8.5 Absolute Neuts (auto) 11.3 Neutrophils % 88.4 H Lymphocytes % 6.7 L Monocytes % 3.8 Eosinophils % 0.9 Basophils % 0.2 Sodium Potassium 4.2 Chloride Carbon Dioxide Anion Gap BUN Creatinine Est GFR (CKD-EPI)AfAm Est GFR (CKD-EPI)NonAf Random Glucose Calcium Magnesium Total Bilirubin AST ALT Alkaline Phosphatase Creatine Kinase 514 H Creatine Kinase Index 0.8 CK-MB (CK-2) 4.2 H Total Protein Albumin 06/10/19 06/10/19 07:15 07:15 WBC RBC Hgb Hct MCV MCH MCHC RDW Plt Count MPV Absolute Neuts (auto) Neutrophils % Lymphocytes % Monocytes % Eosinophils % Basophils % Sodium 137 Potassium 3.7 Chloride 101 Carbon Dioxide 27 Anion Gap 9 BUN 23.0 H Creatinine 0.5 L Est GFR (CKD-EPI)AfAm 110.50 Est GFR (CKD-EPI)NonAf 95.34 Random Glucose 109 H Calcium 8.7 Magnesium 2.2 Total Bilirubin 0.6 AST 19 ALT 21 Alkaline Phosphatase 82 Creatine Kinase Creatine Kinase Index CK-MB (CK-2) Total Protein 5.7 L Albumin 3.1 L Active Medications Generic Name Dose Route Start Last Admin Trade Name Freq PRN Reason Stop Dose Admin Acetaminophen 500 mg 06/07/19 10:56 06/09/19 07:08 Ofirmev Injection - IVPB 500 mg Q6H PRN Administration FEVER Bacitracin 1 applic 05/29/19 18:45 06/09/19 10:49 Bacitracin - TP 1 applic DAILY [facility] Administration Bupropion HCl 300 mg 06/04/19 08:00 06/10/19 07:59 Wellbutrin Xl - PO 300 mg 0800 [facility] Administration Diltiazem HCl 180 mg 06/03/19 22:00 06/09/19 22:08 Cardizem Cd - PO 180 mg HS [facility] Administration Emollient Ointment 1 applic 05/29/19 22:00 06/09/19 22:08 Aquaphor - TP 1 applic BID [facility] Administration Enoxaparin Sodium 30 mg 06/10/19 10:00 Lovenox - SQ DAILY [facility] Meropenem 1 gm/ Dextrose 100 mls @ 200 mls/hr 06/07/19 22:00 06/09/19 22:08 IVPB 200 mls/hr Q12H [facility] Administration Dextrose/Sodium Chloride 1,000 mls @ 50 mls/hr 06/08/19 23:30 06/08/19 23:42 D5-1/2ns - IV 50 mls/hr ASDIR [facility] Administration Vancomycin HCl 1,000 mg in 250 mls @ 166.667 mls/hr 06/09/19 15:30 06/09/19 16:46 Vancomycin (Pre-Docked) IVPB 166.667 mls/hr Q24H [facility] Administration Protocol Liothyronine Sodium 25 mcg 06/04/19 08:00 06/10/19 08:00 Cytomel - PO 25 mcg DAILY@0800 [facility] Administration Mupirocin 1 applic 05/29/19 14:15 06/09/19 10:49 Bactroban 2% Ointment - TP 1 applic DAILY [facility] Administration Nystatin 1 applic 05/31/19 22:00 06/09/19 22:09 Mycostatin Cream - TP 1 applic BID [facility] Administration Potassium Chloride 40 meq 06/10/19 09:00 K-Dur - PO 06/10/19 09:01 ONCE ONE Potassium Chloride 40 meq 06/10/19 13:00 K-Dur - PO 06/10/19 13:01 ONCE ONE Senna 2 tab 05/30/19 22:00 06/09/19 22:08 Senna - PO 2 tab HS [facility] Administration Sertraline HCl 100 mg 06/04/19 08:00 06/10/19 08:00 Zoloft - PO 100 mg DAILY@0800 [facility] Administration Ziprasidone 20 mg 06/05/19 16:00 06/10/19 07:59 Geodon Injection - IM 20 mg Q8H [facility] Administration ASSESSMENT/PLAN: 73 year-old female with a PMH significant for schizo affective disorder, depression, degenerative disc disease, s/p left total hip replacement. Admitted following a fall at home and currently being treated for Sepsis and UTI. Severe sepsis secondary to E.coli UTI --Temp 98.9 WBC 12.8 -CXR ordered to R/O Aspiration Pneumonia= Chest X-Ray Results - No acute chest pathology --ID Following- Dr. Izaguirre --continue meropenem (day #7) -- cont Vanco (day #3) Schizoaffective disorder --episodes of agitation previously observed but patient is currently resting comfortably, muscle rigidity, non purposeful movements are decreased on the increased dose of geodon ; --NO ATIVAN as it leads to oversedation and respiratory depression --continue bupropion, sertraline, liothyronine Hypertension --continue cardizem CD 180mg daily --cardiology following, Seen by Dr. Clark: BP goal range -150/90 Hypokalemia --K+ 3.7 this am from 4.2 06/09 1800 labs --KCl 40meq x 2 --Recheck K+ at 1500 for goal (K+ is greater than or equal to 4) Compression fractures, chronic --ortho consult: no surgical intervention, weight-bearing as tolerated, PT Fungal dermatitis --Nystatin cream Peripheral vascular disease --chronic venous stasis changes Knee abrasions, improved --present on admission --mupirocin Prolonged QT interval --on anti-psychotic meds; avoid additional QT prolonging agents --keep K>4, Mg>2 Severe protein calorie malnutrition --BMI 14.8, severe depletion of subq fat and muscle mass in the orbital, temporal and clavicular regions --Likely to need tube feeds Functional quadriplegia --completely dependent for all ADLs, needs to be fed, toileted, positioned FEN Fluids: D5 1/2NS @ 50ml/hr 1000ml Electrolytes: replete as indicated Nutrition: Regular Diet- patient has had a barium swallow, has no difficulty swallowing and when she is awake, she has a very good appetite; when she is more somnolent, or if she is her meals are not supervised, she falls behind on calories; dietary has calculated her tube feeds needs but have deferred starting tube feeds until now; may eventually need a PEG but that issue will have to be addressed with the family and the health care proxy Claudia Manley DVT prophylaxis: Start Lovenox 30mg Daily Physical therapy Dispo: continues to require inpatient care. Full code Visit type - Emergency Visit Emergency Visit: Yes ED Registration Date: 05/28/19 Care time: The patient presented to the Emergency Department on the above date and was hospitalized for further evaluation of their emergent condition. - New Patient This patient is new to me today: No - Critical Care Critical Care patient: No - Discharge Referral Referred to [facility] Med [facility].C.: No
--- NOTE | 2019-06-10 09:34 | PN ---
Progress Note, Physician History of Present Illness: stable no new issues - Current Medication List Current Medications: Active Medications Acetaminophen (Ofirmev Injection -) 500 mg IVPB Q6H PRN PRN Reason: FEVER Last Admin: 06/09/19 07:08 Dose: 500 mg Bacitracin (Bacitracin -) 1 applic TP DAILY [facility] Last Admin: 06/09/19 10:49 Dose: 1 applic Bupropion HCl (Wellbutrin Xl -) 300 mg PO 0800 [facility] Last Admin: 06/10/19 07:59 Dose: 300 mg Diltiazem HCl (Cardizem Cd -) 180 mg PO HS [facility] Last Admin: 06/09/19 22:08 Dose: 180 mg Emollient Ointment (Aquaphor -) 1 applic TP BID [facility] Last Admin: 06/09/19 22:08 Dose: 1 applic Enoxaparin Sodium (Lovenox -) 30 mg SQ DAILY [facility] Meropenem 1 gm/ Dextrose 100 mls @ 200 mls/hr IVPB Q12H [facility] Last Admin: 06/09/19 22:08 Dose: 200 mls/hr Dextrose/Sodium Chloride (D5-1/2ns -) 1,000 mls @ 50 mls/hr IV ASDIR [facility] Last Admin: 06/08/19 23:42 Dose: 50 mls/hr Vancomycin HCl (Vancomycin (Pre-Docked)) 1,000 mg in 250 mls @ 166.667 mls/hr IVPB Q24H [facility]; Protocol Last Admin: 06/09/19 16:46 Dose: 166.667 mls/hr Liothyronine Sodium (Cytomel -) 25 mcg PO DAILY@0800 [facility] Last Admin: 06/10/19 08:00 Dose: 25 mcg Mupirocin (Bactroban 2% Ointment -) 1 applic TP DAILY [facility] Last Admin: 06/09/19 10:49 Dose: 1 applic Nystatin (Mycostatin Cream -) 1 applic TP BID [facility] Last Admin: 06/09/19 22:09 Dose: 1 applic Potassium Chloride (K-Dur -) 40 meq PO ONCE ONE Stop: 06/10/19 09:01 Potassium Chloride (K-Dur -) 40 meq PO ONCE ONE Stop: 06/10/19 13:01 Senna (Senna -) 2 tab PO HS [facility] Last Admin: 06/09/19 22:08 Dose: 2 tab Sertraline HCl (Zoloft -) 100 mg PO DAILY@0800 [facility] Last Admin: 06/10/19 08:00 Dose: 100 mg Ziprasidone (Geodon Injection -) 20 mg IM Q8H [facility] Last Admin: 06/10/19 07:59 Dose: 20 mg - Objective Vital Signs: Vital Signs Temperature 98.5 F 06/10/19 06:00 Pulse Rate 81 06/10/19 06:00 Respiratory Rate 18 06/10/19 06:00 Blood Pressure 149/84 06/10/19 06:00 O2 Sat by Pulse Oximetry (%) 96 06/10/19 06:56 Constitutional: Yes: No Distress, Calm, Other (failure to thrive) Cardiovascular: Yes: S1, S2 Respiratory: Yes: Regular, CTA Bilaterally Gastrointestinal: Yes: Normal Bowel Sounds, Soft Musculoskeletal: Yes: WNL Extremities: Yes: WNL Neurological: Yes: Alert, Other Psychiatric: Yes: Other Labs: CBC, BMP 06/10/19 07:15 06/10/19 07:15 Assessment/Plan 73 year-old female with a PMH significant for schizoaffective disorder, depression, degenerative disc disease, s/p left total hip replacement. Admitted following a fall at home. fever uti weakness plan continue abx asp precautions nutrition rest as per the team
[2019-06-10] MEDS ORDERED: ENOXAPARIN NA (PORCINE) 40 MG/0.4 ML DISP.SYRIN SQ SCH (10:00)
[2019-06-10] MEDS ORDERED: MEROPENEM 1 GM VIAL (RESTRICTED TO ID) IVPB ONE ×2 (11:02→21:06)
[2019-06-10] MEDS ORDERED: DEXTROSE 5%-WATER 100 ML IVPB ONE ×2 (11:02→21:06)
[2019-06-10] MEDS: MINERAL OIL/PET HY-PHL TOPICAL OINTMENT 454 GM JAR TP SCH ×2 (11:03→21:29)
[2019-06-10] MEDS: BACITRACIN 15 GM TUBE TOPICAL OINTMENT TP SCH (11:04)
[2019-06-10] MEDS: MUPIROCIN 2% TOPICAL OINTMENT 22 GM TUBE TP SCH (11:04)
[2019-06-10] MEDS: NYSTATIN 100,000 UNIT/GM TOPICAL CREAM 15 GM TUBE TP SCH ×2 (11:05→21:30)
[2019-06-10] MEDS: MEROPENEM 1 GM in DEXTROSE 5%-WATER 100 ML IVPB SCH ×2 (11:05→21:30)
[2019-06-10] MEDS: ENOXAPARIN NA (PORCINE) 30 MG/0.3 ML DISP.SYRIN SQ SCH (12:01)
[2019-06-10] MEDS: DEXTROSE 5%-0.45% SALINE 1,000 ML IV SCH (12:58)
[2019-06-10] MEDS: VANCOMYCIN 1 GRAM (PRE-DOCKED) 1,000 MG/250 ML BAG IVPB SCH (15:32)
--- NOTE | 2019-06-10 18:03 | PN ---
Progress Note (short form) - Note Progress Note: Pt seen, doing well, she states she has little to no pain in the back. She also states she was able to get OOB and ambulate with P.T. today. AVSS + OOB in chair, appears very comfortable. Doing well, NTD orthopedically except P.T. assistance for ambulation. F/U as an out patient in 1-2 weeks
[2019-06-10] MEDS: SENNOSIDES 8.6MG TABLET (FP) PO SCH (21:29)
[2019-06-11] MEDS: ZIPRASIDONE 20 MG VIAL IM SCH ×3 (01:04→15:41)
[2019-06-11] MEDS: SERTRALINE HCL 50 MG TABLET (FP) PO SCH (08:02)
[2019-06-11] MEDS: LIOTHYRONINE SODIUM 25 MCG TABLET PO SCH (08:03)
[2019-06-11 09:12] LABS: BASO % 0.5 % (0-2.0); EOS % 1.9 % (0-4.5); HEMATOCRIT 40.5 % (32.4-45.2); HEMOGLOBIN 13.1 GM/dl (10.7-15.3); LYMPH % 7.1 % (8-40); MCH 31.8 pg (25.7-33.7); MCHC 32.4 g/dl (32.0-36.0); MEAN CELL VOLUME 98.3 fl (80-96); MEAN PLT VOLUME 8.6 fl (7.5-11.1); MONO % 6.3 % (3.8-10.2); NEUT % 84.2 % (42.8-82.8); PLATELET COUNT 187 K/MM3 (134-434); RBC 4.13 M/mm3 (3.60-5.2); RDW 14.9 % (11.6-15.6); WHITE BLOOD COUNT 10.1 K/mm3 (4.0-10.8)
[2019-06-11] MEDS ORDERED: DEXTROSE 5%-WATER 100 ML IVPB ONE ×2 (09:30→21:01)
[2019-06-11] MEDS ORDERED: MEROPENEM 1 GM VIAL (RESTRICTED TO ID) IVPB ONE ×2 (09:31→21:02)
[2019-06-11] MEDS: MINERAL OIL/PET HY-PHL TOPICAL OINTMENT 454 GM JAR TP SCH ×2 (09:35→21:33)
[2019-06-11] MEDS: BACITRACIN 15 GM TUBE TOPICAL OINTMENT TP SCH (09:35)
[2019-06-11] MEDS: MUPIROCIN 2% TOPICAL OINTMENT 22 GM TUBE TP SCH (09:36)
[2019-06-11] MEDS: MEROPENEM 1 GM in DEXTROSE 5%-WATER 100 ML IVPB SCH ×2 (09:37→21:32)
[2019-06-11] MEDS: ENOXAPARIN NA (PORCINE) 30 MG/0.3 ML DISP.SYRIN SQ SCH (09:37)
[2019-06-11] MEDS: NYSTATIN 100,000 UNIT/GM TOPICAL CREAM 15 GM TUBE TP SCH ×2 (09:38→21:33)
[2019-06-11 10:09] LABS: BILIRUBIN,TOTAL 0.6 mg/dl (0.2-1); CALCIUM 8.7 mg/dl (8.5-10); CREATININE 0.5 mg/dl (0.55-1.3); POTASSIUM 3.7 mmol/L (3.5-5.1); TOT PROT 5.6 g/dl (6.4-8.2)
--- NOTE | 2019-06-11 10:59 | PN ---
Physical Exam: SUBJECTIVE: Patient seen and examined, sitting in recliner, ate breakfast, c/o constipation, does not recall last BM colace, miralax added denies pain, sob OBJECTIVE: Vital Signs Period Temp Pulse Resp BP Sys/Miller Pulse Ox Last 24 Hr 97.8 F-98.9 F 80-98 17-21 142-171/84-97 93-100 GENERAL: The patient is awake, alert, and fully oriented, in no acute distress. HEAD: Normal with no signs of trauma. EYES: PERRL, extraocular movements intact, sclera anicteric, conjunctiva clear. No ptosis. ENT: Ears normal, nares patent, oropharynx clear without exudates, moist mucous membranes. NECK: Trachea midline, full range of motion, supple. LUNGS: Breath sounds equal, clear to auscultation bilaterally, no wheezes, no crackles, no accessory muscle use. HEART: Regular rate and rhythm, S1, S2 without murmur, rub or gallop. ABDOMEN: Soft, nontender, nondistended, normoactive bowel sounds, no guarding, no rebound, no hepatosplenomegaly, no masses. EXTREMITIES: 2+ pulses, warm, well-perfused, no edema. NEUROLOGICAL: Cranial nerves II through XII grossly intact. Normal speech, gait not observed. PSYCH: Normal mood, normal affect. SKIN: Warm, dry, normal turgor, knee abrasion noted on knees, Laboratory Results - last 24 hr 06/10/19 06/11/19 06/11/19 16:40 06:00 06:00 WBC 10.1 RBC 4.13 Hgb 13.1 Hct 40.5 MCV 98.3 H MCH 31.8 MCHC 32.4 RDW 14.9 Plt Count 187 MPV 8.6 Absolute Neuts (auto) 8.4 Neutrophils % 84.2 H Lymphocytes % 7.1 L Monocytes % 6.3 Eosinophils % 1.9 Basophils % 0.5 Sodium 138 Potassium 4.3 3.7 Chloride 102 Carbon Dioxide 28 Anion Gap 8 BUN 17.0 Creatinine 0.5 L Est GFR (CKD-EPI)AfAm 110.50 Est GFR (CKD-EPI)NonAf 95.34 Random Glucose 94 Calcium 8.7 Total Bilirubin 0.6 AST 20 ALT 20 Alkaline Phosphatase 85 Total Protein 5.6 L Albumin 3.0 L Active Medications Generic Name Dose Route Start Last Admin Trade Name Freq PRN Reason Stop Dose Admin Acetaminophen 500 mg 06/07/19 10:56 06/09/19 07:08 Ofirmev Injection - IVPB 500 mg Q6H PRN Administration FEVER Bacitracin 1 applic 05/29/19 18:45 06/11/19 09:35 Bacitracin - TP 1 applic DAILY [facility] Administration Bupropion HCl 300 mg 06/04/19 08:00 06/11/19 08:07 Wellbutrin Xl - PO 300 mg 0800 [facility] Administration Diltiazem HCl 180 mg 06/03/19 22:00 06/10/19 21:29 Cardizem Cd - PO 180 mg HS [facility] Administration Docusate Sodium 100 mg 06/11/19 10:55 Colace - PO BID PRN CONSTIPATION Emollient Ointment 1 applic 05/29/19 22:00 06/11/19 09:35 Aquaphor - TP 1 applic BID [facility] Administration Enoxaparin Sodium 30 mg 06/10/19 10:00 06/11/19 09:37 Lovenox - SQ 30 mg DAILY [facility] Administration Meropenem 1 gm/ Dextrose 100 mls @ 200 mls/hr 06/07/19 22:00 06/11/19 09:37 IVPB 200 mls/hr Q12H [facility] Administration Dextrose/Sodium Chloride 1,000 mls @ 50 mls/hr 06/08/19 23:30 06/10/19 12:58 D5-1/2ns - IV 50 mls/hr ASDIR [facility] Administration Vancomycin HCl 1,000 mg in 250 mls @ 166.667 mls/hr 06/09/19 15:30 06/10/19 15:32 Vancomycin (Pre-Docked) IVPB 166.667 mls/hr Q24H [facility] Administration Protocol Liothyronine Sodium 25 mcg 06/04/19 08:00 06/11/19 08:03 Cytomel - PO 25 mcg DAILY@0800 [facility] Administration Mupirocin 1 applic 05/29/19 14:15 06/11/19 09:36 Bactroban 2% Ointment - TP Not Given DAILY [facility] Nystatin 1 applic 05/31/19 22:00 06/11/19 09:38 Mycostatin Cream - TP 1 applic BID [facility] Administration Polyethylene Glycol 17 gm 06/11/19 11:00 Miralax (For Daily Use) - PO DAILY [facility] Senna 2 tab 05/30/19 22:00 06/10/19 21:29 Senna - PO 2 tab HS [facility] Administration Sertraline HCl 100 mg 06/04/19 08:00 06/11/19 08:02 Zoloft - PO 100 mg DAILY@0800 [facility] Administration Ziprasidone 20 mg 06/05/19 16:00 06/11/19 08:03 Geodon Injection - IM 20 mg Q8H [facility] Administration ASSESSMENT/PLAN: 73 year-old female with a PMH significant for schizo affective disorder, depression, degenerative disc disease, s/p left total hip replacement. Admitted following a fall at home and currently being treated for Sepsis and UTI. Severe sepsis secondary to E.coli UTI --repeat urine cx 06/07 no growth --ID Following- Dr. Izaguirre --continue meropenem (day #8) -- cont Vanco (day #4) Schizoaffective disorder --episodes of agitation previously observed but patient is currently resting comfortably, muscle rigidity, non purposeful movements are decreased on the increased dose of geodon ; --NO ATIVAN as it leads to oversedation and respiratory depression --continue bupropion, sertraline, liothyronine Hypertension --continue cardizem CD 180mg daily --cardiology following, Seen by Dr. Clark: BP goal range -150/90 Hypokalemia-resolved --KCl 40meq x 2 given -- goal K>4 --40 meq kcl ordered today Compression fractures, chronic --ortho consult: no surgical intervention, weight-bearing as tolerated, PT Fungal dermatitis --Nystatin cream Peripheral vascular disease --chronic venous stasis changes Knee abrasions, improved --present on admission --mupirocin Prolonged QT interval --on anti-psychotic meds; avoid additional QT prolonging agents --keep K>4, Mg>2 Severe protein calorie malnutrition --BMI 14.8, severe depletion of subq fat and muscle mass in the orbital, temporal and clavicular regions --no dysphagia, has good appetite, possible peg tube in future FEN Fluids: D5 1/2NS @ 50ml/hr 1000ml Electrolytes: replete as indicated Nutrition: Regular Diet- patient has had a barium swallow, has no difficulty swallowing and when she is awake, she has a very good appetite; when she is more somnolent, or if she is her meals are not supervised, she falls behind on calories; dietary has calculated her tube feeds needs but have deferred starting tube feeds until now; may eventually need a PEG but that issue will have to be addressed with the family and the health care proxy Claudia Manley DVT prophylaxis: Lovenox 30mg Daily Physical therapy Dispo: continues to require inpatient care. Full code Visit type - Emergency Visit Emergency Visit: Yes ED Registration Date: 05/28/19 Care time: The patient presented to the Emergency Department on the above date and was hospitalized for further evaluation of their emergent condition. - New Patient This patient is new to me today: Yes Date on this admission: 06/11/19 - Critical Care Critical Care patient: No
[2019-06-11] MEDS: POLYETHYLENE GLYCOL 3350 119 GM BTL PO SCH (11:55)
[2019-06-11] MEDS: DOCUSATE SODIUM 100 MG CAPSULE (FP) PO PRN ×2 (11:56→21:32)
[2019-06-11] MEDS ORDERED: POTASSIUM CHLORIDE TABS 20 MEQ TABLET.ER (FP) PO ONE (12:04)
--- NOTE | 2019-06-11 13:17 | PN ---
Progress Note, Physician History of Present Illness: patient looks much more better doing well had diet says she feels good - Current Medication List Current Medications: Active Medications Acetaminophen (Ofirmev Injection -) 500 mg IVPB Q6H PRN PRN Reason: FEVER Last Admin: 06/09/19 07:08 Dose: 500 mg Bacitracin (Bacitracin -) 1 applic TP DAILY [facility] Last Admin: 06/11/19 09:35 Dose: 1 applic Bupropion HCl (Wellbutrin Xl -) 300 mg PO 0800 [facility] Last Admin: 06/11/19 08:07 Dose: 300 mg Diltiazem HCl (Cardizem Cd -) 180 mg PO HS [facility] Last Admin: 06/10/19 21:29 Dose: 180 mg Docusate Sodium (Colace -) 100 mg PO BID PRN PRN Reason: CONSTIPATION Last Admin: 06/11/19 11:56 Dose: 100 mg Emollient Ointment (Aquaphor -) 1 applic TP BID [facility] Last Admin: 06/11/19 09:35 Dose: 1 applic Enoxaparin Sodium (Lovenox -) 30 mg SQ DAILY [facility] Last Admin: 06/11/19 09:37 Dose: 30 mg Meropenem 1 gm/ Dextrose 100 mls @ 200 mls/hr IVPB Q12H [facility] Last Admin: 06/11/19 09:37 Dose: 200 mls/hr Dextrose/Sodium Chloride (D5-1/2ns -) 1,000 mls @ 50 mls/hr IV ASDIR [facility] Last Admin: 06/10/19 12:58 Dose: 50 mls/hr Vancomycin HCl (Vancomycin (Pre-Docked)) 1,000 mg in 250 mls @ 166.667 mls/hr IVPB Q24H [facility]; Protocol Last Admin: 06/10/19 15:32 Dose: 166.667 mls/hr Liothyronine Sodium (Cytomel -) 25 mcg PO DAILY@0800 [facility] Last Admin: 06/11/19 08:03 Dose: 25 mcg Mupirocin (Bactroban 2% Ointment -) 1 applic TP DAILY [facility] Last Admin: 06/11/19 09:36 Dose: Not Given Nystatin (Mycostatin Cream -) 1 applic TP BID [facility] Last Admin: 06/11/19 09:38 Dose: 1 applic Polyethylene Glycol (Miralax (For Daily Use) -) 17 gm PO DAILY [facility] Last Admin: 06/11/19 11:55 Dose: 17 grams Senna (Senna -) 2 tab PO HS [facility] Last Admin: 06/10/19 21:29 Dose: 2 tab Sertraline HCl (Zoloft -) 100 mg PO DAILY@0800 [facility] Last Admin: 06/11/19 08:02 Dose: 100 mg Ziprasidone (Geodon Injection -) 20 mg IM Q8H [facility] Last Admin: 06/11/19 08:03 Dose: 20 mg - Objective Vital Signs: Vital Signs Temperature 98.3 F 06/11/19 06:00 Pulse Rate 81 06/11/19 06:00 Respiratory Rate 17 06/11/19 06:00 Blood Pressure 154/84 06/11/19 06:00 O2 Sat by Pulse Oximetry (%) 99 06/11/19 08:30 Constitutional: Yes: No Distress, Calm, Thin, Other (failure to thrive) Cardiovascular: Yes: S1, S2 Respiratory: Yes: Regular, Poor Air Entry Gastrointestinal: Yes: Normal Bowel Sounds, Soft Musculoskeletal: Yes: WNL Extremities: Yes: WNL Neurological: Yes: Alert, Oriented Psychiatric: Yes: Alert, Oriented Labs: CBC, BMP 06/11/19 06:00 06/11/19 06:00 Assessment/Plan 73 year-old female with a PMH significant for schizoaffective disorder, depression, degenerative disc disease, s/p left total hip replacement. Admitted following a fall at home. fever uti weakness plan continue abx asp precautions nutrition rest as per the team
[2019-06-11] MEDS: VANCOMYCIN 1 GRAM (PRE-DOCKED) 1,000 MG/250 ML BAG IVPB SCH (14:51)
[2019-06-11] MEDS: SENNOSIDES 8.6MG TABLET (FP) PO SCH (21:32)
[2019-06-12] MEDS: ZIPRASIDONE 20 MG VIAL IM SCH ×3 (00:17→15:43)
--- NOTE | 2019-06-12 07:50 | PN ---
Physical Exam: SUBJECTIVE: Patient seen and examined; she is a 73 year-old female with a PMH significant for schizoaffective disorder, depression, degenerative disc disease , s/p left total hip replacement. Being seen by COY CASEY. Discussed case with indicated consultants. No new issues per nursing and remains stable. 10 sys ROS done and negative aside from HPI OBJECTIVE: Vital Signs Period Temp Pulse Resp BP Sys/Miller Pulse Ox Last 24 Hr 97.7 F-98.5 F 76-89 16-20 121-176/80-97 97-100 GENERAL: The patient is awake, alert, and fully oriented, in no acute distress. HEAD: Normal with no signs of trauma. EYES: PERRL, extraocular movements intact, sclera anicteric, conjunctiva clear. No ptosis. ENT: Ears normal, nares patent, oropharynx clear without exudates, moist mucous membranes. NECK: Trachea midline, full range of motion, supple. LUNGS: Breath sounds equal, clear to auscultation bilaterally, no wheezes] HEART: Regular rate and rhythm, S1, S2 without murmur, rub or gallop. ABDOMEN: Soft, nontender, nondistended, normoactive bowel sounds, no guarding\ EXTREMITIES: 2+ pulses, warm, well-perfused, no edema. NEUROLOGICAL: Cranial nerves II through XII grossly intact. Normal speech, gait not observed. PSYCH: Normal mood, normal affect. SKIN: Warm, dry, normal turgor, no rashes or lesions noted Laboratory Results - last 24 hr 06/11/19 06/11/19 06/11/19 06:00 06:00 14:15 WBC 10.1 RBC 4.13 Hgb 13.1 Hct 40.5 MCV 98.3 H MCH 31.8 MCHC 32.4 RDW 14.9 Plt Count 187 MPV 8.6 Absolute Neuts (auto) 8.4 Neutrophils % 84.2 H Lymphocytes % 7.1 L Monocytes % 6.3 Eosinophils % 1.9 Basophils % 0.5 Sodium 138 Potassium 3.7 Chloride 102 Carbon Dioxide 28 Anion Gap 8 BUN 17.0 Creatinine 0.5 L Est GFR (CKD-EPI)AfAm 110.50 Est GFR (CKD-EPI)NonAf 95.34 Random Glucose 94 Calcium 8.7 Total Bilirubin 0.6 AST 20 ALT 20 Alkaline Phosphatase 85 Total Protein 5.6 L Albumin 3.0 L Vancomycin Pre-Dose 8.8 L Active Medications Generic Name Dose Route Start Last Admin Trade Name Freq PRN Reason Stop Dose Admin Acetaminophen 500 mg 06/07/19 10:56 06/09/19 07:08 Ofirmev Injection - IVPB 500 mg Q6H PRN Administration FEVER Bacitracin 1 applic 05/29/19 18:45 06/11/19 09:35 Bacitracin - TP 1 applic DAILY [facility] Administration Bupropion HCl 300 mg 06/04/19 08:00 06/11/19 08:07 Wellbutrin Xl - PO 300 mg 0800 [facility] Administration Diltiazem HCl 180 mg 06/03/19 22:00 06/11/19 21:32 Cardizem Cd - PO 180 mg HS [facility] Administration Docusate Sodium 100 mg 06/11/19 10:55 06/11/19 21:32 Colace - PO 100 mg BID PRN Administration CONSTIPATION Emollient Ointment 1 applic 05/29/19 22:00 06/11/19 21:33 Aquaphor - TP 1 applic BID [facility] Administration Enoxaparin Sodium 30 mg 06/10/19 10:00 06/11/19 09:37 Lovenox - SQ 30 mg DAILY [facility] Administration Meropenem 1 gm/ Dextrose 100 mls @ 200 mls/hr 06/07/19 22:00 06/11/19 21:32 IVPB 200 mls/hr Q12H [facility] Administration Dextrose/Sodium Chloride 1,000 mls @ 50 mls/hr 06/08/19 23:30 06/10/19 12:58 D5-1/2ns - IV 50 mls/hr ASDIR [facility] Administration Vancomycin HCl 1,000 mg in 250 mls @ 166.667 mls/hr 06/09/19 15:30 06/11/19 14:51 Vancomycin (Pre-Docked) IVPB 166.667 mls/hr Q24H [facility] Administration Protocol Liothyronine Sodium 25 mcg 06/04/19 08:00 06/11/19 08:03 Cytomel - PO 25 mcg DAILY@0800 [facility] Administration Mupirocin 1 applic 05/29/19 14:15 06/11/19 09:36 Bactroban 2% Ointment - TP Not Given DAILY [facility] Nystatin 1 applic 05/31/19 22:00 06/11/19 21:33 Mycostatin Cream - TP 1 applic BID [facility] Administration Polyethylene Glycol 17 gm 06/11/19 11:00 06/11/19 11:55 Miralax (For Daily Use) - PO 17 grams DAILY [facility] Administration Senna 2 tab 05/30/19 22:00 06/11/19 21:32 Senna - PO 2 tab HS [facility] Administration Sertraline HCl 100 mg 06/04/19 08:00 06/11/19 08:02 Zoloft - PO 100 mg DAILY@0800 [facility] Administration Ziprasidone 20 mg 06/05/19 16:00 06/12/19 00:17 Geodon Injection - IM 20 mg Q8H [facility] Administration Microbiology 06/07/19 09:10 Blood Culture - Final Blood - Peripheral Venous NO GROWTH AFTER 5 DAYS INCUBATION 06/07/19 09:10 Blood Culture - Final Blood - Peripheral Venous NO GROWTH AFTER 5 DAYS INCUBATION ASSESSMENT/PLAN: 73 year-old female with a PMH significant for schizo affective disorder, depression, degenerative disc disease, s/p left total hip replacement. Admitted following a fall at home and currently being treated for Sepsis and UTI. Sepsis 2/2 Ecoli UTI (improved sepsis; IV abx per ID, micro reviewed) Schizoaffective disorder (Continue bupropion, sertraline, liothyronine; no adverse effects or agitation noted. Avoiding BZDs) Hypertension (C/w current meds; d/w CV) Hypokalemia-improved; trending Compression fractures, (chronic; no surgical intervention, weight-bearing as tolerated, PT) Fungal dermatitis (C/W Nystatin) Peripheral vascular disease (Refer to Dr. Eller, check arterial dopplers as OP) Prolonged QT interval (on anti-psychotic meds; avoid additional QT prolonging agents; keep K>4, Mg>2. Consider repeating EKG prior to DC) Severe protein calorie malnutrition (PEG Eval prior to DC; consulting nutrition for recs first) Failure to thrive (due to multiple medical comorbidities) DVT prophylaxis: Lovenox 30mg Daily Physical therapy Dispo: continues to require inpatient care. Full code Visit type - Emergency Visit Emergency Visit: Yes ED Registration Date: 05/28/19 Care time: The patient presented to the Emergency Department on the above date and was hospitalized for further evaluation of their emergent condition. - New Patient This patient is new to me today: Yes Date on this admission: 06/12/19 - Critical Care Critical Care patient: No
[2019-06-12] MEDS: SERTRALINE HCL 50 MG TABLET (FP) PO SCH (08:06)
[2019-06-12] MEDS: LIOTHYRONINE SODIUM 25 MCG TABLET PO SCH (08:09)
[2019-06-12 08:18] LABS: BASO % 0.5 % (0-2.0); EOS % 1.6 % (0-4.5); HEMOGLOBIN 13.3 GM/dl (10.7-15.3); LYMPH % 9.7 % (8-40); MCH 32.3 pg (25.7-33.7); MCHC 33.2 g/dl (32.0-36.0); MEAN CELL VOLUME 97.2 fl (80-96); MEAN PLT VOLUME 8.4 fl (7.5-11.1); MONO % 6.2 % (3.8-10.2); PLATELET COUNT 220 K/MM3 (134-434); RBC 4.12 M/mm3 (3.60-5.2); RDW 14.2 % (11.6-15.6); WHITE BLOOD COUNT 10.7 K/mm3 (4.0-10.8)
[2019-06-12 08:22] LABS: ALBUMIN 3.1 g/dl (3.4-5.0); BILIRUBIN,TOTAL 0.6 mg/dl (0.2-1); CALCIUM 8.6 mg/dl (8.5-10); CREATININE 0.5 mg/dl (0.55-1.3); MAGNESIUM 2.4 mg/dL (1.8-2.4); POTASSIUM 4.1 mmol/L (3.5-5.1); TOT PROT 5.8 g/dl (6.4-8.2)
[2019-06-12] MEDS ORDERED: DEXTROSE 5%-WATER 100 ML IVPB ONE ×2 (09:24→20:53)
[2019-06-12] MEDS ORDERED: MEROPENEM 1 GM VIAL (RESTRICTED TO ID) IVPB ONE ×2 (09:24→20:53)
[2019-06-12] MEDS: ENOXAPARIN NA (PORCINE) 30 MG/0.3 ML DISP.SYRIN SQ SCH (10:27)
[2019-06-12] MEDS: MEROPENEM 1 GM in DEXTROSE 5%-WATER 100 ML IVPB SCH ×2 (10:27→21:14)
[2019-06-12] MEDS: POLYETHYLENE GLYCOL 3350 119 GM BTL PO SCH (10:28)
[2019-06-12] MEDS: MINERAL OIL/PET HY-PHL TOPICAL OINTMENT 454 GM JAR TP SCH ×2 (10:28→21:16)
[2019-06-12] MEDS: MUPIROCIN 2% TOPICAL OINTMENT 22 GM TUBE TP SCH (10:29)
[2019-06-12] MEDS: NYSTATIN 100,000 UNIT/GM TOPICAL CREAM 15 GM TUBE TP SCH ×2 (10:29→21:16)
[2019-06-12] MEDS: BACITRACIN 15 GM TUBE TOPICAL OINTMENT TP SCH (10:30)
--- NOTE | 2019-06-12 13:59 | PN ---
Progress Note (short form) - Note Progress Note: s: confused, not answering questions appropriately. appears comfortable. Current Medications Acetaminophen (Ofirmev Injection -) 500 mg IVPB Q6H PRN PRN Reason: FEVER Last Admin: 06/09/19 07:08 Dose: 500 mg Bacitracin (Bacitracin -) 1 applic TP DAILY [facility] Last Admin: 06/12/19 10:30 Dose: 1 applic Bupropion HCl (Wellbutrin Xl -) 300 mg PO 0800 [facility] Last Admin: 06/12/19 08:12 Dose: 300 mg Diltiazem HCl (Cardizem Cd -) 180 mg PO HS [facility] Last Admin: 06/11/19 21:32 Dose: 180 mg Docusate Sodium (Colace -) 100 mg PO BID PRN PRN Reason: CONSTIPATION Last Admin: 06/11/19 21:32 Dose: 100 mg Emollient Ointment (Aquaphor -) 1 applic TP BID [facility] Last Admin: 06/12/19 10:28 Dose: 1 applic Enoxaparin Sodium (Lovenox -) 30 mg SQ DAILY [facility] Last Admin: 06/12/19 10:27 Dose: 30 mg Meropenem 1 gm/ Dextrose 100 mls @ 200 mls/hr IVPB Q12H [facility] Last Admin: 06/12/19 10:27 Dose: 200 mls/hr Dextrose/Sodium Chloride (D5-1/2ns -) 1,000 mls @ 50 mls/hr IV ASDIR [facility] Last Admin: 06/10/19 12:58 Dose: 50 mls/hr Vancomycin HCl (Vancomycin (Pre-Docked)) 1,000 mg in 250 mls @ 166.667 mls/hr IVPB Q24H [facility]; Protocol Last Admin: 06/11/19 14:51 Dose: 166.667 mls/hr Liothyronine Sodium (Cytomel -) 25 mcg PO DAILY@0800 [facility] Last Admin: 06/12/19 08:09 Dose: 25 mcg Mupirocin (Bactroban 2% Ointment -) 1 applic TP DAILY [facility] Last Admin: 06/12/19 10:29 Dose: 1 applic Nystatin (Mycostatin Cream -) 1 applic TP BID [facility] Last Admin: 06/12/19 10:29 Dose: 1 applic Polyethylene Glycol (Miralax (For Daily Use) -) 17 gm PO DAILY [facility] Last Admin: 06/12/19 10:28 Dose: 17 grams Senna (Senna -) 2 tab PO HS [facility] Last Admin: 06/11/19 21:32 Dose: 2 tab Sertraline HCl (Zoloft -) 100 mg PO DAILY@0800 [facility] Last Admin: 06/12/19 08:06 Dose: 100 mg Ziprasidone (Geodon Injection -) 20 mg IM Q8H [facility] Last Admin: 06/12/19 08:09 Dose: 20 mg Vital Signs Period Temp Pulse Resp BP Sys/Miller Pulse Ox Last 24 Hr 97.5 F-98.5 F 76-92 18-20 121-176/74-97 97-100 Constitutional: Yes: No Distress, Thin Eyes: Yes: Conjunctiva Clear Cardiovascular: Yes: Regular Rate and Rhythm Respiratory: Yes: CTA Bilaterally Gastrointestinal: Yes: Soft (NT) Edema: No Neurological: Yes: Alert no jaundice diaphoresis Assessment/Plan echo 05/2019: mild lvh, nl lvef, nl rv, mild tr, nl rvsp cxr: clear lungs ecg: sr nl intervals no ischemic changes a/p: 73 f hx hyperthyroid,dementia, depression, anxiety here s/p fall with UTI , persistent fevers and now CT showing intrahepatic ductal dilatation. Fevers UTI: -abx per primary -Serial cultures - manage per ID Fall: -seems mechanical -echo and tele benign -pt/rehab eval HTN: the goal for age group is 150/90 -overall acceptable BP -continue dilt -would be cautious in aggressively treating BP in setting of infection/sepsis Sinus Tachycardia: improved -likely related to psych issues and psych med adjustments as well as fever/ infection -ecg, tsh, tele benign
--- NOTE | 2019-06-12 14:29 | PN ---
Progress Note, Physician History of Present Illness: stable no new issues remaining afebrile - Current Medication List Current Medications: Active Medications Acetaminophen (Ofirmev Injection -) 500 mg IVPB Q6H PRN PRN Reason: FEVER Last Admin: 06/09/19 07:08 Dose: 500 mg Bacitracin (Bacitracin -) 1 applic TP DAILY [facility] Last Admin: 06/12/19 10:30 Dose: 1 applic Bupropion HCl (Wellbutrin Xl -) 300 mg PO 0800 [facility] Last Admin: 06/12/19 08:12 Dose: 300 mg Diltiazem HCl (Cardizem Cd -) 180 mg PO HS [facility] Last Admin: 06/11/19 21:32 Dose: 180 mg Docusate Sodium (Colace -) 100 mg PO BID PRN PRN Reason: CONSTIPATION Last Admin: 06/11/19 21:32 Dose: 100 mg Emollient Ointment (Aquaphor -) 1 applic TP BID [facility] Last Admin: 06/12/19 10:28 Dose: 1 applic Enoxaparin Sodium (Lovenox -) 30 mg SQ DAILY [facility] Last Admin: 06/12/19 10:27 Dose: 30 mg Meropenem 1 gm/ Dextrose 100 mls @ 200 mls/hr IVPB Q12H [facility] Last Admin: 06/12/19 10:27 Dose: 200 mls/hr Dextrose/Sodium Chloride (D5-1/2ns -) 1,000 mls @ 50 mls/hr IV ASDIR [facility] Last Admin: 06/10/19 12:58 Dose: 50 mls/hr Vancomycin HCl (Vancomycin (Pre-Docked)) 1,000 mg in 250 mls @ 166.667 mls/hr IVPB Q24H [facility]; Protocol Last Admin: 06/11/19 14:51 Dose: 166.667 mls/hr Liothyronine Sodium (Cytomel -) 25 mcg PO DAILY@0800 [facility] Last Admin: 06/12/19 08:09 Dose: 25 mcg Mupirocin (Bactroban 2% Ointment -) 1 applic TP DAILY [facility] Last Admin: 06/12/19 10:29 Dose: 1 applic Nystatin (Mycostatin Cream -) 1 applic TP BID [facility] Last Admin: 06/12/19 10:29 Dose: 1 applic Polyethylene Glycol (Miralax (For Daily Use) -) 17 gm PO DAILY [facility] Last Admin: 06/12/19 10:28 Dose: 17 grams Senna (Senna -) 2 tab PO HS [facility] Last Admin: 06/11/19 21:32 Dose: 2 tab Sertraline HCl (Zoloft -) 100 mg PO DAILY@0800 [facility] Last Admin: 06/12/19 08:06 Dose: 100 mg Ziprasidone (Geodon Injection -) 20 mg IM Q8H [facility] Last Admin: 06/12/19 08:09 Dose: 20 mg - Objective Vital Signs: Vital Signs Temperature 97.6 F 06/12/19 13:58 Pulse Rate 92 H 06/12/19 13:58 Respiratory Rate 18 06/12/19 13:58 Blood Pressure 151/82 06/12/19 13:58 O2 Sat by Pulse Oximetry (%) 98 06/12/19 13:58 Constitutional: Yes: No Distress, Calm, Other (failure to thrive) Cardiovascular: Yes: S1, S2 Respiratory: Yes: Regular, CTA Bilaterally Gastrointestinal: Yes: Normal Bowel Sounds, Soft Musculoskeletal: Yes: WNL Extremities: Yes: Other Neurological: Yes: Alert, Other Psychiatric: Yes: Alert, Other Labs: CBC, BMP 06/12/19 07:05 06/12/19 07:05 Assessment/Plan 73 year-old female with a PMH significant for schizoaffective disorder, depression, degenerative disc disease, s/p left total hip replacement. Admitted following a fall at home. fever uti weakness plan continue abx asp precautions nutrition rest as per the team
[2019-06-12] MEDS: VANCOMYCIN 1 GRAM (PRE-DOCKED) 1,000 MG/250 ML BAG IVPB SCH (14:37)
[2019-06-12] MEDS: DOCUSATE SODIUM 100 MG CAPSULE (FP) PO PRN (21:13)
[2019-06-12] MEDS: SENNOSIDES 8.6MG TABLET (FP) PO SCH (21:14)
[2019-06-12] MEDS: DEXTROSE 5%-0.45% SALINE 1,000 ML IV SCH (21:15)
[2019-06-13] MEDS: ZIPRASIDONE 20 MG VIAL IM SCH ×4 (00:32→23:44)
[2019-06-13] MEDS: DEXTROSE 5%-0.45% SALINE 1,000 ML IV SCH (00:35)
[2019-06-13] MEDS: SERTRALINE HCL 50 MG TABLET (FP) PO SCH (07:17)
[2019-06-13] MEDS: LIOTHYRONINE SODIUM 25 MCG TABLET PO SCH (07:18)
[2019-06-13 07:32] LABS: BASO % 0.5 % (0-2.0); EOS % 1.3 % (0-4.5); RDW 14.3 % (11.6-15.6)
[2019-06-13 07:35] LABS: HEMATOCRIT 40.7 % (32.4-45.2); HEMOGLOBIN 13.3 GM/dl (10.7-15.3); LYMPH % 7.7 % (8-40); MCH 31.9 pg (25.7-33.7); MCHC 32.7 g/dl (32.0-36.0); MEAN CELL VOLUME 97.6 fl (80-96); MONO % 6.6 % (3.8-10.2); NEUT % 83.9 % (42.8-82.8); PLATELET COUNT 261 K/MM3 (134-434); RBC 4.17 M/mm3 (3.60-5.2); WHITE BLOOD COUNT 11.8 K/mm3 (4.0-10.8)
[2019-06-13 08:01] LABS: ALBUMIN 3.1 g/dl (3.4-5.0); BILIRUBIN,TOTAL 0.7 mg/dl (0.2-1); CREATININE 0.5 mg/dl (0.55-1.3); MAGNESIUM 2.4 mg/dL (1.8-2.4); PHOSPHOROUS 2.8 mg/dl (2.5-4.9); POTASSIUM 3.8 mmol/L (3.5-5.1); TOT PROT 5.8 g/dl (6.4-8.2)
[2019-06-13] MEDS ORDERED: DEXTROSE 5%-WATER 100 ML IVPB ONE ×2 (08:21→21:05)
[2019-06-13] MEDS ORDERED: MEROPENEM 1 GM VIAL (RESTRICTED TO ID) IVPB ONE ×2 (08:21→21:05)
[2019-06-13] MEDS: MEROPENEM 1 GM in DEXTROSE 5%-WATER 100 ML IVPB SCH ×2 (09:06→21:22)
[2019-06-13] MEDS: POLYETHYLENE GLYCOL 3350 119 GM BTL PO SCH ×2 (09:06→21:24)
[2019-06-13] MEDS: NYSTATIN 100,000 UNIT/GM TOPICAL CREAM 15 GM TUBE TP SCH ×2 (09:06→21:23)
[2019-06-13] MEDS: MINERAL OIL/PET HY-PHL TOPICAL OINTMENT 454 GM JAR TP SCH ×2 (09:07→21:22)
[2019-06-13] MEDS: BACITRACIN 15 GM TUBE TOPICAL OINTMENT TP SCH (09:07)
[2019-06-13] MEDS: MUPIROCIN 2% TOPICAL OINTMENT 22 GM TUBE TP SCH (09:08)
[2019-06-13] MEDS: ENOXAPARIN NA (PORCINE) 30 MG/0.3 ML DISP.SYRIN SQ SCH (09:08)
[2019-06-13 11:12] LABS: VITAMIN E (B-GAMMA) 1.2 MG/ML (0.5-4.9)
--- NOTE | 2019-06-13 12:16 | PN ---
Progress Note (short form) - Note Progress Note: s: no chest pain, palps, dizziness, dyspnea Current Medications Acetaminophen (Ofirmev Injection -) 500 mg IVPB Q6H PRN PRN Reason: FEVER Last Admin: 06/09/19 07:08 Dose: 500 mg Bacitracin (Bacitracin -) 1 applic TP DAILY [facility] Last Admin: 06/13/19 09:07 Dose: 1 applic Bupropion HCl (Wellbutrin Xl -) 300 mg PO 0800 [facility] Last Admin: 06/13/19 07:17 Dose: 300 mg Diltiazem HCl (Cardizem Cd -) 180 mg PO HS [facility] Last Admin: 06/12/19 21:13 Dose: 180 mg Docusate Sodium (Colace -) 100 mg PO BID PRN PRN Reason: CONSTIPATION Last Admin: 06/12/19 21:13 Dose: 100 mg Emollient Ointment (Aquaphor -) 1 applic TP BID [facility] Last Admin: 06/13/19 09:07 Dose: 1 applic Enoxaparin Sodium (Lovenox -) 30 mg SQ DAILY [facility] Last Admin: 06/13/19 09:08 Dose: 30 mg Meropenem 1 gm/ Dextrose 100 mls @ 200 mls/hr IVPB Q12H [facility] Last Admin: 06/13/19 09:06 Dose: 200 mls/hr Dextrose/Sodium Chloride (D5-1/2ns -) 1,000 mls @ 50 mls/hr IV ASDIR [facility] Last Admin: 06/13/19 00:35 Dose: 50 mls/hr Vancomycin HCl (Vancomycin (Pre-Docked)) 1,000 mg in 250 mls @ 166.667 mls/hr IVPB Q24H [facility]; Protocol Last Admin: 06/12/19 14:37 Dose: 166.667 mls/hr Liothyronine Sodium (Cytomel -) 25 mcg PO DAILY@0800 [facility] Last Admin: 06/13/19 07:18 Dose: 25 mcg Mupirocin (Bactroban 2% Ointment -) 1 applic TP DAILY [facility] Last Admin: 06/13/19 09:08 Dose: 1 applic Nystatin (Mycostatin Cream -) 1 applic TP BID [facility] Last Admin: 06/13/19 09:06 Dose: 1 applic Polyethylene Glycol (Miralax (For Daily Use) -) 17 gm PO DAILY [facility] Last Admin: 06/13/19 09:06 Dose: 17 grams Senna (Senna -) 2 tab PO HS [facility] Last Admin: 06/12/19 21:14 Dose: 2 tab Sertraline HCl (Zoloft -) 100 mg PO DAILY@0800 [facility] Last Admin: 06/13/19 07:17 Dose: 100 mg Ziprasidone (Geodon Injection -) 20 mg IM Q8H [facility] Last Admin: 06/13/19 07:18 Dose: 20 mg Vital Signs Period Temp Pulse Resp BP Sys/Miller Pulse Ox Last 24 Hr 97.4 F-98.4 F 77-92 18-20 121-155/60-95 95-100 Constitutional: Yes: No Distress, Thin Eyes: Yes: Conjunctiva Clear Cardiovascular: Yes: Regular Rate and Rhythm Respiratory: Yes: CTA Bilaterally Gastrointestinal: Yes: Soft (NT) Edema: No Neurological: Yes: Alert no jaundice diaphoresis Assessment/Plan echo 05/2019: mild lvh, nl lvef, nl rv, mild tr, nl rvsp cxr: clear lungs ecg: sr nl intervals no ischemic changes a/p: 73 f hx hyperthyroid,dementia, depression, anxiety here s/p fall with UTI , persistent fevers and now CT showing intrahepatic ductal dilatation. Fevers UTI: -abx per primary -Serial cultures - manage per ID Fall: -seems mechanical -echo and tele benign -pt/rehab eval HTN: the goal for age group is 150/90 -overall acceptable BP -continue dilt -would be cautious in aggressively treating BP in setting of infection/sepsis Sinus Tachycardia: improved -likely related to psych issues and psych med adjustments as well as fever/ infection -ecg, tsh, tele benign
--- NOTE | 2019-06-13 13:42 | PN ---
Progress Note, Physician History of Present Illness: stable doing well - Current Medication List Current Medications: Active Medications Acetaminophen (Ofirmev Injection -) 500 mg IVPB Q6H PRN PRN Reason: FEVER Last Admin: 06/09/19 07:08 Dose: 500 mg Bacitracin (Bacitracin -) 1 applic TP DAILY [facility] Last Admin: 06/13/19 09:07 Dose: 1 applic Bupropion HCl (Wellbutrin Xl -) 300 mg PO 0800 [facility] Last Admin: 06/13/19 07:17 Dose: 300 mg Diltiazem HCl (Cardizem Cd -) 180 mg PO HS [facility] Last Admin: 06/12/19 21:13 Dose: 180 mg Docusate Sodium (Colace -) 100 mg PO BID PRN PRN Reason: CONSTIPATION Last Admin: 06/12/19 21:13 Dose: 100 mg Emollient Ointment (Aquaphor -) 1 applic TP BID [facility] Last Admin: 06/13/19 09:07 Dose: 1 applic Enoxaparin Sodium (Lovenox -) 30 mg SQ DAILY [facility] Last Admin: 06/13/19 09:08 Dose: 30 mg Meropenem 1 gm/ Dextrose 100 mls @ 200 mls/hr IVPB Q12H [facility] Last Admin: 06/13/19 09:06 Dose: 200 mls/hr Dextrose/Sodium Chloride (D5-1/2ns -) 1,000 mls @ 50 mls/hr IV ASDIR [facility] Last Admin: 06/13/19 00:35 Dose: 50 mls/hr Vancomycin HCl (Vancomycin (Pre-Docked)) 1,000 mg in 250 mls @ 166.667 mls/hr IVPB Q24H [facility]; Protocol Last Admin: 06/12/19 14:37 Dose: 166.667 mls/hr Liothyronine Sodium (Cytomel -) 25 mcg PO DAILY@0800 [facility] Last Admin: 06/13/19 07:18 Dose: 25 mcg Mupirocin (Bactroban 2% Ointment -) 1 applic TP DAILY [facility] Last Admin: 06/13/19 09:08 Dose: 1 applic Nystatin (Mycostatin Cream -) 1 applic TP BID [facility] Last Admin: 06/13/19 09:06 Dose: 1 applic Polyethylene Glycol (Miralax (For Daily Use) -) 17 gm PO DAILY [facility] Last Admin: 06/13/19 09:06 Dose: 17 grams Senna (Senna -) 2 tab PO HS [facility] Last Admin: 06/12/19 21:14 Dose: 2 tab Sertraline HCl (Zoloft -) 100 mg PO DAILY@0800 [facility] Last Admin: 06/13/19 07:17 Dose: 100 mg Ziprasidone (Geodon Injection -) 20 mg IM Q8H [facility] Last Admin: 06/13/19 07:18 Dose: 20 mg - Objective Vital Signs: Vital Signs Temperature 97.4 F L 06/13/19 10:20 Pulse Rate 87 06/13/19 10:20 Respiratory Rate 18 06/13/19 10:20 Blood Pressure 150/84 06/13/19 11:20 O2 Sat by Pulse Oximetry (%) 100 06/13/19 10:21 Constitutional: Yes: No Distress, Calm Cardiovascular: Yes: S1, S2 Respiratory: Yes: Regular, CTA Bilaterally Gastrointestinal: Yes: Normal Bowel Sounds, Soft Musculoskeletal: Yes: WNL Extremities: Yes: WNL Neurological: Yes: Alert, Oriented Psychiatric: Yes: Alert, Oriented Labs: CBC, BMP 06/13/19 07:08 06/13/19 07:08 Assessment/Plan 73 year-old female with a PMH significant for schizoaffective disorder, depression, degenerative disc disease, s/p left total hip replacement. Admitted following a fall at home. fever uti weakness plan continue abx asp precautions nutrition rest as per the team will deescalte vanc tomorrow
--- NOTE | 2019-06-13 14:26 | PN ---
Physical Exam: SUBJECTIVE: Patient seen and examined at bedside. OBJECTIVE: Vital Signs Period Temp Pulse Resp BP Sys/Miller Pulse Ox Last 24 Hr 97.4 F-98.4 F 77-92 16-20 121-155/60-95 95-100 GENERAL: The patient is awake, alert. Making good eye contact. Responding to questions. LUNGS: CTA HEART: Regular rate and rhythm, S1, S2 ABDOMEN: Soft, nontender, nondistended, normoactive bowel sounds EXTREMITIES: 2+ pulses, warm, well-perfused, no edema. NEUROLOGICAL: Cranial nerves II through XII grossly intact. Normal speech, gait not observed. Laboratory Results - last 24 hr 06/02/19 06/13/19 06/13/19 06:55 07:08 07:08 WBC 11.8 H RBC 4.17 Hgb 13.3 Hct 40.7 MCV 97.6 H MCH 31.9 MCHC 32.7 RDW 14.3 Plt Count 261 MPV 8.0 Absolute Neuts (auto) 9.8 Neutrophils % 83.9 H Lymphocytes % 7.7 L Monocytes % 6.6 Eosinophils % 1.3 Basophils % 0.5 Sodium 137 Potassium 3.8 Chloride 100 Carbon Dioxide 30 Anion Gap 7 L BUN 19.0 H Creatinine 0.5 L Est GFR (CKD-EPI)AfAm 110.50 Est GFR (CKD-EPI)NonAf 95.34 Random Glucose 100 Calcium 9.0 Phosphorus 2.8 Magnesium 2.4 Total Bilirubin 0.7 AST 20 ALT 20 Alkaline Phosphatase 88 Total Protein 5.8 L Albumin 3.1 L Vitamin E 1.2 L Alpha-Tocopherol Vit E 24.5 H Active Medications Generic Name Dose Route Start Last Admin Trade Name Capoq PRN Reason Stop Dose Admin Acetaminophen 500 mg 06/07/19 10:56 06/09/19 07:08 Ofirmev Injection - IVPB 500 mg Q6H PRN Administration FEVER Bacitracin 1 applic 05/29/19 18:45 06/13/19 09:07 Bacitracin - TP 1 applic DAILY [facility] Administration Bupropion HCl 300 mg 06/04/19 08:00 06/13/19 07:17 Wellbutrin Xl - PO 300 mg 0800 [facility] Administration Diltiazem HCl 180 mg 06/03/19 22:00 06/12/19 21:13 Cardizem Cd - PO 180 mg HS [facility] Administration Docusate Sodium 100 mg 12/01/19 10:55 06/12/19 21:13 Colace - PO 100 mg BID PRN Administration CONSTIPATION Emollient Ointment 1 applic 05/29/19 22:00 06/13/19 09:07 Aquaphor - TP 1 applic BID [facility] Administration Enoxaparin Sodium 30 mg 06/10/19 10:00 06/13/19 09:08 Lovenox - SQ 30 mg DAILY [facility] Administration Meropenem 1 gm/ Dextrose 100 mls @ 200 mls/hr 06/07/19 22:00 06/13/19 09:06 IVPB 200 mls/hr Q12H [facility] Administration Dextrose/Sodium Chloride 1,000 mls @ 50 mls/hr 06/08/19 23:30 06/13/19 00:35 D5-1/2ns - IV 50 mls/hr ASDIR [facility] Administration Vancomycin HCl 1,000 mg in 250 mls @ 166.667 mls/hr 06/09/19 15:30 06/12/19 14:37 Vancomycin (Pre-Docked) IVPB 166.667 mls/hr Q24H [facility] Administration Protocol Liothyronine Sodium 25 mcg 06/04/19 08:00 06/13/19 07:18 Cytomel - PO 25 mcg DAILY@0800 [facility] Administration Mupirocin 1 applic 05/29/19 14:15 06/13/19 09:08 Bactroban 2% Ointment - TP 1 applic DAILY [facility] Administration Nystatin 1 applic 05/31/19 22:00 06/13/19 09:06 Mycostatin Cream - TP 1 applic BID [facility] Administration Polyethylene Glycol 17 gm 06/11/19 11:00 06/13/19 09:06 Miralax (For Daily Use) - PO 17 grams DAILY [facility] Administration Senna 2 tab 05/30/19 22:00 06/12/19 21:14 Senna - PO 2 tab HS [facility] Administration Sertraline HCl 100 mg 06/04/19 08:00 06/13/19 07:17 Zoloft - PO 100 mg DAILY@0800 [facility] Administration Ziprasidone 20 mg 06/05/19 16:00 06/13/19 07:18 Geodon Injection - IM 20 mg Q8H [facility] Administration Microbiology 06/07/19 09:10 Blood - Peripheral Venous Blood Culture - Final NO GROWTH AFTER 5 DAYS INCUBATION 06/07/19 09:10 Blood - Peripheral Venous Blood Culture - Final NO GROWTH AFTER 5 DAYS INCUBATION 06/05/19 14:55 Blood - Peripheral Venous Blood Culture - Final NO GROWTH AFTER 5 DAYS INCUBATION 06/05/19 14:30 Blood - Peripheral Venous Blood Culture - Final NO GROWTH AFTER 5 DAYS INCUBATION 06/04/19 19:17 Blood - Peripheral Venous Blood Culture - Final NO GROWTH AFTER 5 DAYS INCUBATION 06/04/19 19:12 Blood - Peripheral Venous Blood Culture - Final NO GROWTH AFTER 5 DAYS INCUBATION 06/07/19 09:00 Urine - Urine - Catheterized Urine Culture - Final NO GROWTH OBTAINED 06/04/19 19:39 Urine - Urine - Catheterized Urine Culture - Final Escherichia Coli 06/01/19 19:00 Urine - Urine - Catheterized Urine Culture - Final NO GROWTH OBTAINED ASSESSMENT/PLAN: 73 year-old female with a PMH significant for schizoaffective disorder, depression, degenerative disc disease, s/p left total hip replacement. Admitted following a fall at home. Severe sepsis secondary to E. coli UTI --afebrile since 06/08, mild leukocytosis --continue meropenem (day #10), vanc (day #7) Schizoaffective disorder --episodes of agitation, muscle rigidity, non purposeful movements are much improved on geodon dosing q8h --no ativan as it leads to oversedation and respiratory depression --continue bupropion, sertraline, liothyronine Hypertension --continue cardizem CD 180mg daily; goal for age group is 150/90 Compression fractures, chronic --ortho consult: no surgical intervention, weight-bearing as tolerated, PT Fungal dermatitis, improved --Nystatin cream Peripheral vascular disease --chronic venous stasis changes Knee abrasions, resolved Prolonged QT interval --on anti-psychotic meds; avoid additional QT prolonging agents --keep K>4, Mg>2 Severe protein calorie malnutrition --BMI 12.9, severe depletion of subq fat and muscle mass in the orbital, temporal and clavicular regions Functional quadriplegia --completely dependent for all ADLs, needs to be fed, toileted, positioned FEN Fluids: PO intake adequate Electrolytes: replete as indicated Nutrition: regular diet; Ensure, Magic cup, prosource; barium swallow eval done on 05/31, normal study DVT prophylaxis: subq heparin Physical therapy Dispo: continues to require inpatient care. Full code Visit type - Emergency Visit Emergency Visit: Yes ED Registration Date: 05/28/19 Care time: The patient presented to the Emergency Department on the above date and was hospitalized for further evaluation of their emergent condition. - New Patient This patient is new to me today: No - Critical Care Critical Care patient: No
[2019-06-13] MEDS: VANCOMYCIN 1 GRAM (PRE-DOCKED) 1,000 MG/250 ML BAG IVPB SCH (14:48)
[2019-06-13] MEDS: SENNOSIDES 8.6MG TABLET (FP) PO SCH (21:23)
[2019-06-13] MEDS ORDERED: SENNOSIDES 8.6MG TABLET (FP) PO SCH (22:00)
[2019-06-14] MEDS: LIOTHYRONINE SODIUM 25 MCG TABLET PO SCH (07:22)
[2019-06-14] MEDS: ZIPRASIDONE 20 MG VIAL IM SCH ×2 (07:22→15:02)
[2019-06-14] MEDS: SERTRALINE HCL 50 MG TABLET (FP) PO SCH (07:22)
[2019-06-14] MEDS ORDERED: MEROPENEM 1 GM VIAL (RESTRICTED TO ID) IVPB ONE (07:49)
[2019-06-14] MEDS ORDERED: DEXTROSE 5%-WATER 100 ML IVPB ONE (07:49)
--- NOTE | 2019-06-14 08:46 | PN ---
Physical Exam: SUBJECTIVE: Patient seen and examined OBJECTIVE: Vital Signs Period Temp Pulse Resp BP Sys/Miller Pulse Ox Last 24 Hr 97.1 F-98.4 F 81-87 16-19 142-158/74-89 97-100 GENERAL: The patient is awake, alert, and fully oriented, in no acute distress. HEAD: Normal with no signs of trauma. EYES: PERRL, extraocular movements intact, sclera anicteric, conjunctiva clear. No ptosis. ENT: Ears normal, nares patent, oropharynx clear without exudates, moist mucous membranes. NECK: Trachea midline, full range of motion, supple. LUNGS: Breath sounds equal, clear to auscultation bilaterally, no wheezes, no crackles, no accessory muscle use. HEART: Regular rate and rhythm, S1, S2 without murmur, rub or gallop. ABDOMEN: Soft, nontender, nondistended, normoactive bowel sounds, no guarding, no rebound, no hepatosplenomegaly, no masses. EXTREMITIES: 2+ pulses, warm, well-perfused, no edema. NEUROLOGICAL: Cranial nerves II through XII grossly intact. Normal speech, gait not observed. PSYCH: Normal mood, normal affect. SKIN: Warm, dry, normal turgor, no rashes or lesions noted Laboratory Results - last 24 hr 06/02/19 06:55 Vitamin E 1.2 L Alpha-Tocopherol Vit E 24.5 H Active Medications Generic Name Dose Route Start Last Admin Trade Name Freq PRN Reason Stop Dose Admin Acetaminophen 500 mg 06/07/19 10:56 06/09/19 07:08 Ofirmev Injection - IVPB 500 mg Q6H PRN Administration FEVER Bupropion HCl 300 mg 06/04/19 08:00 06/14/19 07:24 Wellbutrin Xl - PO 300 mg 0800 [facility] Administration Diltiazem HCl 180 mg 06/03/19 22:00 06/13/19 21:22 Cardizem Cd - PO 180 mg HS [facility] Administration Emollient Ointment 1 applic 05/29/19 22:00 06/13/19 21:22 Aquaphor - TP 1 applic BID [facility] Administration Enoxaparin Sodium 30 mg 06/10/19 10:00 06/13/19 09:08 Lovenox - SQ 30 mg DAILY [facility] Administration Meropenem 1 gm/ Dextrose 100 mls @ 200 mls/hr 06/07/19 22:00 06/13/19 21:22 IVPB 200 mls/hr Q12H [facility] Administration Vancomycin HCl 1,000 mg in 250 mls @ 166.667 mls/hr 06/09/19 15:30 06/13/19 14:48 Vancomycin (Pre-Docked) IVPB 166.667 mls/hr Q24H [facility] Administration Protocol Liothyronine Sodium 25 mcg 06/04/19 08:00 06/14/19 07:22 Cytomel - PO 25 mcg DAILY@0800 [facility] Administration Nystatin 1 applic 05/31/19 22:00 06/13/19 21:23 Mycostatin Cream - TP 1 applic BID [facility] Administration Polyethylene Glycol 17 gm 06/13/19 22:00 06/13/19 21:24 Miralax (For Daily Use) - PO 17 gm BID [facility] Administration Senna 2 tab 05/30/19 22:00 06/13/19 21:23 Senna - PO Not Given HS [facility] Senna 1 tab 06/13/19 22:00 06/13/19 21:23 Senna - PO 1 tab HS [facility] Administration Sertraline HCl 100 mg 06/04/19 08:00 06/14/19 07:22 Zoloft - PO 100 mg DAILY@0800 [facility] Administration Ziprasidone 20 mg 06/05/19 16:00 06/14/19 07:22 Geodon Injection - IM 20 mg Q8H [facility] Administration ASSESSMENT/PLAN:
[2019-06-14] MEDS: ENOXAPARIN NA (PORCINE) 30 MG/0.3 ML DISP.SYRIN SQ SCH (09:18)
[2019-06-14] MEDS: MEROPENEM 1 GM in DEXTROSE 5%-WATER 100 ML IVPB SCH (09:18)
[2019-06-14] MEDS: POLYETHYLENE GLYCOL 3350 119 GM BTL PO SCH (09:19)
[2019-06-14] MEDS: MINERAL OIL/PET HY-PHL TOPICAL OINTMENT 454 GM JAR TP SCH (09:19)
[2019-06-14] MEDS: NYSTATIN 100,000 UNIT/GM TOPICAL CREAM 15 GM TUBE TP SCH (09:20)
--- NOTE | 2019-06-14 12:30 | DS ---
Physical Exam: SUBJECTIVE: Patient seen and examined OBJECTIVE: Vital Signs Period Temp Pulse Resp BP Sys/Miller Pulse Ox Last 24 Hr 97.1 F-98.4 F 81-85 16-19 142-158/74-89 97-100 PHYSICAL EXAM GENERAL: The patient is awake, alert. Making good eye contact. Responding to questions. LUNGS: CTA HEART: Regular rate and rhythm, S1, S2 ABDOMEN: Soft, nontender, nondistended, normoactive bowel sounds EXTREMITIES: 2+ pulses, warm, well-perfused, no edema. NEUROLOGICAL: Cranial nerves II through XII grossly intact. Normal speech, gait not observed. LABS CBCD WBC 11.8 K/mm3 (4.0-10.8) H 06/13/19 07:08 RBC 4.17 M/mm3 (3.60-5.2) 06/13/19 07:08 Hgb 13.3 GM/dl (10.7-15.3) 06/13/19 07:08 Hct 40.7 % (32.4-45.2) 06/13/19 07:08 MCV 97.6 fl (80-96) H 06/13/19 07:08 MCHC 32.7 g/dl (32.0-36.0) 06/13/19 07:08 RDW 14.3 % (11.6-15.6) 06/13/19 07:08 Plt Count 261 K/MM3 (134-434) 06/13/19 07:08 MPV 8.0 fl (7.5-11.1) 06/13/19 07:08 CMP Sodium 137 mmol/L (136-145) 06/13/19 07:08 Potassium 3.8 mmol/L (3.5-5.1) 06/13/19 07:08 Chloride 100 mmol/L (98-107) 06/13/19 07:08 Carbon Dioxide 30 mmol/L (21-32) 06/13/19 07:08 Anion Gap 7 MMOL/L (8-16) L 06/13/19 07:08 BUN 19.0 mg/dl (7-18) H 06/13/19 07:08 Creatinine 0.5 mg/dl (0.55-1.3) L 06/13/19 07:08 Calcium 9.0 mg/dl (8.5-10) 06/13/19 07:08 Total Bilirubin 0.7 mg/dl (0.2-1) 06/13/19 07:08 AST 20 U/L (15-37) 06/13/19 07:08 ALT 20 U/L (13-61) 06/13/19 07:08 Alkaline Phosphatase 88 U/L (45-117) 06/13/19 07:08 Total Protein 5.8 g/dl (6.4-8.2) L 06/13/19 07:08 Albumin 3.1 g/dl (3.4-5.0) L 06/13/19 07:08 Date of Admission:05/28/19 Date of Discharge: 06/14/19 Pre hospital course 89 year-old female with a PMH significant for schizoaffective disorder, depression, degenerative disc disease, s/p left total hip replacement. Brought to ED by [employer] after a fall at home It appears patient was opening her blinds, tripped, leaned against her bed and slid onto the floor. Patient states she fell onto her buttock. Patient then developed lower back pain radiating to lower legs. Patient did not take any medication for pain. Patient denied head injury. Denied loss of consciousness. Denied any other symptoms. Patient last saw a PCP in 2015. She has been treated for her psych illness by a psychiatrist over the phone for the past 3 years. Last time brought to an ED was [place] in 08-27. Hospital course s/p fall at home Compression fractures, chronic --05/28 CT spine: T11 compression fracture which may be subacute; no obvious bony retropulsion; moderate T12 and mild to moderate L4 vertebral body compression fractures, chronic; at least moderate lumbar levoscoliosis; multilevel degenerate facet arthropathy; multilevel disc bulging; L3-L4 central canal stenosis --was unable to ambulate with PT --seen and evaluated by ortho, no surgical intervention; weight bearing as tolerated and physical therapy Schizoaffective disorder --had two episodes of acute agitation in the ED and on hospital day #1; verified meds with her treating psychiatrist (Dr. Vadim Donohue [phone]; cell [phone]) and over the course of the hospital stay, with guidance of Dr. Huynh, psychiatrist, adjusted and titrated meds to very good effect --on discharge continue Wellbutrin XL 300mg daily, sertraline 100mg daily, ziprasidone 20mg IM q8h (this exceeds the recommended daily dose but patient has been tolerating well; caution in transitioning to PO as effective PO dose is unclear, will need close monitoring by psych) --NO BENZOS - do not administer any form of benzo, causes severe respiratory depression Severe sepsis secondary to E.coli UTI --completed course of meropenem (10 days ) and vanc (7 days) Minutes to complete discharge: 60 Discharge Summary Problems reviewed: Yes Reason For Visit: STATUS POST FALL Current Active Problems Anxiety (Acute) Ataxia (Acute) Back pain (Acute) Dementia (Acute) Depression (Acute) GERD (gastroesophageal reflux disease) (Acute) Hypothyroid (Acute) Status post fall (Acute) Condition: Fair - Instructions - Home Medications Comprehensive Discharge Medication List: Ambulatory Orders Bupropion HCl [Bupropion Xl] 300 mg PO DAILY 05/28/19 LORazepam [Ativan] 0.5 mg PO QID 05/28/19 Liothyronine Sodium 25 mcg PO DAILY 05/28/19 Omeprazole 40 mg PO DAILY 05/28/19 Sertraline HCl 200 mg PO DAILY 05/28/19 Ziprasidone HCl 80 mg PO DAILY 05/28/19 This patient is new to me today: No Emergency Visit: Yes ED Registration Date: 05/28/19 Care time: The patient presented to the Emergency Department on the above date and was hospitalized for further evaluation of their emergent condition. Critical Care patient: No - Discharge Referral Referred to [facility] Med P.C.: No
[2019-06-14 14:15] VITALS: BP 127/76; PULSE 87; TEMP 98
[2019-06-14] MEDS: VANCOMYCIN 1 GRAM (PRE-DOCKED) 1,000 MG/250 ML BAG IVPB SCH (14:32)
--- NOTE | 2019-06-14 15:22 | PN ---
Progress Note, Physician History of Present Illness: stable weak completed iv abx - Current Medication List Current Medications: Active Medications Acetaminophen (Ofirmev Injection -) 500 mg IVPB Q6H PRN PRN Reason: FEVER Last Admin: 06/09/19 07:08 Dose: 500 mg Bupropion HCl (Wellbutrin Xl -) 300 mg PO 0800 [facility] Last Admin: 06/14/19 07:24 Dose: 300 mg Diltiazem HCl (Cardizem Cd -) 180 mg PO HS [facility] Last Admin: 06/13/19 21:22 Dose: 180 mg Emollient Ointment (Aquaphor -) 1 applic TP BID [facility] Last Admin: 06/14/19 09:19 Dose: 1 applic Enoxaparin Sodium (Lovenox -) 30 mg SQ DAILY [facility] Last Admin: 06/14/19 09:18 Dose: 30 mg Meropenem 1 gm/ Dextrose 100 mls @ 200 mls/hr IVPB Q12H [facility] Last Admin: 06/14/19 09:18 Dose: 200 mls/hr Vancomycin HCl (Vancomycin (Pre-Docked)) 1,000 mg in 250 mls @ 166.667 mls/hr IVPB Q24H [facility]; Protocol Last Admin: 06/14/19 14:32 Dose: 166.667 mls/hr Liothyronine Sodium (Cytomel -) 25 mcg PO DAILY@0800 [facility] Last Admin: 06/14/19 07:22 Dose: 25 mcg Nystatin (Mycostatin Cream -) 1 applic TP BID [facility] Last Admin: 06/14/19 09:20 Dose: 1 applic Polyethylene Glycol (Miralax (For Daily Use) -) 17 gm PO BID [facility] Last Admin: 06/14/19 09:19 Dose: 17 gm Senna (Senna -) 2 tab PO HS [facility] Last Admin: 06/13/19 21:23 Dose: Not Given Senna (Senna -) 1 tab PO HS [facility] Last Admin: 06/13/19 21:23 Dose: 1 tab Sertraline HCl (Zoloft -) 100 mg PO DAILY@0800 [facility] Last Admin: 06/14/19 07:22 Dose: 100 mg Ziprasidone (Geodon Injection -) 20 mg IM Q8H [facility] Last Admin: 06/14/19 15:02 Dose: 20 mg - Objective Vital Signs: Vital Signs Temperature 98.0 F 06/14/19 14:14 Pulse Rate 87 06/14/19 14:14 Respiratory Rate 18 06/14/19 14:14 Blood Pressure 127/76 06/14/19 14:14 O2 Sat by Pulse Oximetry (%) 95 06/14/19 14:14 Constitutional: Yes: No Distress, Calm, Thin, Other (failure to thrive) Cardiovascular: Yes: S1, S2 Respiratory: Yes: Regular Gastrointestinal: Yes: Normal Bowel Sounds, Soft Musculoskeletal: Yes: WNL Extremities: Yes: Other Neurological: Yes: Alert Psychiatric: Yes: Other Labs: CBC, BMP 06/13/19 07:08 06/13/19 07:08 Assessment/Plan 73 year-old female with a PMH significant for schizoaffective disorder, depression, degenerative disc disease, s/p left total hip replacement. Admitted following a fall at home. fever uti weakness plan can change to [facility]inda for couple of days nutrition
[2019-06-15 14:11] LABS: PREALBUMIN 20.1 mg/dl (20-40)
== END 2019-06-14 15:21 | DRG 551 ==
LOC: FER 18:06 → FM/S 21:47
PROVIDERS: ADMIT Internal Medicine; ATTEND Nurse Practitioner Acute Care
DX: S22.089A Unspecified fracture of T11-T12 vertebra, initial encounter for closed fracture (principal); E43 Unspecified severe protein-calorie malnutrition; R53.2 Functional quadriplegia; A41.9 Sepsis, unspecified organism; R65.20 Severe sepsis without septic shock; Z68.1 Body mass index [BMI] 19.9 or less, adult; N39.0 Urinary tract infection, site not specified; F32.9 Major depressive disorder, single episode, unspecified; R62.7 Adult failure to thrive; F41.9 Anxiety disorder, unspecified; F25.9 Schizoaffective disorder, unspecified; R94.31 Abnormal electrocardiogram [ECG] [EKG]; E87.6 Hypokalemia; K59.00 Constipation, unspecified; I73.9 Peripheral vascular disease, unspecified; R27.0 Ataxia, unspecified; L30.8 Other specified dermatitis; S80.219A Abrasion, unspecified knee, initial encounter; B96.20 Unspecified Escherichia coli [E. coli] as the cause of diseases classified elsewhere; Z88.0 Allergy status to penicillin; W01.0XXA Fall on same level from slipping, tripping and stumbling without subsequent striking against object, initial encounter; Z91.81 History of falling; Y92.009 Unspecified place in unspecified non-institutional (private) residence as the place of occurrence of the external cause; Y99.9 Unspecified external cause status; Y93.9 Activity, unspecified; E03.9 Hypothyroidism, unspecified
CPT/HCPCS: 36415; 70450-TC; 71045-TC-FY; 71250-TC; 72100-TC-FY; 72131-TC; 74176-TC; 74230-TC-FY; 80048; 80053; 80076; 81003; 81015; 82550; 82553; 82565; 82607; 83605; 83735; 83935; 84100; 84132; 84134; 84300; 84425; 84439; 84443; 84446; 84481; 84484; 85025; 85027; 87040; 87086; 87186; 93005; 93306-TC; 97116-GP; 97163-GP; 99282-25; G0480; J0131; J1644; J7030